=== PATIENT | male | born 1945 | race American Indian/Alaskan Native ===

== ENCOUNTER 2018-06-24 05:55 | Inpatient (IN) | payer MEDICARE ==
--- NOTE | 2018-06-24 06:18 | Emergency Department Report ---
ED Altered Mental Status HPI - General Stated Complaint: AMS Time Seen by Provider: 06/24/18 06:03 Source: EMS Mode of arrival: Stretcher Limitations: Altered Mental Status - History of Present Illness Initial Comments: Patient is a 72-year-old male presents emergency room with complaints of altered mental status. Patient was brought in by EMS. Last known well time at Friday night at 10 PM. Patient was found in his bed speaking incomprehensible sounds. MD Complaint: altered mental status, confusion -: Sudden Severity: severe Consistency of Symptoms: constant - Related Data Home Medications Medication Instructions Recorded Confirmed Last Taken Insulin Aspart Prot/Aspart(Nf) 40 unit SQ QAM 07/09/13 01/17/16 01/16/16 [NovoLOG Mix 70/30 VIAL] Metformin HCl [Metformin] 1,000 mg PO BID 07/09/13 01/17/16 01/16/16 Metoprolol Tartrate 25 mg PO BID 07/09/13 01/17/16 01/16/16 Omeprazole 20 mg PO DAILY 07/09/13 01/17/16 01/16/16 Ergocalciferol [Vitamin D2] 1 cap PO QWEEK 01/17/16 01/17/16 Unknown Ipratropium/Albuter (Nf) 2 puff IH QID PRN 01/17/16 01/17/16 Unknown [Combivent Inhaler] glipiZIDE [Glucotrol] 5 mg PO QDAY 01/17/16 01/17/16 01/16/16 Previous Rx's Medication Instructions Recorded Last Taken Type Furosemide [Lasix TAB] 40 mg PO QDAY #30 tablet 07/18/14 01/16/16 Rx Gabapentin [Neurontin] 300 mg PO BID capsule 07/18/14 01/16/16 Rx Losartan [Cozaar] 25 mg PO QDAY #30 tablet 07/18/14 01/16/16 Rx Spironolactone [Aldactone] 25 mg PO QDAY #30 tablet 07/18/14 01/16/16 Rx Warfarin [Coumadin] 5 mg PO DAILY@1700 tablet 07/18/14 01/16/16 Rx Allergies Allergy/AdvReac Type Severity Reaction Status Date / Time nitroglycerin Allergy Severe Unknown Verified 01/16/16 17:45 ED Review of Systems ROS: Stated complaint: AMS Other details as noted in HPI Comment: Unobtainable due to pts medical conditions ED Past Medical Hx - Past Medical History Previous Medical History?: Yes Hx Hypertension: Yes Hx Congestive Heart Failure: Yes Hx Diabetes: Yes Hx Arthritis: Yes Hx Asthma: Yes (childhood asthma outgrown) - Surgical History Past Surgical History?: Yes Hx Open Heart Surgery: Yes (1999) - Family History Family history: no significant - Social History Smoking Status: Former Smoker Substance Use Type: None - Medications Home Medications: Home Medications Medication Instructions Recorded Confirmed Last Taken Type Insulin Aspart Prot/Aspart(Nf) 40 unit SQ QAM 07/09/13 01/17/16 01/16/16 History [NovoLOG Mix 70/30 VIAL] Metformin HCl [Metformin] 1,000 mg PO BID 07/09/13 01/17/16 01/16/16 History Metoprolol Tartrate 25 mg PO BID 07/09/13 01/17/16 01/16/16 History Omeprazole 20 mg PO DAILY 07/09/13 01/17/16 01/16/16 History Furosemide [Lasix TAB] 40 mg PO QDAY #30 tablet 07/18/14 01/17/16 01/16/16 Rx Gabapentin [Neurontin] 300 mg PO BID capsule 07/18/14 01/17/16 01/16/16 Rx Losartan [Cozaar] 25 mg PO QDAY #30 tablet 07/18/14 01/17/16 01/16/16 Rx Spironolactone [Aldactone] 25 mg PO QDAY #30 tablet 07/18/14 01/17/16 01/16/16 Rx Warfarin [Coumadin] 5 mg PO DAILY@1700 tablet 07/18/14 01/17/16 01/16/16 Rx Ergocalciferol [Vitamin D2] 1 cap PO QWEEK 01/17/16 01/17/16 Unknown History Ipratropium/Albuter (Nf) 2 puff IH QID PRN 01/17/16 01/17/16 Unknown History [Combivent Inhaler] glipiZIDE [Glucotrol] 5 mg PO QDAY 01/17/16 01/17/16 01/16/16 History ED Physical Exam - General Limitations: Altered Mental Status General appearance: alert, in no apparent distress - Head Head exam: Present: atraumatic, normocephalic - Eye Eye exam: Present: normal appearance, PERRL Pupils: Present: normal accommodation - ENT ENT exam: Present: mucous membranes moist - Neck Neck exam: Present: normal inspection - Respiratory Respiratory exam: Present: normal lung sounds bilaterally. Absent: respiratory distress - Cardiovascular Cardiovascular Exam: Present: regular rate, normal rhythm. Absent: systolic murmur, diastolic murmur, rubs, gallop - GI/Abdominal GI/Abdominal exam: Present: soft, normal bowel sounds - Rectal Rectal exam: Present: deferred - Extremities Exam Extremities exam: Present: normal inspection - Back Exam Back exam: Present: normal inspection - Neurological Exam Neurological exam: Present: altered - Expanded Neurological Exam Expanded Best Eye Response ([place]): (4) open spontaneously Best Motor Response ([place]): (4) withdraws to pain Best Verbal Response ([place]): (2) incomprehsible sounds [place] Total: 10 - Psychiatric Psychiatric exam: Present: normal affect, normal mood - Skin Skin exam: Present: warm, dry, intact, normal color. Absent: rash - Assessment Assessment Interval: Baseline - Level of Consciousness 1a. Level of Consciousness: arousable/minor stimuli - LOC Questions 1b. LOC Questions: answers no questions correctly - LOC Command 1c. LOC Commands: performs tasks correctly - Best Gaze 2. Best Gaze: normal - Visual 3. Visual: no visual loss - Facial Palsy 4. Facial Palsy: normal symmetrical movement - Motor Arm 5a. Motor Arm Left: no drift 5b. Motor Arm Right: no drift - Motor Leg 6a. Motor Leg Left: no drift 6b. Motor Leg Right: no drift - Limb Ataxia 7. Limb Ataxia: absent - Sensory 8. Sensory: normal - Best Language 9. Best Language: no aphasia - Dysarthria 10. Dysarthria: normal - Extinction and Inattention 11. Extinction/Inattention: no abnormality - Scoring Total Score: 3 Stroke Severity: Minor Stroke ED Course Vital Signs 06/24/18 06/24/18 06/24/18 06:13 06:23 07:39 Temperature 98.9 F Pulse Rate 105 H 89 Respiratory 20 20 Rate Blood Pressure 166/83 Blood Pressure [Left] O2 Sat by Pulse 100 99 Oximetry 06/24/18 08:29 Temperature Pulse Rate 87 Respiratory 22 Rate Blood Pressure Blood Pressure 170/79 [Left] O2 Sat by Pulse 99 Oximetry - Reevaluation(s) Reevaluation #1: Initial evaluation done. Patient appears distended to be able to protect his airway. Patient's satting 100%. Patient attempts to answer questions but only produces incomprehensible sounds. Patient's eyes are open. Patient withdraws to pain. 06/24/18 06:03 Reevaluation #2: Patient making attempts to answer questions. Patient able to say his last name but still difficult to understand. Family at bedside. Discussed case with family. Family states that Friday night the patient had a few drinks and and possibly on Friday the patient was drinking as well. Patient was found this morning by his son on the floor. Son states he was able to ambulate to the bed but was very confused and not acting right. 06/24/18 07:05 Reevaluation #3: Labs review. Discussed all results with family. Patient was admitted to the hospitalist service. Family agrees with plan of care. 06/24/18 07:46 - Consultations Consultation #1: Hospitalist consulted for admission. Hospitalist to admit patient. Bridge orders were placed 06/24/18 07:46 - Lab Data Result diagrams: 06/24/18 06:15 06/24/18 06:05 Lab Results 06/24/18 06/24/18 06/24/18 Range/Units 06:05 06:05 06:05 WBC (4.5-11.0) K/mm3 RBC (3.65-5.03) M/mm3 Hgb (11.8-15.2) gm/dl Hct (35.5-45.6) % MCV (84-94) fl MCH (28-32) pg MCHC (32-34) % RDW (13.2-15.2) % Plt Count (140-440) K/mm3 Lymph % (Auto) (13.4-35.0) % [place] % (Auto) (0.0-7.3) % Eos % (Auto) (0.0-4.3) % Baso % (Auto) (0.0-1.8) % Lymph # (1.2-5.4) K/mm3 [place] # (0.0-0.8) K/mm3 Eos # (0.0-0.4) K/mm3 Baso # (0.0-0.1) K/mm3 Seg Neutrophils % (40.0-70.0) % Seg Neutrophils # (1.8-7.7) K/mm3 Sodium 142 (137-145) mmol/L Potassium 4.4 (3.6-5.0) mmol/L Chloride 106.7 (98-107) mmol/L Carbon Dioxide 23 (22-30) mmol/L Anion Gap 17 mmol/L BUN 30 H (9-20) mg/dL Creatinine 1.6 H (0.8-1.5) mg/dL Estimated GFR 52 ml/min BUN/Creatinine Ratio 19 % Glucose 150 H (75-100) mg/dL Lactic Acid (0.7-2.0) mmol/L Calcium 9.3 (8.4-10.2) mg/dL Total Bilirubin 0.90 (0.1-1.2) mg/dL AST 67 H (5-40) units/L ALT 18 (7-56) units/L Alkaline Phosphatase 82 (35-129) units/L Total Creatine Kinase 2694 H (55-170) units/L Troponin T 0.056 H (0.00-0.029) ng/mL Total Protein 7.6 (6.3-8.2) g/dL Albumin 3.7 L (3.9-5) g/dL Albumin/Globulin Ratio 0.9 % Urine Color Yellow (Yellow) Urine Turbidity Clear (Clear) Urine pH 5.0 (5.0-7.0) Ur Specific [place] 1.023 (1.003-1.030) Urine Protein 100 mg/dl (Negative) mg/dL Urine Glucose (UA) Neg (Negative) mg/dL Urine Ketones Tr (Negative) mg/dL Urine Blood Lg (Negative) Urine Nitrite Neg (Negative) Urine Bilirubin Neg (Negative) Urine Urobilinogen 2.0 (<2.0) mg/dL Ur Leukocyte Esterase Neg (Negative) Urine WBC (Auto) 1.0 (0.0-6.0) /HPF Urine RBC (Auto) 12.0 (0.0-6.0) /HPF Urine Bacteria (Auto) 1+ (Negative) /HPF Urine Mucus Few /HPF Urine Opiates Screen Presumptive negative Urine Methadone Screen Presumptive negative Ur Barbiturates Screen Presumptive negative Ur Phencyclidine Scrn Presumptive negative Ur Amphetamines Screen Presumptive negative U Benzodiazepines Scrn Presumptive negative Urine Cocaine Screen Presumptive negative U Marijuana (THC) Screen Presumptive negative Drugs of Abuse Note Disclamer Plasma/Serum Alcohol (0-0.07) % 06/24/18 06/24/18 06/24/18 Range/Units 06:05 06:15 06:23 WBC 12.8 H (4.5-11.0) K/mm3 RBC 3.96 (3.65-5.03) M/mm3 Hgb 12.1 (11.8-15.2) gm/dl Hct 35.7 (35.5-45.6) % MCV 90 (84-94) fl MCH 31 (28-32) pg MCHC 34 (32-34) % RDW 14.2 (13.2-15.2) % Plt Count 190 (140-440) K/mm3 Lymph % (Auto) 13.8 (13.4-35.0) % [place] % (Auto) 11.3 H (0.0-7.3) % Eos % (Auto) 0.1 (0.0-4.3) % Baso % (Auto) 0.5 (0.0-1.8) % Lymph # 1.8 (1.2-5.4) K/mm3 [place] # 1.5 H (0.0-0.8) K/mm3 Eos # 0.0 (0.0-0.4) K/mm3 Baso # 0.1 (0.0-0.1) K/mm3 Seg Neutrophils % 74.3 H (40.0-70.0) % Seg Neutrophils # 9.5 H (1.8-7.7) K/mm3 Sodium (137-145) mmol/L Potassium (3.6-5.0) mmol/L Chloride (98-107) mmol/L Carbon Dioxide (22-30) mmol/L Anion Gap mmol/L BUN (9-20) mg/dL Creatinine (0.8-1.5) mg/dL Estimated GFR ml/min BUN/Creatinine Ratio % Glucose (75-100) mg/dL Lactic Acid 2.70 H* (0.7-2.0) mmol/L Calcium (8.4-10.2) mg/dL Total Bilirubin (0.1-1.2) mg/dL AST (5-40) units/L ALT (7-56) units/L Alkaline Phosphatase (35-129) units/L Total Creatine Kinase (55-170) units/L Troponin T (0.00-0.029) ng/mL Total Protein (6.3-8.2) g/dL Albumin (3.9-5) g/dL Albumin/Globulin Ratio % Urine Color (Yellow) Urine Turbidity (Clear) Urine pH (5.0-7.0) Ur Specific [place] (1.003-1.030) Urine Protein (Negative) mg/dL Urine Glucose (UA) (Negative) mg/dL Urine Ketones (Negative) mg/dL Urine Blood (Negative) Urine Nitrite (Negative) Urine Bilirubin (Negative) Urine Urobilinogen (<2.0) mg/dL Ur Leukocyte Esterase (Negative) Urine WBC (Auto) (0.0-6.0) /HPF Urine RBC (Auto) (0.0-6.0) /HPF Urine Bacteria (Auto) (Negative) /HPF Urine Mucus /HPF Urine Opiates Screen Urine Methadone Screen Ur Barbiturates Screen Ur Phencyclidine Scrn Ur Amphetamines Screen U Benzodiazepines Scrn Urine Cocaine Screen U Marijuana (THC) Screen Drugs of Abuse Note Plasma/Serum Alcohol < 0.01 (0-0.07) % - EKG Data -: EKG Interpreted by Fl EKG shows normal: axis, intervals, QRS complexes, ST-T waves Rate: normal Interpretation: other (afib) - Radiology Data Radiology results: report reviewed PROCEDURE: CT HEAD/BRAIN WO CON TECHNIQUE: Routine axial imaging was obtained of the brain without contrast. HISTORY: Altered Mental Status COMPARISONS: None FINDINGS: There is motion artifact compromising multiple images. There is age-related volume loss. The ventricular system is appropriate in size and is symmetric. There are remote lacunar infarcts in the basal ganglia on the right side. There are remote lacunar infarcts in the lower [place]. There is no evidence of acute stroke or hemorrhage. The calvarium appears intact. The sinuses reveal patchy mucosal thickening in the ethmoidal air cells. IMPRESSION: Age-related volume loss with remote lacunar infarcts in the right basal ganglia and [place]. No evidence of acute stroke or hemorrhage. Mild bilateral ethmoidal sinusitis.. PROCEDURE: XR CHEST 1V AP TECHNIQUE: Chest radiograph single view. HISTORY: Altered Mental Status COMPARISONS: None . FINDINGS: Heart: Normal. Mediastinum/Vessels: Normal. Lungs/Pleural space: Normal. Bony thorax: No acute osseous abnormality. Life support devices: None. IMPRESSION: No acute cardiopulmonary abnormality. - Medical Decision Making Patient is a 72-year-old male presents emergency room with complaints of altered mental status. Patient will be admitted to the hospitalist service. Patient had a head CT was negative. Patient's chest x-ray unremarkable. Patient has some abnormalities on his lab. Patient's labs remarkable for elevated troponin and elevated CK and elevated WBC. UA is essentially normal.EKG done shows A. fib with a normal rate, All other intervals within normal limits. Patient's EKG consistent with mild rhabdomyolysis. Patient's troponin most likely elevated due to the renal insufficiency and A. fib and dehydration. Case fully discussed with hospitalist. Hospitalist to admit patient. - Differential Diagnosis dehydration. ams./ Encephalopathy. UTI Critical Care Time: Yes Critical care attestation.: If time is entered above; I have spent that time in minutes in the direct care of this critically ill patient, excluding procedure time. Critical Care Time: 45 minutes ED Disposition Clinical Impression: Encephalopathy, Dehydration, Acute renal insufficiency, Lactic acid acidosis, Elevated troponin Altered mental state Qualifiers: Altered mental status type: unspecified Qualified Code(s): R41.82 - Altered mental status, unspecified Rhabdomyolysis Qualifiers: Rhabdomyolysis type: non-traumatic Qualified Code(s): M62.82 - Rhabdomyolysis Afib Qualifiers: Atrial fibrillation type: chronic Qualified Code(s): I48.2 - Chronic atrial fibrillation Disposition: OP ADMIT IP TO THIS HOSP Is pt being admited?: Yes Does the pt Need Aspirin: No Condition: Critical Time of Disposition: 07:53
[2018-06-24 06:23] LABS: Basophils # (Auto) 0.1 K/mm3 (0.0-0.1); Basophils % (Auto) 0.5 % (0.0-1.8); Eosinophils % (Auto) 0.1 % (0.0-4.3); Hematocrit 35.7 % (35.5-45.6); Hemoglobin 12.1 gm/dl (11.8-15.2); Lymphocytes # (Auto) 1.8 K/mm3 (1.2-5.4); Lymphocytes % (Auto) 13.8 % (13.4-35.0); Mean Corpuscular HGB Conc 34 % (32-34); Mean Corpuscular Volume 90 fl (84-94); Monocytes # (Auto) 1.5 K/mm3 (0.0-0.8); Monocytes % (Auto) 11.3 % (0.0-7.3); Platelet Count 190 K/mm3 (140-440); Red Blood Count 3.96 M/mm3 (3.65-5.03); Red Cell Distribution Width 14.2 % (13.2-15.2)
[2018-06-24 06:28] LABS: Bacteria,Urine 1+ /HPF (Negative); Bilirubin,Urine NEG (Negative); Blood,Urine LG (Negative); Color,Urine Yellow (Yellow); Mucus,Urine FEW /HPF
[2018-06-24] MEDS ORDERED: MAXIPIME/NS 2 GM/100 ML 2 GM/100 ML BAG IV ONE (06:32)
[2018-06-24 06:34] LABS: Amphetamine Screen,Urine PRESUMPTIVE NEGATIVE; Benzodiazepines Screen,Urine PRESUMPTIVE NEGATIVE; Cannabinoid Screen,Urine PRESUMPTIVE NEGATIVE; Cocaine Screen,Urine PRESUMPTIVE NEGATIVE; Methadone Screen,Urine PRESUMPTIVE NEGATIVE; Opiate Screen,Urine PRESUMPTIVE NEGATIVE
[2018-06-24 06:42] LABS: Albumin 3.7 g/dL (3.9-5); Calcium 9.3 mg/dL (8.4-10.2)
--- NOTE | 2018-06-24 06:47 | XRay Report ---
PROCEDURE: XR CHEST 1V AP TECHNIQUE: Chest radiograph single view. HISTORY: Altered Mental Status COMPARISONS: None . FINDINGS: Heart: Normal. Mediastinum/Vessels: Normal. Lungs/Pleural space: Normal. Bony thorax: No acute osseous abnormality. Life support devices: None. IMPRESSION: No acute cardiopulmonary abnormality. This document is electronically signed by Brian Peterson MD., June 24 2018 06:45:21 AM ET
--- NOTE | 2018-06-24 07:17 | Cat Scan Report ---
PROCEDURE: CT HEAD/BRAIN WO CON TECHNIQUE: Routine axial imaging was obtained of the brain without contrast. HISTORY: Altered Mental Status COMPARISONS: None FINDINGS: There is motion artifact compromising multiple images. There is age-related volume loss. The ventricu lar system is appropriate in size and is symmetric. There are remote lacunar infarcts in the basal [place] on the right side. There are remote lacunar infarcts in the lower [place]. There is no evidence of acute stroke or hemorrhage. The calvarium appears intact. The sinuses reveal patchy mucosal thickeni ng in the ethmoidal air cells. IMPRESSION: Age-related volume loss with remote lacunar infarcts in the right basal ganglia and [place]. No evidence of acute stroke or hemorrhage. Mild bilateral ethmoidal sinusitis.. This document is electronically signed by Satya Pastor MD., June 24 2018 07:15:52 AM ET
[2018-06-24] MEDS ORDERED: NACL 0.9% 1000 ML 1,000 ML IV ONE ×2 (07:30→07:34)
[2018-06-24] MEDS ORDERED: ZOFRAN IV PRN (08:27)
[2018-06-24] MEDS ORDERED: MILK OF MAGNESIA PO PRN (08:27)
[2018-06-24] MEDS ORDERED: REGLAN PO PRN (08:27)
[2018-06-24] MEDS ORDERED: PHENERGAN PR PRN (08:27)
[2018-06-24] MEDS ORDERED: DULCOLAX PR PRN (08:27)
[2018-06-24] MEDS ORDERED: SODIUM CHLORIDE FLUSH SYRINGE 10 ML IV PRN (08:27)
[2018-06-24] MEDS ORDERED: D50W (25GM) Syringe IV PRN (08:29)
[2018-06-24] MEDS ORDERED: NACL 0.9% 1000 ML 1,000 ML IV SCH (09:00)
[2018-06-24 09:40] LABS: Chol/HDL Ratio 2.25 %
[2018-06-24] MEDS ORDERED: ASPIRIN PR ONE (10:30)
--- NOTE | 2018-06-24 11:49 | History and Physical Report ---
History of Present Illness Date of examination: 06/24/18 Date of admission: 06/24/18 07:50 Chief complaint: Altered mental status History of present illness: History is obtained from his son and chart review. Patient was altered and was not able to give any history. 72-year-old -Serbian male with past medical history significant for hypertension, CAD status post CABG, chronic A. fib, diabetes mellitus, hyperlipidemia, prostate cancer was brought to the emergency department via EMS after he was found by his son lying in the floor around 1 AM this morning. His son said the last time he saw the patient was yesterday morning and at that time patient didn't have any problems. This morning her symptoms lying the floor, lost bowel and bladder activity, drooling of saliva but no seizure activity or fascial palsy. In the emergency department patient has elevated lactic acid level, elevated CK and mild leukocytosis. Patient admitted to the floor for further evaluation and management. I will do CVA workup, IV fluids. ROS couldn't obtained because of altered mental status. Past History Past Medical History: atrial fib, diabetes, hypertension, hyperlipidemia Past Surgical History: CABG Social history: smoking (smokes cigarretes but son was not sure how many), full code. denies: alcohol abuse, prescription drug abuse, IV drug use Family history: no significant family history Medications and Allergies Allergies Allergy/AdvReac Type Severity Reaction Status Date / Time nitroglycerin Allergy Severe Unknown Verified 01/16/16 17:45 Home Medications Medication Instructions Recorded Confirmed Last Taken Type Insulin Aspart Prot/Aspart(Nf) 40 unit SQ QAM 07/09/13 01/17/16 01/16/16 History [NovoLOG Mix 70/30 VIAL] Metformin HCl [Metformin] 1,000 mg PO BID 07/09/13 01/17/16 01/16/16 History Metoprolol Tartrate 25 mg PO BID 07/09/13 01/17/16 01/16/16 History Omeprazole 20 mg PO DAILY 07/09/13 01/17/16 01/16/16 History Furosemide [Lasix TAB] 40 mg PO QDAY #30 tablet 07/18/14 01/17/16 01/16/16 Rx Gabapentin [Neurontin] 300 mg PO BID capsule 07/18/14 01/17/16 01/16/16 Rx Losartan [Cozaar] 25 mg PO QDAY #30 tablet 07/18/14 01/17/16 01/16/16 Rx Spironolactone [Aldactone] 25 mg PO QDAY #30 tablet 07/18/14 01/17/16 01/16/16 Rx Warfarin [Coumadin] 5 mg PO DAILY@1700 tablet 07/18/14 01/17/16 01/16/16 Rx Ergocalciferol [Vitamin D2] 1 cap PO QWEEK 01/17/16 01/17/16 Unknown History Ipratropium/Albuter (Nf) 2 puff IH QID PRN 01/17/16 01/17/16 Unknown History [Combivent Inhaler] glipiZIDE [Glucotrol] 5 mg PO QDAY 01/17/16 01/17/16 01/16/16 History Active Meds: Active Medications Acetaminophen (Tylenol) 650 mg PO Q4H PRN PRN Reason: Pain, Mild (1-3) Atorvastatin Calcium (Lipitor) 40 mg PO QHS MICHEL Bisacodyl (Dulcolax) 10 mg AK QDAY PRN PRN Reason: Constipation Dextrose (D50w (25gm) Syringe) 50 ml IV PRN PRN PRN Reason: Hypoglycemia Sodium Chloride (Nacl 0.9% 1000 Ml) 1,000 mls @ 100 mls/hr IV DIRECT MICHEL Levetiracetam 750 mg/ Sodium (Chloride) 107.5 mls @ 400 mls/hr IV Q12HR MICHEL Insulin Human Lispro (Humalog) 0 unit SUB-Q ACHS MICHEL; Protocol Lorazepam (Ativan) 1 mg IV ONCE PRN PRN Reason: Agitation Magnesium Hydroxide (Milk Of Magnesia) 30 ml PO Q4H PRN PRN Reason: Constipation Metoclopramide HCl (Reglan) 10 mg PO Q6H PRN PRN Reason: Nausea And Vomiting Ondansetron HCl (Zofran) 4 mg IV Q8H PRN PRN Reason: Nausea And Vomiting Promethazine HCl (Phenergan) 25 mg AK Q6H PRN PRN Reason: Nausea And Vomiting Sodium Chloride (Sodium Chloride Flush Syringe 10 Ml) 10 ml IV PRN PRN PRN Reason: LINE FLUSH Review of Systems ROS unobtainable: due to mental status (Couldn't obtained baecause of AMS.) Exam - Physical Exam Narrative exam: Patient is confused, incoherent. The patient appeared well nourished and normally developed. Vital signs as documented. Head exam is unremarkable. No scleral icterus . Neck is without jugular venous distension, thyromegaly, or carotid bruits. Lungs are clear to auscultation. Cardiac exam reveals regular rate and Rhythm. Abdominal exam reveals normal bowel sounds. Extremities are nonedematous and both femoral and pedal pulses are normal. [employer] SPECIALIST: confused, incoherent speech. - Constitutional Vitals: Temp Pulse Resp BP Pulse Ox 98.9 F 87 22 170/79 99 06/24/18 06:13 06/24/18 08:29 06/24/18 08:29 06/24/18 08:29 06/24/18 08:29 Results - Labs CBC & Chem 7: 06/24/18 06:15 06/24/18 06:05 Labs: Laboratory Last Values WBC 12.8 K/mm3 (4.5-11.0) H 06/24/18 06:15 RBC 3.96 M/mm3 (3.65-5.03) 06/24/18 06:15 Hgb 12.1 gm/dl (11.8-15.2) 06/24/18 06:15 Hct 35.7 % (35.5-45.6) 06/24/18 06:15 MCV 90 fl (84-94) 06/24/18 06:15 MCH 31 pg (28-32) 06/24/18 06:15 MCHC 34 % (32-34) 06/24/18 06:15 RDW 14.2 % (13.2-15.2) 06/24/18 06:15 Plt Count 190 K/mm3 (140-440) 06/24/18 06:15 Lymph % (Auto) 13.8 % (13.4-35.0) 06/24/18 06:15 [place] % (Auto) 11.3 % (0.0-7.3) H 06/24/18 06:15 Eos % (Auto) 0.1 % (0.0-4.3) 06/24/18 06:15 Baso % (Auto) 0.5 % (0.0-1.8) 06/24/18 06:15 Lymph # 1.8 K/mm3 (1.2-5.4) 06/24/18 06:15 [place] # 1.5 K/mm3 (0.0-0.8) H 06/24/18 06:15 Eos # 0.0 K/mm3 (0.0-0.4) 06/24/18 06:15 Baso # 0.1 K/mm3 (0.0-0.1) 06/24/18 06:15 Seg Neutrophils % 74.3 % (40.0-70.0) H 06/24/18 06:15 Seg Neutrophils # 9.5 K/mm3 (1.8-7.7) H 06/24/18 06:15 Sodium 142 mmol/L (137-145) 06/24/18 06:05 Potassium 4.4 mmol/L (3.6-5.0) 06/24/18 06:05 Chloride 106.7 mmol/L (98-107) 06/24/18 06:05 Carbon Dioxide 23 mmol/L (22-30) 06/24/18 06:05 Anion Gap 17 mmol/L 06/24/18 06:05 BUN 30 mg/dL (9-20) H 06/24/18 06:05 Creatinine 1.6 mg/dL (0.8-1.5) H 06/24/18 06:05 Estimated GFR 52 ml/min 06/24/18 06:05 BUN/Creatinine Ratio 19 % 06/24/18 06:05 Glucose 150 mg/dL (75-100) H 06/24/18 06:05 POC Glucose 147 (70-105) H 06/24/18 11:43 Lactic Acid 2.10 mmol/L (0.7-2.0) H* 06/24/18 08:37 Calcium 9.3 mg/dL (8.4-10.2) 06/24/18 06:05 Total Bilirubin 0.90 mg/dL (0.1-1.2) 06/24/18 06:05 AST 67 units/L (5-40) H 06/24/18 06:05 ALT 18 units/L (7-56) 06/24/18 06:05 Alkaline Phosphatase 82 units/L (35-129) 06/24/18 06:05 Total Creatine Kinase 2694 units/L (55-170) H 06/24/18 06:05 Troponin T 0.056 ng/mL (0.00-0.029) H 06/24/18 06:05 Total Protein 7.6 g/dL (6.3-8.2) 06/24/18 06:05 Albumin 3.7 g/dL (3.9-5) L 06/24/18 06:05 Albumin/Globulin Ratio 0.9 % 06/24/18 06:05 Triglycerides 81 mg/dL (2-149) 06/24/18 06:05 Cholesterol 142 mg/dL (50-199) 06/24/18 06:05 LDL Cholesterol Direct 75 mg/dL (50-130) 06/24/18 06:05 HDL Cholesterol 63 mg/dL (40-59) H 06/24/18 06:05 Cholesterol/HDL Ratio 2.25 % 06/24/18 06:05 Urine Color Yellow (Yellow) 06/24/18 06:05 Urine Turbidity Clear (Clear) 06/24/18 06:05 Urine pH 5.0 (5.0-7.0) 06/24/18 06:05 Ur Specific [place] 1.023 (1.003-1.030) 06/24/18 06:05 Urine Protein 100 mg/dl mg/dL (Negative) 06/24/18 06:05 Urine Glucose (UA) Neg mg/dL (Negative) 06/24/18 06:05 Urine Ketones Tr mg/dL (Negative) 06/24/18 06:05 Urine Blood Lg (Negative) 06/24/18 06:05 Urine Nitrite Neg (Negative) 06/24/18 06:05 Urine Bilirubin Neg (Negative) 06/24/18 06:05 Urine Urobilinogen 2.0 mg/dL (<2.0) 06/24/18 06:05 Ur Leukocyte Esterase Neg (Negative) 06/24/18 06:05 Urine WBC (Auto) 1.0 /HPF (0.0-6.0) 06/24/18 06:05 Urine RBC (Auto) 12.0 /HPF (0.0-6.0) 06/24/18 06:05 Urine Bacteria (Auto) 1+ /HPF (Negative) 06/24/18 06:05 Urine Mucus Few /HPF 06/24/18 06:05 Urine Opiates Screen Presumptive negative 06/24/18 06:05 Urine Methadone Screen Presumptive negative 06/24/18 06:05 Ur Barbiturates Screen Presumptive negative 06/24/18 06:05 Ur Phencyclidine Scrn Presumptive negative 06/24/18 06:05 Ur Amphetamines Screen Presumptive negative 06/24/18 06:05 U Benzodiazepines Scrn Presumptive negative 06/24/18 06:05 Urine Cocaine Screen Presumptive negative 06/24/18 06:05 U Marijuana (THC) Screen Presumptive negative 06/24/18 06:05 Drugs of Abuse Note Disclamer 06/24/18 06:05 Plasma/Serum Alcohol < 0.01 % (0-0.07) 06/24/18 06:05 Assessment and Plan Assessment and plan: Altered mental status - Patient was found lying in the floor, could be CVA versus seizure - MRI, MRA, carotid Dopplers, echo, neurology consult - Patient is on Keppra -Patient is able to take care of his airways History of A. fib on Coumadin - Going to check INR - Currently patient is sinus rhythm - Continue to restart his Coumadin Hypertension - Controlled Diabetes mellitus - Sliding-scale insulin, Accu-Chek, adjust his insulin as needed Rhabdomyolysis, lactic acidosis - Patient is on IV fluids DVT prophylaxis -SCD and now Disposition - Admit to MICU Advance Directives: Yes
[2018-06-24] MEDS ORDERED: ATIVAN IV PRN (12:00)
[2018-06-24] MEDS: KEPPRA 750 MG in NACL 0.9% 100 ML IV SCH ×2 (12:14→22:00)
[2018-06-24] MEDS: HumaLOG SUB-Q SCH ×3 (12:32→22:13)
[2018-06-24 13:43] LABS: INR 1.76 (0.87-1.13)
--- NOTE | 2018-06-24 18:07 | Consultation ---
History of Present Illness Consult date: 06/24/18 Chief complaint: found down, confused History of present illness: This is a 72 YO M with history of seizure who was found down , incontinent and found to have elevated CK and lactic acid. No famil david bedside, all history is as per chart. On my arrival pt is confused, makes eye contact but doesn't follow commands. Mumbles. Unclear if he is compliant with meds at home. Past History Past Medical History: atrial fib, diabetes, hypertension, hyperlipidemia Past Surgical History: CABG Social history: smoking (smokes cigarretes but son was not sure how many), full code. denies: alcohol abuse, prescription drug abuse, IV drug use Family history: no significant family history Medications and Allergies Allergies Allergy/AdvReac Type Severity Reaction Status Date / Time nitroglycerin Allergy Severe Unknown Verified 01/16/16 17:45 Home Medications Medication Instructions Recorded Confirmed Last Taken Type Insulin Aspart Prot/Aspart(Nf) 40 unit SQ QAM 07/09/13 01/17/16 01/16/16 History [NovoLOG Mix 70/30 VIAL] Metformin HCl [Metformin] 1,000 mg PO BID 07/09/13 01/17/16 01/16/16 History Metoprolol Tartrate 25 mg PO BID 07/09/13 01/17/16 01/16/16 History Omeprazole 20 mg PO DAILY 07/09/13 01/17/16 01/16/16 History Furosemide [Lasix TAB] 40 mg PO QDAY #30 tablet 07/18/14 01/17/16 01/16/16 Rx Gabapentin [Neurontin] 300 mg PO BID capsule 07/18/14 01/17/16 01/16/16 Rx Losartan [Cozaar] 25 mg PO QDAY #30 tablet 07/18/14 01/17/16 01/16/16 Rx Spironolactone [Aldactone] 25 mg PO QDAY #30 tablet 07/18/14 01/17/16 01/16/16 Rx Warfarin [Coumadin] 5 mg PO DAILY@1700 tablet 07/18/14 01/17/16 01/16/16 Rx Ergocalciferol [Vitamin D2] 1 cap PO QWEEK 01/17/16 01/17/16 Unknown History Ipratropium/Albuter (Nf) 2 puff IH QID PRN 01/17/16 01/17/16 Unknown History [Combivent Inhaler] glipiZIDE [Glucotrol] 5 mg PO QDAY 01/17/16 01/17/16 01/16/16 History Active Meds: Active Medications Acetaminophen (Tylenol) 650 mg PO Q4H PRN PRN Reason: Pain, Mild (1-3) Atorvastatin Calcium (Lipitor) 40 mg PO QHS MICHEL Bisacodyl (Dulcolax) 10 mg OR QDAY PRN PRN Reason: Constipation Dextrose (D50w (25gm) Syringe) 50 ml IV PRN PRN PRN Reason: Hypoglycemia Sodium Chloride (Nacl 0.9% 1000 Ml) 1,000 mls @ 100 mls/hr IV DIRECT MICHEL Levetiracetam 750 mg/ Sodium (Chloride) 107.5 mls @ 400 mls/hr IV Q12HR [facility] Last Infusion: 06/24/18 12:32 Dose: Infused Documented by: Insulin Human Lispro (Humalog) 0 unit SUB-Q ACHS [facility]; Protocol Last Admin: 06/24/18 16:34 Dose: Not Given Documented by: Lorazepam (Ativan) 1 mg IV ONCE PRN PRN Reason: Agitation Magnesium Hydroxide (Milk Of Magnesia) 30 ml PO Q4H PRN PRN Reason: Constipation Metoclopramide HCl (Reglan) 10 mg PO Q6H PRN PRN Reason: Nausea And Vomiting Ondansetron HCl (Zofran) 4 mg IV Q8H PRN PRN Reason: Nausea And Vomiting Promethazine HCl (Phenergan) 25 mg OR Q6H PRN PRN Reason: Nausea And Vomiting Sodium Chloride (Sodium Chloride Flush Syringe 10 Ml) 10 ml IV PRN PRN PRN Reason: LINE FLUSH Review of Systems ROS unobtainable: due to mental status Physical Examination - Vital Signs Vital Signs: Vital Signs Temp Pulse Resp BP Pulse Ox 98.9 F 105 H 20 166/83 100 06/24/18 06:13 06/24/18 06:13 06/24/18 06:13 06/24/18 06:13 06/24/18 06:13 - EENT EENT: Present: PERRL, mucous membranes moist - Respiratory Respiratory: Present: lungs clear - Cardiovascular Cardiovascular: Present: regular rate - Gastrointestinal Gastrointestinal: Present: normoactive bowel sounds - Neurologic Cranial nerve examination: PERRL, EOMI Detailed motor examination: grossly full strength in Detailed sensory examination: light touch Reflexes: 1+: ankle, bicep, knee, tricep Results - Laboratory Findings CBC and BMP: 06/24/18 06:15 06/24/18 06:05 Abnormal Lab Findings: Abnormal Labs 06/24/18 06/24/18 06/24/18 06:05 06:15 06:23 WBC 12.8 H [place] % (Auto) 11.3 H [place] # 1.5 H Seg Neutrophils % 74.3 H Seg Neutrophils # 9.5 H PT INR BUN 30 H Creatinine 1.6 H Glucose 150 H POC Glucose Lactic Acid 2.70 H* AST 67 H Total Creatine Kinase 2694 H Troponin T 0.056 H Albumin 3.7 L HDL Cholesterol 63 H 06/24/18 06/24/18 06/24/18 08:37 11:43 13:20 WBC [place] % (Auto) [place] # Seg Neutrophils % Seg Neutrophils # PT 21.7 H INR 1.76 H BUN Creatinine Glucose POC Glucose 147 H Lactic Acid 2.10 H* AST Total Creatine Kinase Troponin T Albumin HDL Cholesterol 06/24/18 16:23 WBC [place] % (Auto) [place] # Seg Neutrophils % Seg Neutrophils # PT INR BUN Creatinine Glucose POC Glucose 129 H Lactic Acid AST Total Creatine Kinase Troponin T Albumin HDL Cholesterol - Diagnostic Findings Additional findings: This is a 72 YO M with change in mental status, ? post ictal s/p seizure Recommend: EEG Will give extra dose of Keppra now, 750 mg, keep maintenance at 750 mg BID for now. If pt with non convulsive seizsures max out Keppra to 1500 mg BID MRI Brain to rule out other pathology that might be causing his symptoms ammonia, tsh, b12, ua uds if not already done avoid sedating meds when possible Continue care for all medical issues as you are doing
[2018-06-24] MEDS ORDERED: KEPPRA 1,000 MG in NACL 0.9% 100 ML IV ONE (18:08)
[2018-06-24] MEDS ORDERED: ATIVAN IV ONE (19:00)
--- NOTE | 2018-06-24 23:17 | Vascular Lab Report ---
PROCEDURE: VL CAROTID DUPLEX BILAT TECHNIQUE: Duplex Doppler ultrasound of the common, internal and external carotid arteries and the v ertebral arteries was performed bilaterally. Ponce scale imaging, velocity spectral waveform analysis, and color flow Doppler were employed. HISTORY: stroke COMPARISONS: None . Note: Measurement of carotid stenosis is based on flow velocity values that correlate with the [place] Symptomatic Carotid Endarterectomy Trial (NASCET) based stenosis criteria using the internal carotid artery diameter as the denominator for stenosis calculation. FINDINGS: RIGHT carotid artery: Velocities: ICA PSV: 88 cm/sec ICA End diastolic: 22 cm/sec CCA PSV: 102 cm/sec IC/CC ratio: 0.8 Plaque/color flow: Mild heterogeneous plaque without significant spectral broadening or abnormal col or flow . RIGHT vertebral artery: Antegrade systolic and diastolic flow LEFT carotid artery: Velocities: ICA PSV: 141 cm/sec ICA End diastolic: 15 cm/sec CCA PSV: 102 cm/sec IC/CC ratio: 1 Plaque/color flow: Mild heterogeneous plaque without significant spectral broadening or abnormal col or flow . LEFT vertebral artery: Not visualized on this study IMPRESSION: 1. RIGHT carotid: No hemodynamically significant (less than 50 percent) internal carotid artery liban nosis. 2. LEFT carotid: No hemodynamically significant (less than 50 percent) internal carotid artery sten osis. 3. Vertebral arteries: Right vertebral has a normal appearance. The left vertebral artery is not vi sualized on this study. This document is electronically signed by Kathi Ray DO., June 24 2018 11:15:57 PM ET
[2018-06-25 05:23] LABS: Basophils # (Auto) 0.1 K/mm3 (0.0-0.1); Basophils % (Auto) 1.4 % (0.0-1.8); Eosinophils # (Auto) 0.1 K/mm3 (0.0-0.4); Eosinophils % (Auto) 0.8 % (0.0-4.3); Hematocrit 36.4 % (35.5-45.6); Hemoglobin 12.1 gm/dl (11.8-15.2); Lymphocytes # (Auto) 1.9 K/mm3 (1.2-5.4); Lymphocytes % (Auto) 18.9 % (13.4-35.0); Mean Corpuscular HGB Conc 33 % (32-34); Mean Corpuscular Volume 92 fl (84-94); Monocytes # (Auto) 1.2 K/mm3 (0.0-0.8); Platelet Count 168 K/mm3 (140-440); Red Blood Count 3.97 M/mm3 (3.65-5.03); Red Cell Distribution Width 14.1 % (13.2-15.2)
[2018-06-25 05:50] LABS: BUN/Creatinine Ratio 21; Blood Urea Nitrogen 29 mg/dL (9-20); Calcium 9.5 mg/dL (8.4-10.2); Hemolysis Index 4
[2018-06-25] MEDS: HumaLOG SUB-Q SCH ×3 (08:00→17:03)
[2018-06-25] MEDS ORDERED: NON-FORMULARY (Omeprazole [Omeprazole] 20 MG) PO SCH (10:00)
--- NOTE | 2018-06-25 10:48 | XRay Report ---
AP ABDOMEN: HISTORY: Dobbhoff tube placement. The Dobbhoff tube is coiled in the stomach with its tip near the GE junction. The abdominal gas pattern is unremarkable. No masses or organomegaly is identified and there is no gross evidence of free air or fluid. No significant soft tissue calcifications are noted. IMPRESSION: Unremarkable abdomen. Dobbhoff tube as described.
[2018-06-25] MEDS ORDERED: SODIUM BICARBONATE FEEDTUBE PRN (12:55)
[2018-06-25] MEDS ORDERED: PANCREAZE DR 10,500 UNIT FEEDTUBE PRN (12:55)
[2018-06-25] MEDS ORDERED: SIMPLE SYRUP FEEDTUBE PRN ×2 (12:55)
--- NOTE | 2018-06-25 14:12 | XRay Report ---
AP ABDOMEN: HISTORY: Dobbhoff tube placement. The Dobbhoff tube is unchanged in position since earlier today at 0951 hours. The tube is coiled upon itself with the tip near the GE junction. The intestinal gas pattern remains unremarkable. IMPRESSION: No change.
[2018-06-25] MEDS: KEPPRA 750 MG in NACL 0.9% 100 ML IV SCH ×2 (14:44→22:41)
[2018-06-25] MEDS: ALDACTONE PO SCH (14:45)
[2018-06-25] MEDS: LASIX PO SCH (14:46)
[2018-06-25] MEDS: COZAAR PO SCH (14:46)
[2018-06-25] MEDS: LOPRESSOR PO SCH ×2 (14:46→22:43)
[2018-06-25] MEDS: PROTONIX PO SCH (14:47)
[2018-06-25] MEDS: NEURONTIN PO SCH ×2 (14:47→22:42)
--- NOTE | 2018-06-25 14:59 | Progress Note ---
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 His speech was incoherent Hospitalist Physical - Physical exam Narrative exam: Patient is confused, incoherent. The patient appeared well nourished and normally developed. Vital signs as documented. Head exam is unremarkable. No scleral icterus . Neck is without jugular venous distension, thyromegaly, or carotid bruits. Lungs are clear to auscultation. Cardiac exam reveals regular rate and Rhythm. Abdominal exam reveals normal bowel sounds. Extremities are nonedematous and both femoral and pedal pulses are normal. 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 - Constitutional Vitals: Temp Pulse Resp BP Pulse Ox 99.2 F 95 H 26 H 126/93 96 06/25/18 12:00 06/25/18 14:46 06/25/18 14:01 06/25/18 14:46 06/25/18 14:01 Results - Labs CBC & Chem 7: 06/25/18 05:05 06/25/18 05:05 Labs: Laboratory Last Values WBC 9.8 K/mm3 (4.5-11.0) 06/25/18 05:05 RBC 3.97 M/mm3 (3.65-5.03) 06/25/18 05:05 Hgb 12.1 gm/dl (11.8-15.2) 06/25/18 05:05 Hct 36.4 % (35.5-45.6) 06/25/18 05:05 MCV 92 fl (84-94) 06/25/18 05:05 MCH 30 pg (28-32) 06/25/18 05:05 MCHC 33 % (32-34) 06/25/18 05:05 RDW 14.1 % (13.2-15.2) 06/25/18 05:05 Plt Count 168 K/mm3 (140-440) 06/25/18 05:05 Lymph % (Auto) 18.9 % (13.4-35.0) 06/25/18 05:05 [place] % (Auto) 12.0 % (0.0-7.3) H 06/25/18 05:05 Eos % (Auto) 0.8 % (0.0-4.3) 06/25/18 05:05 Baso % (Auto) 1.4 % (0.0-1.8) 06/25/18 05:05 Lymph # 1.9 K/mm3 (1.2-5.4) 06/25/18 05:05 [place] # 1.2 K/mm3 (0.0-0.8) H 06/25/18 05:05 Eos # 0.1 K/mm3 (0.0-0.4) 06/25/18 05:05 Baso # 0.1 K/mm3 (0.0-0.1) 06/25/18 05:05 Seg Neutrophils % 66.9 % (40.0-70.0) 06/25/18 05:05 Seg Neutrophils # 6.5 K/mm3 (1.8-7.7) 06/25/18 05:05 PT 21.7 Sec. (12.2-14.9) H 06/24/18 13:20 INR 1.76 (0.87-1.13) H 06/24/18 13:20 Sodium 145 mmol/L (137-145) 06/25/18 05:05 Potassium 4.2 mmol/L (3.6-5.0) 06/25/18 05:05 Chloride 110.8 mmol/L (98-107) H 06/25/18 05:05 Carbon Dioxide 19 mmol/L (22-30) L 06/25/18 05:05 Anion Gap 19 mmol/L 06/25/18 05:05 BUN 29 mg/dL (9-20) H 06/25/18 05:05 Creatinine 1.4 mg/dL (0.8-1.5) 06/25/18 05:05 Estimated GFR > 60 ml/min 06/25/18 05:05 BUN/Creatinine Ratio 21 % 06/25/18 05:05 Glucose 163 mg/dL (75-100) H 06/25/18 05:05 POC Glucose 175 (70-105) H 06/25/18 11:41 Lactic Acid 1.60 mmol/L (0.7-2.0) 06/24/18 11:25 Calcium 9.5 mg/dL (8.4-10.2) 06/25/18 05:05 Total Bilirubin 0.90 mg/dL (0.1-1.2) 06/24/18 06:05 AST 67 units/L (5-40) H 06/24/18 06:05 ALT 18 units/L (7-56) 06/24/18 06:05 Alkaline Phosphatase 82 units/L (35-129) 06/24/18 06:05 Ammonia 53.0 umol/L (25-60) 06/24/18 19:42 Total Creatine Kinase 1644 units/L (55-170) H 06/25/18 07:49 Troponin T 0.071 ng/mL (0.00-0.029) H D 06/25/18 07:49 Total Protein 7.6 g/dL (6.3-8.2) 06/24/18 06:05 Albumin 3.7 g/dL (3.9-5) L 06/24/18 06:05 Albumin/Globulin Ratio 0.9 % 06/24/18 06:05 Triglycerides 81 mg/dL (2-149) 06/24/18 06:05 Cholesterol 142 mg/dL (50-199) 06/24/18 06:05 LDL Cholesterol Direct 75 mg/dL (50-130) 06/24/18 06:05 HDL Cholesterol 63 mg/dL (40-59) H 06/24/18 06:05 Cholesterol/HDL Ratio 2.25 % 06/24/18 06:05 Vitamin B12 653.2 pg/mL (211-911) 06/24/18 19:42 TSH 2.270 mlU/mL (0.270-4.200) 06/24/18 19:42 Urine Color Yellow (Yellow) 06/24/18 06:05 Urine Turbidity Clear (Clear) 06/24/18 06:05 Urine pH 5.0 (5.0-7.0) 06/24/18 06:05 Ur Specific [place] 1.023 (1.003-1.030) 06/24/18 06:05 Urine Protein 100 mg/dl mg/dL (Negative) 06/24/18 06:05 Urine Glucose (UA) Neg mg/dL (Negative) 06/24/18 06:05 Urine Ketones Tr mg/dL (Negative) 06/24/18 06:05 Urine Blood Lg (Negative) 06/24/18 06:05 Urine Nitrite Neg (Negative) 06/24/18 06:05 Urine Bilirubin Neg (Negative) 06/24/18 06:05 Urine Urobilinogen 2.0 mg/dL (<2.0) 06/24/18 06:05 Ur Leukocyte Esterase Neg (Negative) 06/24/18 06:05 Urine WBC (Auto) 1.0 /HPF (0.0-6.0) 06/24/18 06:05 Urine RBC (Auto) 12.0 /HPF (0.0-6.0) 06/24/18 06:05 Urine Bacteria (Auto) 1+ /HPF (Negative) 06/24/18 06:05 Urine Mucus Few /HPF 06/24/18 06:05 Urine Opiates Screen Presumptive negative 06/24/18 06:05 Urine Methadone Screen Presumptive negative 06/24/18 06:05 Ur Barbiturates Screen Presumptive negative 06/24/18 06:05 Ur Phencyclidine Scrn Presumptive negative 06/24/18 06:05 Ur Amphetamines Screen Presumptive negative 06/24/18 06:05 U Benzodiazepines Scrn Presumptive negative 06/24/18 06:05 Urine Cocaine Screen Presumptive negative 06/24/18 06:05 U Marijuana (THC) Screen Presumptive negative 06/24/18 06:05 Drugs of Abuse Note Disclamer 06/24/18 06:05 Plasma/Serum Alcohol < 0.01 % (0-0.07) 06/24/18 06:05 Active Medications - Current Medications Current Medications: Generic Name Dose Route Start Last Admin Trade Name Freq PRN Reason Stop Dose Admin Acetaminophen 650 mg 06/24/18 08:27 Tylenol PO Q4H PRN Pain, Mild (1-3) Lipase/Protease/Amylase 1 each 06/25/18 12:[address] 10,500 Unit FEEDTUBE PRN PRN For Clogged Feeding Tube Atorvastatin Calcium 40 mg 06/24/18 22:00 06/24/18 22:15 Lipitor PO Not Given QHS [facility] Bisacodyl 10 mg 06/24/18 08:27 Dulcolax MO QDAY PRN Constipation Dextrose 50 ml 06/24/18 08:29 D50w (25gm) Syringe IV PRN PRN Hypoglycemia Furosemide 40 mg 06/25/18 10:00 06/25/18 14:46 Lasix PO 40 mg QDAY MICHEL Administration Gabapentin 300 mg 06/25/18 10:00 06/25/18 14:47 Neurontin PO 300 mg BID [facility] Administration Sodium Chloride 1,000 mls @ 100 mls/hr 06/24/18 09:00 Nacl 0.9% 1000 Ml IV DIRECT MICHEL Levetiracetam 750 mg/ Sodium 107.5 mls @ 400 mls/hr 06/24/18 11:00 06/25/18 14:44 Chloride IV 400 mls/hr Q12HR MICHEL Administration Insulin Human Lispro 0 unit 06/24/18 11:30 06/25/18 11:30 Humalog SUB-Q Not Given ACHS [facility] Protocol Losartan Potassium 25 mg 06/25/18 10:00 06/25/18 14:46 Cozaar PO 25 mg QDAY [facility] Administration Magnesium Hydroxide 30 ml 06/24/18 08:27 Milk Of Magnesia PO Q4H PRN Constipation Metoclopramide HCl 10 mg 06/24/18 08:27 Reglan PO Q6H PRN Nausea And Vomiting Metoprolol Tartrate 25 mg 06/25/18 10:00 06/25/18 14:46 Lopressor PO 25 mg BID [facility] Administration Ondansetron HCl 4 mg 06/24/18 08:27 Zofran IV Q8H PRN Nausea And Vomiting Pantoprazole Sodium 20 mg 06/25/18 10:00 06/25/18 14:47 Protonix PO 20 mg QDAY [facility] Administration Promethazine HCl 25 mg 06/24/18 08:27 Phenergan MO Q6H PRN Nausea And Vomiting Simple Syrup 15 ml 06/25/18 12:55 Simple Syrup FEEDTUBE PRN PRN Hypoglycemia Simple Syrup 30 ml 06/25/18 12:55 Simple Syrup FEEDTUBE PRN PRN Hypoglycemia Sodium Bicarbonate 325 mg 06/25/18 12:55 Sodium Bicarbonate FEEDTUBE PRN PRN For Clogged Feeding Tube Sodium Chloride 10 ml 06/24/18 08:27 Sodium Chloride Flush Syringe 10 Ml IV PRN PRN LINE FLUSH Spironolactone 25 mg 06/25/18 10:00 06/25/18 14:45 Aldactone PO 25 mg QDAY [facility] Administration Warfarin Sodium 5 mg 06/25/18 17:00 Coumadin PO DAILY@1700 [facility] Nutrition/Malnutrition Assess - Dietary Evaluation Nutrition/Malnutrition Findings: Nutrition Notes Start: 06/25/18 1 2:40 Freq: Status: Active Protocol: Document 06/25/18 12:40 RM (Rec: 06/25/18 12:55 RM [id number]) Nutrition Notes Need for Assessment generated from: MD Order Initial or Follow up Assessment Current Diagnosis Coronary Artery Disease, Diabetes,Hypertension, Hyperlipidemia Other Pertinent Diagnosis Hx prostate cancer, AMS Current Diet No diet ordered Labs/Tests Reviewed Pertinent Medications Reviewed Height 5 ft 8 in Weight 72.575 kg [place] Body Weight (kg) 70.00 BMI 24.3 Subjective/Other Information Consulted for TF recommendation. MD ordering CVA work up per Hx and physical. ST unable to wake pt for swallow evaluation per missed treatment note . NG tube in place. Burn Absent Trauma Absent #1 Nutrition Diagnosis Inadequate oral intake Etiology AMS, possible CVA As Evidenced by Signs and Symptoms no diet ordered Is patient on ventilator? No Is Patient Ambulatory and/or Out of Bed No REE-([facility]-confined to bed) 3540.817 Calculation Used for Recommendations [facility] Additional Notes Protein Needs: 73-87g (1-1.2g/ kg) Fluid Needs: 1 ml/kcal Nutrition Intervention Nutrition Support: Glucerna 1.2 at 60 ml/hr. Water flush of 100 mls q 4 hrs . Kcal 1,728 Protein (gm) 86 Fluid (mL) 1,159 Goal #1 TF tolerance Goal #2 Meet at least 75% of calorie and protein needs via TF Anticipated Discharge Needs: Unable to determine at this time Follow-Up By: 06/29/18 Additional Comments Follow for new TF
[2018-06-25] MEDS: COUMADIN PO SCH (16:59)
[2018-06-25] MEDS ORDERED: COUMADIN PO SCH (17:00)
[2018-06-26 05:29] LABS: Basophils # (Auto) 0.1 K/mm3 (0.0-0.1); Basophils % (Auto) 0.9 % (0.0-1.8); Eosinophils # (Auto) 0.1 K/mm3 (0.0-0.4); Eosinophils % (Auto) 1.1 % (0.0-4.3); Hematocrit 38.3 % (35.5-45.6); Hemoglobin 12.5 gm/dl (11.8-15.2); Lymphocytes # (Auto) 1.6 K/mm3 (1.2-5.4); Lymphocytes % (Auto) 15.1 % (13.4-35.0); Mean Corpuscular HGB Conc 33 % (32-34); Mean Corpuscular Volume 93 fl (84-94); Monocytes # (Auto) 1.4 K/mm3 (0.0-0.8); Monocytes % (Auto) 12.6 % (0.0-7.3); Platelet Count 181 K/mm3 (140-440); Red Blood Count 4.14 M/mm3 (3.65-5.03); Red Cell Distribution Width 14.3 % (13.2-15.2)
[2018-06-26 05:39] LABS: INR 1.7 (0.87-1.13)
[2018-06-26 05:48] LABS: Calcium 9.7 mg/dL (8.4-10.2)
--- NOTE | 2018-06-26 08:44 | Progress Note ---
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 DVT prophylaxis -SCD and now Disposition - continue MICU care Prognosis; poor. History Interval history: Patient was seen and evaluated this morning, patient was still confused. Had episode of fever 100.4. Patient is lethargic. Hospitalist Physical - Physical exam Narrative exam: Patient is confused, lethargic. The patient appeared well nourished and normally developed. Vital signs as documented. Head exam is unremarkable. No scleral icterus . Neck is without jugular venous distension, thyromegaly, or carotid bruits. Lungs are clear to auscultation. Cardiac exam reveals regular rate and Rhythm. Abdominal exam reveals normal bowel sounds. Extremities are nonedematous and both femoral and pedal pulses are normal. 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 - Constitutional Vitals: Temp Pulse Resp BP Pulse Ox 100.4 F H 90 33 H 160/85 96 06/26/18 04:00 06/26/18 03:00 06/26/18 04:00 06/26/18 03:00 06/26/18 04:00 Results - Labs CBC & Chem 7: 06/26/18 04:57 06/26/18 04:57 Labs: Laboratory Last Values WBC 10.8 K/mm3 (4.5-11.0) 06/26/18 04:57 RBC 4.14 M/mm3 (3.65-5.03) 06/26/18 04:57 Hgb 12.5 gm/dl (11.8-15.2) 06/26/18 04:57 Hct 38.3 % (35.5-45.6) 06/26/18 04:57 MCV 93 fl (84-94) 06/26/18 04:57 MCH 30 pg (28-32) 06/26/18 04:57 MCHC 33 % (32-34) 06/26/18 04:57 RDW 14.3 % (13.2-15.2) 06/26/18 04:57 Plt Count 181 K/mm3 (140-440) 06/26/18 04:57 Lymph % (Auto) 15.1 % (13.4-35.0) 06/26/18 04:57 [place] % (Auto) 12.6 % (0.0-7.3) H 06/26/18 04:57 Eos % (Auto) 1.1 % (0.0-4.3) 06/26/18 04:57 Baso % (Auto) 0.9 % (0.0-1.8) 06/26/18 04:57 Lymph # 1.6 K/mm3 (1.2-5.4) 06/26/18 04:57 [place] # 1.4 K/mm3 (0.0-0.8) H 06/26/18 04:57 Eos # 0.1 K/mm3 (0.0-0.4) 06/26/18 04:57 Baso # 0.1 K/mm3 (0.0-0.1) 06/26/18 04:57 Seg Neutrophils % 70.3 % (40.0-70.0) H 06/26/18 04:57 Seg Neutrophils # 7.6 K/mm3 (1.8-7.7) 06/26/18 04:57 PT 21.1 Sec. (12.2-14.9) H 06/26/18 04:57 INR 1.70 (0.87-1.13) H 06/26/18 04:57 Sodium 148 mmol/L (137-145) H 06/26/18 04:57 Potassium 4.4 mmol/L (3.6-5.0) 06/26/18 04:57 Chloride 111.9 mmol/L (98-107) H 06/26/18 04:57 Carbon Dioxide 21 mmol/L (22-30) L 06/26/18 04:57 Anion Gap 20 mmol/L 06/26/18 04:57 BUN 32 mg/dL (9-20) H 06/26/18 04:57 Creatinine 1.5 mg/dL (0.8-1.5) 06/26/18 04:57 Estimated GFR 56 ml/min 06/26/18 04:57 BUN/Creatinine Ratio 21 % 06/26/18 04:57 Glucose 249 mg/dL (75-100) H 06/26/18 04:57 POC Glucose 187 (70-105) H 06/25/18 21:07 Lactic Acid 1.60 mmol/L (0.7-2.0) 06/24/18 11:25 Calcium 9.7 mg/dL (8.4-10.2) 06/26/18 04:57 Total Bilirubin 0.90 mg/dL (0.1-1.2) 06/24/18 06:05 AST 67 units/L (5-40) H 06/24/18 06:05 ALT 18 units/L (7-56) 06/24/18 06:05 Alkaline Phosphatase 82 units/L (35-129) 06/24/18 06:05 Ammonia 53.0 umol/L (25-60) 06/24/18 19:42 Total Creatine Kinase 1644 units/L (55-170) H 06/25/18 07:49 Troponin T 0.071 ng/mL (0.00-0.029) H D 06/25/18 07:49 Total Protein 7.6 g/dL (6.3-8.2) 06/24/18 06:05 Albumin 3.7 g/dL (3.9-5) L 06/24/18 06:05 Albumin/Globulin Ratio 0.9 % 06/24/18 06:05 Triglycerides 81 mg/dL (2-149) 06/24/18 06:05 Cholesterol 142 mg/dL (50-199) 06/24/18 06:05 LDL Cholesterol Direct 75 mg/dL (50-130) 06/24/18 06:05 HDL Cholesterol 63 mg/dL (40-59) H 06/24/18 06:05 Cholesterol/HDL Ratio 2.25 % 06/24/18 06:05 Vitamin B12 653.2 pg/mL (211-911) 06/24/18 19:42 TSH 2.270 mlU/mL (0.270-4.200) 06/24/18 19:42 Urine Color Yellow (Yellow) 06/24/18 06:05 Urine Turbidity Clear (Clear) 06/24/18 06:05 Urine pH 5.0 (5.0-7.0) 06/24/18 06:05 Ur Specific [place] 1.023 (1.003-1.030) 06/24/18 06:05 Urine Protein 100 mg/dl mg/dL (Negative) 06/24/18 06:05 Urine Glucose (UA) Neg mg/dL (Negative) 06/24/18 06:05 Urine Ketones Tr mg/dL (Negative) 06/24/18 06:05 Urine Blood Lg (Negative) 06/24/18 06:05 Urine Nitrite Neg (Negative) 06/24/18 06:05 Urine Bilirubin Neg (Negative) 06/24/18 06:05 Urine Urobilinogen 2.0 mg/dL (<2.0) 06/24/18 06:05 Ur Leukocyte Esterase Neg (Negative) 06/24/18 06:05 Urine WBC (Auto) 1.0 /HPF (0.0-6.0) 06/24/18 06:05 Urine RBC (Auto) 12.0 /HPF (0.0-6.0) 06/24/18 06:05 Urine Bacteria (Auto) 1+ /HPF (Negative) 06/24/18 06:05 Urine Mucus Few /HPF 06/24/18 06:05 Urine Opiates Screen Presumptive negative 06/24/18 06:05 Urine Methadone Screen Presumptive negative 06/24/18 06:05 Ur Barbiturates Screen Presumptive negative 06/24/18 06:05 Ur Phencyclidine Scrn Presumptive negative 06/24/18 06:05 Ur Amphetamines Screen Presumptive negative 06/24/18 06:05 U Benzodiazepines Scrn Presumptive negative 06/24/18 06:05 Urine Cocaine Screen Presumptive negative 06/24/18 06:05 U Marijuana (THC) Screen Presumptive negative 06/24/18 06:05 Drugs of Abuse Note Disclamer 06/24/18 06:05 Plasma/Serum Alcohol < 0.01 % (0-0.07) 06/24/18 06:05 Active Medications - Current Medications Current Medications: Generic Name Dose Route Start Last Admin Trade Name Freq PRN Reason Stop Dose Admin Acetaminophen 650 mg 06/24/18 08:27 Tylenol PO Q4H PRN Pain, Mild (1-3) Lipase/Protease/Amylase 1 each 06/25/18 12:55 Pancreaze 10,500 Unit FEEDTUBE PRN PRN For Clogged Feeding Tube Atorvastatin Calcium 40 mg 06/24/18 22:00 06/25/18 22:42 Lipitor PO 40 mg QHS MICHEL Administration Bisacodyl 10 mg 06/24/18 08:27 Dulcolax MD QDAY PRN Constipation Dextrose 50 ml 06/24/18 08:29 D50w (25gm) Syringe IV PRN PRN Hypoglycemia Furosemide 40 mg 06/25/18 10:00 06/25/18 14:46 Lasix PO 40 mg QDAY MICHEL Administration Gabapentin 300 mg 06/25/18 10:00 06/25/18 22:42 Neurontin PO 300 mg BID MICHEL Administration Sodium Chloride 1,000 mls @ 100 mls/hr 06/24/18 09:00 Nacl 0.9% 1000 Ml IV DIRECT MICHEL Levetiracetam 750 mg/ Sodium 107.5 mls @ 400 mls/hr 06/24/18 11:00 06/25/18 22:41 Chloride IV 06/26/18 23:59 400 mls/hr Q12HR MICHEL Administration Levofloxacin/Dextrose 750 mg in 150 mls @ 100 mls/hr 06/26/18 10:00 Levaquin 750mg/150ml IV Q24HR [facility] Protocol Insulin Human Lispro 0 unit 06/24/18 11:30 06/25/18 17:03 Humalog SUB-Q 3 unit ACHS MICHEL Administration Protocol Levetiracetam 750 mg 06/27/18 10:00 Keppra PO BID MICHEL Losartan Potassium 25 mg 06/25/18 10:00 06/25/18 14:46 Cozaar PO 25 mg QDAY MICHEL Administration Magnesium Hydroxide 30 ml 06/24/18 08:27 Milk Of Magnesia PO Q4H PRN Constipation Metoclopramide HCl 10 mg 06/24/18 08:27 Reglan PO Q6H PRN Nausea And Vomiting Metoprolol Tartrate 25 mg 06/25/18 10:00 06/25/18 22:43 Lopressor PO 25 mg BID MICHEL Administration Ondansetron HCl 4 mg 06/24/18 08:27 Zofran IV Q8H PRN Nausea And Vomiting Pantoprazole Sodium 20 mg 06/25/18 10:00 06/25/18 14:47 Protonix PO 20 mg QDAY MICHEL Administration Promethazine HCl 25 mg 06/24/18 08:27 Phenergan MD Q6H PRN Nausea And Vomiting Simple Syrup 15 ml 06/25/18 12:55 Simple Syrup FEEDTUBE PRN PRN Hypoglycemia Simple Syrup 30 ml 06/25/18 12:55 Simple Syrup FEEDTUBE PRN PRN Hypoglycemia Sodium Bicarbonate 325 mg 06/25/18 12:55 Sodium Bicarbonate FEEDTUBE PRN PRN For Clogged Feeding Tube Sodium Chloride 10 ml 06/24/18 08:27 Sodium Chloride Flush Syringe 10 Ml IV PRN PRN LINE FLUSH Spironolactone 25 mg 06/25/18 10:00 06/25/18 14:45 Aldactone PO 25 mg QDAY MICHEL Administration Warfarin Sodium 5 mg 06/25/18 17:00 06/25/18 16:59 Coumadin PO 5 mg DAILY@1700 MICHEL Administration Nutrition/Malnutrition Assess - Dietary Evaluation Nutrition/Malnutrition Findings: Nutrition Notes Start: 06/25/18 12:40 Freq: Status: Active Protocol: Document 06/25/18 12:40 RM (Rec: 06/25/18 12:55 RM [id number]) Nutrition Notes Need for Assessment generated from: MD Order Initial or Follow up Assessment Current Diagnosis Coronary Artery Disease, Diabetes,Hypertension, Hyperlipidemia Other Pertinent Diagnosis Hx prostate cancer, AMS Current Diet No diet ordered Labs/Tests Reviewed Pertinent Medications Reviewed Height 5 ft 8 in Weight 72.575 kg [place] Body Weight (kg) 70.00 BMI 24.3 Subjective/Other Information Consulted for TF recommendation. MD ordering CVA work up per Hx and physical. ST unable to wake pt for swallow evaluation per missed treatment note . NG tube in place. Burn Absent Trauma Absent #1 Nutrition Diagnosis Inadequate oral intake Etiology AMS, possible CVA As Evidenced by Signs and Symptoms no diet ordered Is patient on ventilator? No Is Patient Ambulatory and/or Out of Bed No REE-([facility]-confined to bed) 3469.226 Calculation Used for Recommendations [facility] Additional Notes Protein Needs: 73-87g (1-1.2g/ kg) Fluid Needs: 1 ml/kcal Nutrition Intervention Nutrition Support: Glucerna 1.2 at 60 ml/hr. Water flush of 100 mls q 4 hrs . Kcal 1,728 Protein (gm) 86 Fluid (mL) 1,159 Goal #1 TF tolerance Goal #2 Meet at least 75% of calorie and protein needs via TF Anticipated Discharge Needs: Unable to determine at this time Follow-Up By: 06/29/18 Additional Comments Follow for new TF
[2018-06-26] MEDS: HumaLOG SUB-Q SCH ×5 (09:10→17:09)
[2018-06-26] MEDS: NEURONTIN PO SCH ×2 (09:12→22:08)
[2018-06-26] MEDS: ALDACTONE PO SCH (09:12)
[2018-06-26] MEDS: KEPPRA 750 MG in NACL 0.9% 100 ML IV SCH ×2 (09:12→22:16)
[2018-06-26] MEDS: COZAAR PO SCH (09:13)
[2018-06-26] MEDS: LOPRESSOR PO SCH ×2 (09:13→22:09)
[2018-06-26] MEDS: PROTONIX PO SCH (09:13)
--- NOTE | 2018-06-26 09:24 | XRay Report ---
PORTABLE CHEST INDICATION: Fever. COMPARISON: 06/24/2018 FINDINGS: Portable, frontal chest radiograph demonstrates new Dobbhoff tube, turned upon itself in the stomach with its tip directed back at the GE junction. Stable post CABG changes and slightly crowded lung markings centrally. No pleural effusions or CHF. Slight exaggerated cardiomediastinal silhouette. EKG leads. Demineralized bones. CONCLUSION: No acute significant chest process with few other findings, as above. Thank you for the opportunity to participate in this patient's care.
[2018-06-26] MEDS ORDERED: LEVAQUIN 750MG/150ML 750 MG/150 ML BAG IV SCH (10:00)
[2018-06-26] MEDS: LEVAQUIN 750MG/150ML 750 MG/150 ML BAG IV SCH (11:08)
[2018-06-26] MEDS: LASIX PO SCH (11:09)
[2018-06-26] MEDS: TYLENOL PO PRN (11:21)
--- NOTE | 2018-06-26 12:49 | Consultation ---
History of Present Illness Consult date: 06/26/18 Consult reason: elevated troponin History of present illness: Patient is a 72 year old male who was brought in 06/24 after he was found down with altered mental status. Neurology evaluation and workup is in process. A cardiac consultation was requested for mild elevation of troponin. History is unobtainable. Patient is non-verbal. Review of records shows his has an extensive cardiac history. He has coronary artery disease with 3 vessel bypass grafting done in 1999. A cardiac catheterization July of 2013 reports patent grafts. Ejection fraction 50-55% by echocardiogram done a year and a half ago. He also has permanent atrial fibrillation and takes warfarin for oral anticoagulation therapy. INR 1.76 on presentation. An ECG shows atrial fibrillation with LVH. Ventricular rate is well controlled. Past History Past Medical History: atrial fib, diabetes, hypertension, hyperlipidemia Past Surgical History: CABG Social history: smoking (smokes cigarretes but son was not sure how many), full code. denies: alcohol abuse, prescription drug abuse, IV drug use Family history: no significant family history Medications and Allergies Allergies Allergy/AdvReac Type Severity Reaction Status Date / Time nitroglycerin Allergy Severe Unknown Verified 01/16/16 17:45 Home Medications Medication Instructions Recorded Confirmed Last Taken Type Insulin Aspart Prot/Aspart(Nf) 25 unit SQ QAM 07/09/13 06/26/18 06/19/18 09:00 History [NovoLOG Mix 70/30 VIAL] Metformin HCl [Metformin] 1,000 mg PO BID 07/09/13 06/26/18 06/19/18 09:00 History Metoprolol Tartrate 25 mg PO BID 07/09/13 06/26/18 06/19/18 09:00 History Omeprazole 20 mg PO DAILY 07/09/13 06/26/18 06/19/18 09:00 History Furosemide [Lasix TAB] 40 mg PO QDAY #30 tablet 07/18/14 06/26/18 06/19/18 09:00 Rx Gabapentin [Neurontin] 300 mg PO BID capsule 07/18/14 06/26/18 06/19/18 09:00 Rx Losartan [Cozaar] 25 mg PO QDAY #30 tablet 07/18/14 06/26/18 06/19/18 09:00 Rx Spironolactone [Aldactone] 25 mg PO QDAY #30 tablet 07/18/14 06/26/18 06/19/18 09:00 Rx Warfarin [Coumadin] 5 mg PO DAILY@1700 tablet 07/18/14 06/26/18 06/19/18 09:00 Rx Ergocalciferol [Vitamin D2] 1 cap PO QWEEK 01/17/16 06/26/18 06/19/18 08:00 History Ipratropium/Albuter (Nf) 2 puff IH QID PRN 01/17/16 06/26/18 06/19/18 09:00 History [Combivent Inhaler] glipiZIDE [Glucotrol] 5 mg PO QDAY 01/17/16 06/26/18 06/19/18 09:00 History Active Meds: Active Medications Acetaminophen (Tylenol) 650 mg PO Q4H PRN PRN Reason: Pain, Mild (1-3) Last Admin: 06/26/18 11:21 Dose: 650 mg Documented by: Lipase/Protease/Amylase (Eh [place] 10,500 Unit) 1 each FEEDTUBE PRN PRN PRN Reason: For Clogged Feeding Tube Atorvastatin Calcium (Lipitor) 40 mg PO QHS [facility] Last Admin: 06/25/18 22:42 Dose: 40 mg Documented by: Bisacodyl (Dulcolax) 10 mg MD QDAY PRN PRN Reason: Constipation Dextrose (D50w (25gm) Syringe) 50 ml IV PRN PRN PRN Reason: Hypoglycemia Furosemide (Lasix) 40 mg PO QDAY [facility] Last Admin: 06/26/18 11:09 Dose: 40 mg Documented by: Gabapentin (Neurontin) 300 mg PO BID [facility] Last Admin: 06/26/18 09:12 Dose: 300 mg Documented by: Sodium Chloride (Nacl 0.9% 1000 Ml) 1,000 mls @ 100 mls/hr IV DIRECT MICHEL Levetiracetam 750 mg/ Sodium (Chloride) 107.5 mls @ 400 mls/hr IV Q12HR [facility] Stop: 06/26/18 23:59 Last Admin: 06/26/18 09:12 Dose: 400 mls/hr Documented by: Levofloxacin/Dextrose (Levaquin 750mg/150ml) 750 mg in 150 mls @ 100 mls/hr IV Q48H MICHEL; Protocol Last Admin: 06/26/18 11:08 Dose: 100 mls/hr Documented by: Insulin Human Lispro (Humalog) 0 unit SUB-Q ACHS [facility]; Protocol Last Admin: 06/26/18 09:14 Dose: Not Given Documented by: Levetiracetam (Keppra) 750 mg PO BID [facility] Losartan Potassium (Cozaar) 25 mg PO QDAY [facility] Last Admin: 06/26/18 09:13 Dose: 25 mg Documented by: Magnesium Hydroxide (Milk Of Magnesia) 30 ml PO Q4H PRN PRN Reason: Constipation Metoclopramide HCl (Reglan) 10 mg PO Q6H PRN PRN Reason: Nausea And Vomiting Metoprolol Tartrate (Lopressor) 25 mg PO BID [facility] Last Admin: 06/26/18 09:13 Dose: 25 mg Documented by: Ondansetron HCl (Zofran) 4 mg IV Q8H PRN PRN Reason: Nausea And Vomiting Pantoprazole Sodium (Protonix) 20 mg PO QDAY [facility] Last Admin: 06/26/18 09:13 Dose: 20 mg Documented by: Promethazine HCl (Phenergan) 25 mg MD Q6H PRN PRN Reason: Nausea And Vomiting Simple Syrup (Simple Syrup) 15 ml FEEDTUBE PRN PRN PRN Reason: Hypoglycemia Simple Syrup (Simple Syrup) 30 ml FEEDTUBE PRN PRN PRN Reason: Hypoglycemia Sodium Bicarbonate (Sodium Bicarbonate) 325 mg FEEDTUBE PRN PRN PRN Reason: For Clogged Feeding Tube Sodium Chloride (Sodium Chloride Flush Syringe 10 Ml) 10 ml IV PRN PRN PRN Reason: LINE FLUSH Spironolactone (Aldactone) 25 mg PO QDAY [facility] Last Admin: 06/26/18 09:12 Dose: 25 mg Documented by: Warfarin Sodium (Coumadin) 5 mg PO DAILY@1700 [facility] Last Admin: 06/25/18 16:59 Dose: 5 mg Documented by: Physical Examination Vital Signs Temp Pulse Resp BP Pulse Ox 98.9 F 105 H 20 166/83 100 06/24/18 06:13 06/24/18 06:13 06/24/18 06:13 06/24/18 06:13 06/24/18 06:13 General appearance: no acute distress Cardiac: Positive: irregularly irregular Results 06/26/18 04:57 06/26/18 04:57 Coagulation 06/26/18 Range/Units 04:57 PT 21.1 H (12.2-14.9) Sec. INR 1.70 H (0.87-1.13) CBC 06/26/18 Range/Units 04:57 WBC 10.8 (4.5-11.0) K/mm3 RBC 4.14 (3.65-5.03) M/mm3 Hgb 12.5 (11.8-15.2) gm/dl Hct 38.3 (35.5-45.6) % Plt Count 181 (140-440) K/mm3 Lymph # 1.6 (1.2-5.4) K/mm3 [place] # 1.4 H (0.0-0.8) K/mm3 Eos # 0.1 (0.0-0.4) K/mm3 Baso # 0.1 (0.0-0.1) K/mm3 Comprehensive Metabolic Panel 06/26/18 Range/Units 04:57 Sodium 148 H (137-145) mmol/L Potassium 4.4 (3.6-5.0) mmol/L Chloride 111.9 H (98-107) mmol/L Carbon Dioxide 21 L (22-30) mmol/L BUN 32 H (9-20) mg/dL Creatinine 1.5 (0.8-1.5) mg/dL Glucose 249 H (75-100) mg/dL Calcium 9.7 (8.4-10.2) mg/dL Assessment and Plan Acute encephalopathy Lactic acidosis Hypertension Diabetes Hx of CAD with 3v CABG in 1999 [facility] 2013 reports all grafts patent EF 50-55% by echocardiogram this admission Permanent afib, rate control on warfarin as an outpatient. INR 1.76 on presentation
--- NOTE | 2018-06-26 14:54 | Magnetic Resonance Report ---
PROCEDURE: MR BRAIN WO CON HISTORY: stroke FINDINGS: MRI of the brain was performed using sagittal T1, axial diffusion, axial T2, axial FLAIR, a xial T1, sagittal T1 and coronal FLAIR images. Images are limited by patient motion. These images demonstrate an acute right posterior-superior frontal lobe white matter lacunar infarct, 0.4 cm, B1000 diffusion image 26. No transcortical infarct is seen. There is a small old right posterior-inferior parietal infarct, T2-weighted images 12-13 approximatel y 1.8 cm. There are normal flow voids in the vertebral arteries, basilar artery and both internal carotid arter ies. The mastoid air cells and middle ears appear clear. There is no evidence of acute sinusitis. IMPRESSION: Acute right posterior-superior frontal lobe white matter lacunar infarct This document is electronically signed by Estrada Schwartz MD., June 26 2018 02:51:48 PM ET
--- NOTE | 2018-06-26 14:57 | Magnetic Resonance Report ---
PROCEDURE: MR MRA/MRV HEAD WO CON HISTORY: stroke FINDINGS: MRA of the brain was performed using [id number] angiography. Data was reformatted into multiple projections. The examination is severely limited by patient motion and is below diagnostic quality. The basilar ar caridad is patent. The left posterior cerebral artery is seen proximally but is not seen distally. The r ight posterior cerebral artery appears to be perfused from the anterior circulation. The right bus trolley and taxi instructor ior cerebral artery is seen proximally but is not seen distally and may be occluded. In the anterior circulation the internal carotid arteries are patent. There is a moderate stenosis of the proximal M1 segment of the left middle cerebral artery. There brianna ears to be a moderate stenosis of the junction of the M1 and M2 segments of the left middle cerebral artery. The M3 segment is not seen and may be very small or occluded. The right middle cerebral artery is patent proximally. There is a moderate to high-grade stenosis of the junction of the M1 and M2 segments. The distal right middle cerebral artery is not seen and may b e occluded. The anterior cerebral arteries are not well seen. Both anterior cerebral arteries appear patent but h ighly atherosclerotic IMPRESSION: The examination is below diagnostic quality due to patient motion. Significant stenoses a re suspected in both posterior cerebral arteries, both middle cerebral arteries and both anterior cer ebral arteries This document is electronically signed by Estrada Schwartz MD., June 26 2018 02:55:14 PM ET
[2018-06-26] MEDS: COUMADIN PO SCH (17:13)
[2018-06-27] MEDS: HumaLOG SUB-Q SCH ×5 (00:34→21:39)
[2018-06-27] MEDS ORDERED: APRESOLINE IV PRN ×2 (04:13→08:09)
[2018-06-27 05:21] LABS: Basophils # (Auto) 0.1 K/mm3 (0.0-0.1); Basophils % (Auto) 0.8 % (0.0-1.8); Eosinophils # (Auto) 0.3 K/mm3 (0.0-0.4); Eosinophils % (Auto) 2.3 % (0.0-4.3); Hematocrit 41.3 % (35.5-45.6); Hemoglobin 13.6 gm/dl (11.8-15.2); Lymphocytes # (Auto) 2.1 K/mm3 (1.2-5.4); Mean Corpuscular HGB Conc 33 % (32-34); Mean Corpuscular Volume 91 fl (84-94); Monocytes # (Auto) 1.5 K/mm3 (0.0-0.8); Monocytes % (Auto) 12.4 % (0.0-7.3); Platelet Count 193 K/mm3 (140-440); Red Blood Count 4.53 M/mm3 (3.65-5.03); Red Cell Distribution Width 14.2 % (13.2-15.2)
[2018-06-27 05:43] LABS: Albumin 3.1 g/dL (3.9-5); Calcium 10.2 mg/dL (8.4-10.2)
[2018-06-27 05:58] LABS: INR 1.65 (0.87-1.13)
[2018-06-27] MEDS ORDERED: LANTUS SUB-Q ONE (09:00)
[2018-06-27] MEDS: PROTONIX PO SCH (09:25)
[2018-06-27] MEDS: KEPPRA PO SCH ×2 (09:25→21:40)
[2018-06-27] MEDS: LOPRESSOR PO SCH ×2 (09:26→21:41)
[2018-06-27] MEDS: COZAAR PO SCH (09:26)
[2018-06-27] MEDS: LASIX PO SCH (09:26)
[2018-06-27] MEDS: NEURONTIN PO SCH ×2 (09:26→21:40)
[2018-06-27] MEDS: ASPIRIN PO SCH (09:26)
[2018-06-27] MEDS: ALDACTONE PO SCH (09:27)
--- NOTE | 2018-06-27 11:45 | Progress Note ---
Assessment and Plan - Patient Problems (1) Atrial fibrillation Current Visit: Yes Status: Acute Plan to address problem: Rate control strategy of atrial fibrillation, conservative cardiac management. (2) Coronary artery disease Current Visit: Yes Status: Acute Plan to address problem: Medical therapy as outlined for coronary artery disease, conservative cardiac management. Subjective Date of service: 06/27/18 Interval history: Patient is chronically ill-appearing, has an NG feeding tube, appears lethargic and somnolent. On telemetry, there is atrial fibrillation with a well- controlled ventricular rate. Objective Vital Signs Temp Pulse Pulse Resp BP Pulse Ox 06/27/18 09:27 108 H 182/79 06/27/18 09:26 87 182/79 06/27/18 08:21 97 H 25 H 172/90 99 06/27/18 08:19 99.4 F 06/27/18 08:11 104 H 28 H 172/90 99 06/27/18 08:00 115 H 22 172/90 99 06/27/18 07:51 101 H 33 H 167/92 99 06/27/18 07:41 107 H 33 H 167/92 99 06/27/18 07:31 115 H 36 H 167/92 99 06/27/18 07:21 108 H 33 H 167/92 98 06/27/18 07:11 116 H 25 H 167/92 99 06/27/18 07:01 91 H 35 H 167/92 99 06/27/18 06:51 109 H 26 H 160/85 99 06/27/18 06:41 108 H 27 H 160/85 98 06/27/18 06:31 102 H 22 160/85 99 06/27/18 06:20 97 H 27 H 160/85 99 06/27/18 06:11 108 H 20 160/85 99 06/27/18 06:00 100 H 38 H 160/85 99 06/27/18 05:51 100 H 25 H 160/95 99 06/27/18 05:41 93 H 33 H 160/95 100 06/27/18 05:31 87 28 H 160/95 99 06/27/18 05:21 94 H 28 H 160/95 99 06/27/18 05:11 96 H 31 H 160/95 100 06/27/18 05:01 93 H 20 160/95 100 06/27/18 04:25 93 H 169/102 04/27/19 04:00 98.4 F 86 102 H 34 H 169/102 99 06/27/18 03:00 72 19 170/87 98 06/27/18 02:00 81 25 H 155/96 98 06/27/18 01:00 84 27 H 155/96 99 06/27/18 00:07 77 25 H 156/91 99 06/27/18 00:00 98.1 F 80 88 18 156/91 100 06/26/18 23:51 73 24 171/83 98 06/26/18 23:41 67 25 H 173/86 100 06/26/18 23:31 75 26 H 173/86 98 06/26/18 23:21 67 22 173/86 99 06/26/18 23:11 76 26 H 171/83 100 06/26/18 23:00 62 18 171/83 100 06/26/18 22:51 73 23 163/81 100 06/26/18 22:41 76 22 163/81 100 06/26/18 22:31 84 25 H 163/81 98 06/26/18 22:21 81 27 H 163/81 97 06/26/18 22:11 78 25 H 173/86 98 06/26/18 22:09 88 173/86 06/26/18 22:01 80 30 H 173/86 98 06/26/18 21:51 77 28 H 163/81 98 06/26/18 21:41 74 22 163/81 98 06/26/18 21:31 75 22 163/81 98 06/26/18 21:21 79 20 163/81 98 06/26/18 21:11 79 23 163/81 97 06/26/18 21:01 73 20 163/81 98 06/26/18 20:51 80 22 172/86 98 06/26/18 20:41 82 23 172/86 98 06/26/18 20:31 81 30 H 172/86 97 06/26/18 20:21 83 30 H 172/86 98 06/26/18 20:11 81 26 H 172/86 97 06/26/18 20:01 86 20 178/92 99 06/26/18 20:00 99.1 F 20 98 06/26/18 19:50 87 21 178/92 97 06/26/18 19:00 82 22 169/83 99 04/26/19 18:00 74 23 163/83 97 06/26/18 17:00 73 21 166/85 97 06/26/18 16:00 98.4 F 81 22 165/87 99 06/26/18 15:00 75 21 161/80 98 06/26/18 14:00 76 28 H 150/77 97 06/26/18 13:00 83 33 H 145/86 96 06/26/18 12:01 75 30 H 158/76 98 06/26/18 12:00 98.9 F 20 94 - Physical Examination General: No Apparent Distress, Cachectic HEENT: Positive: PERRL Neck: Positive: neck supple Cardiac: Positive: irregularly irregular Lungs: Positive: Decreased Breath Sounds Neuro: Positive: Weakness Abdomen: Positive: Soft Skin: Positive: Clear Extremities: Absent: edema - Labs and Meds Cardiac Enzymes 06/27/18 Range/Units 04:47 AST 37 (5-40) units/L Coagulation 06/27/18 Range/Units 04:47 PT 20.6 H (12.2-14.9) Sec. INR 1.65 H (0.87-1.13) CBC 06/27/18 Range/Units 04:47 WBC 11.9 H (4.5-11.0) K/mm3 RBC 4.53 (3.65-5.03) M/mm3 Hgb 13.6 (11.8-15.2) gm/dl Hct 41.3 (35.5-45.6) % Plt Count 193 (140-440) K/mm3 Lymph # 2.1 (1.2-5.4) K/mm3 [place] # 1.5 H (0.0-0.8) K/mm3 Eos # 0.3 (0.0-0.4) K/mm3 Baso # 0.1 (0.0-0.1) K/mm3 Comprehensive Metabolic Panel 06/27/18 Range/Units 04:47 Sodium 146 H (137-145) mmol/L Potassium 3.9 (3.6-5.0) mmol/L Chloride 109.0 H (98-107) mmol/L Carbon Dioxide 23 (22-30) mmol/L BUN 32 H (9-20) mg/dL Creatinine 1.6 H (0.8-1.5) mg/dL Glucose 299 H (75-100) mg/dL Calcium 10.2 (8.4-10.2) mg/dL AST 37 (5-40) units/L ALT 22 (7-56) units/L Alkaline Phosphatase 95 (35-129) units/L Total Protein 7.3 (6.3-8.2) g/dL Albumin 3.1 L (3.9-5) g/dL
--- NOTE | 2018-06-27 12:36 | Progress Note ---
Subjective Date of service: 06/27/18 Interval history: patient seen and went over all labs and Xrays with the family patient is alert and only has mild weakness from small lacunar stroke.... advise nurses to try bedside swallowing evaluation since he refuses Dobbhoff and seems totally alert Objective - Vital Sign Vital Signs - 12hr 06/27/18 06/27/18 06/27/18 01:00 02:00 03:00 Temperature Pulse Rate 84 81 72 Pulse Rate [ From Monitor] Respiratory 27 H 25 H 19 Rate Blood Pressure 155/96 155/96 170/87 O2 Sat by Pulse 99 98 98 Oximetry 06/27/18 06/27/18 06/27/18 04:00 04:25 05:01 Temperature 98.4 F Pulse Rate 86 93 H 93 H Pulse Rate [ 102 H From Monitor] Respiratory 34 H 20 Rate Blood Pressure 169/102 169/102 160/95 O2 Sat by Pulse 99 100 Oximetry 06/27/18 06/27/18 06/27/18 05:11 05:21 05:31 Temperature Pulse Rate 96 H 94 H 87 Pulse Rate [ From Monitor] Respiratory 31 H 28 H 28 H Rate Blood Pressure 160/95 160/95 160/95 O2 Sat by Pulse 100 99 99 Oximetry 06/27/18 06/27/18 06/27/18 05:41 05:51 06:00 Temperature Pulse Rate 93 H 100 H 100 H Pulse Rate [ From Monitor] Respiratory 33 H 25 H 38 H Rate Blood Pressure 160/95 160/95 160/85 O2 Sat by Pulse 100 99 99 Oximetry 06/27/18 06/27/18 06/27/18 06:11 06:20 06:31 Temperature Pulse Rate 108 H 97 H 102 H Pulse Rate [ From Monitor] Respiratory 20 27 H 22 Rate Blood Pressure 160/85 160/85 160/85 O2 Sat by Pulse 99 99 99 Oximetry 06/27/18 06/27/18 06/27/18 06:41 06:51 07:01 Temperature Pulse Rate 108 H 109 H 91 H Pulse Rate [ From Monitor] Respiratory 27 H 26 H 35 H Rate Blood Pressure 160/85 160/85 167/92 O2 Sat by Pulse 98 99 99 Oximetry 06/27/18 06/27/18 06/27/18 07:11 07:21 07:31 Temperature Pulse Rate 116 H 108 H 115 H Pulse Rate [ From Monitor] Respiratory 25 H 33 H 36 H Rate Blood Pressure 167/92 167/92 167/92 O2 Sat by Pulse 99 98 99 Oximetry 06/27/18 06/27/18 06/27/18 07:41 07:51 08:00 Temperature Pulse Rate 107 H 101 H 115 H Pulse Rate [ From Monitor] Respiratory 33 H 33 H 22 Rate Blood Pressure 167/92 167/92 172/90 O2 Sat by Pulse 99 99 99 Oximetry 06/27/18 06/27/18 06/27/18 08:11 08:19 08:21 Temperature 99.4 F Pulse Rate 104 H 97 H Pulse Rate [ From Monitor] Respiratory 28 H 25 H Rate Blood Pressure 172/90 172/90 O2 Sat by Pulse 99 99 Oximetry 06/27/18 06/27/18 09:26 09:27 Temperature Pulse Rate 87 108 H Pulse Rate [ From Monitor] Respiratory Rate Blood Pressure 182/79 182/79 O2 Sat by Pulse Oximetry - Laboratory Findings CBC and BMP: 06/27/18 04:47 06/27/18 04:47 Abnormal Lab Findings: Abnormal Labs 06/24/18 06/24/18 06/24/18 06:05 06:15 06:23 WBC 12.8 H [place] % (Auto) 11.3 H Independence # 1.5 H Seg Neutrophils % 74.3 H Seg Neutrophils # 9.5 H PT INR Sodium Chloride Carbon Dioxide BUN 30 H Creatinine 1.6 H Glucose 150 H POC Glucose Lactic Acid 2.70 H* AST 67 H Total Creatine Kinase 2694 H Troponin T 0.056 H Albumin 3.7 L HDL Cholesterol 63 H 06/24/18 06/24/18 06/24/18 08:37 11:43 13:20 WBC [place] % (Auto) [place] # Seg Neutrophils % Seg Neutrophils # PT 21.7 H INR 1.76 H Sodium Chloride Carbon Dioxide BUN Creatinine Glucose POC Glucose 147 H Lactic Acid 2.10 H* AST Total Creatine Kinase Troponin T Albumin HDL Cholesterol 06/24/18 06/24/18 06/25/18 16:23 21:55 05:05 WBC [place] % (Auto) 12.0 H [place] # 1.2 H Seg Neutrophils % Seg Neutrophils # PT INR Sodium Chloride Carbon Dioxide BUN Creatinine Glucose POC Glucose 129 H 141 H Lactic Acid AST Total Creatine Kinase Troponin T Albumin HDL Cholesterol 06/25/18 06/25/18 06/25/18 05:05 07:49 07:54 WBC [place] % (Auto) [place] # Seg Neutrophils % Seg Neutrophils # PT INR Sodium Chloride 110.8 H Carbon Dioxide 19 L BUN 29 H Creatinine Glucose 163 H POC Glucose 168 H Lactic Acid AST Total Creatine Kinase 1644 H Troponin T 0.071 H D Albumin HDL Cholesterol 06/25/18 06/25/18 06/25/18 11:41 17:02 21:07 WBC [place] % (Auto) [place] # Seg Neutrophils % Seg Neutrophils # PT INR Sodium Chloride Carbon Dioxide BUN Creatinine Glucose POC Glucose 175 H 192 H 187 H Lactic Acid AST Total Creatine Kinase Troponin T Albumin HDL Cholesterol 06/26/18 06/26/18 06/26/18 04:57 04:57 04:57 WBC [place] % (Auto) 12.6 H [place] # 1.4 H Seg Neutrophils % 70.3 H Seg Neutrophils # PT 21.1 H INR 1.70 H Sodium 148 H Chloride 111.9 H Carbon Dioxide 21 L BUN 32 H Creatinine Glucose 249 H POC Glucose Lactic Acid AST Total Creatine Kinase Troponin T Albumin HDL Cholesterol 06/26/18 06/26/18 06/26/18 08:48 11:38 16:33 WBC [place] % (Auto) [place] # Seg Neutrophils % Seg Neutrophils # PT INR Sodium Chloride Carbon Dioxide BUN Creatinine Glucose POC Glucose 253 H 269 H 239 H Lactic Acid AST Total Creatine Kinase Troponin T Albumin HDL Cholesterol 06/26/18 06/27/18 06/27/18 22:13 04:47 04:47 WBC 11.9 H [place] % (Auto) 12.4 H [place] # 1.5 H Seg Neutrophils % Seg Neutrophils # 7.9 H PT 20.6 H INR 1.65 H Sodium Chloride Carbon Dioxide BUN Creatinine Glucose POC Glucose 166 H Lactic Acid AST Total Creatine Kinase Troponin T Albumin HDL Cholesterol 06/27/18 06/27/18 04:47 08:18 WBC [place] % (Auto) [place] # Seg Neutrophils % Seg Neutrophils # PT INR Sodium 146 H Chloride 109.0 H Carbon Dioxide BUN 32 H Creatinine 1.6 H Glucose 299 H POC Glucose 343 H Lactic Acid AST Total Creatine Kinase Troponin T Albumin 3.1 L HDL Cholesterol
--- NOTE | 2018-06-27 15:53 | Progress Note ---
Assessment and Plan Assessment and plan: Altered mental status, likely due to anoxic brain injury, Acute CVA - Patient was found lying in the floor, could be CVA versus seizure - carotid Dopplers, echo; unremarkable - MRI/MRA pending; showed right sided lacunar infarcts - Patient is on Keppra, atorvastatin and ASA -Patient is able to take care of his airways -neurology consult appreciated, EEG showed diffuse slowing, encephalopathy History of A. fib on Coumadin - continue coumadin Hypertension - Controlled Diabetes mellitus - Sliding-scale insulin, Accu-Chek, adjust his insulin as needed Rhabdomyolysis, lactic acidosis - Patient is on IV fluids - Resolved Elevated troponin level - cardiology consult appreciated SIRS - on levaquin renally dosed URBANO likely due to vasomotor nephropathy On NG tube feeding; will do bed side swallow evaluation and put him on diet DVT prophylaxis -SCD and now Disposition - continue MICU care Prognosis; poor. History Interval history: Patient was seen and evaluated this morning, patient was more alert this morning, he know his name. His speech was a little bit better Hospitalist Physical - Physical exam Narrative exam: Patient is confused, lethargic. The patient appeared well nourished and normally developed. Vital signs as documented. Head exam is unremarkable. No scleral icterus . Neck is without jugular venous distension, thyromegaly, or carotid bruits. Lungs are clear to auscultation. Cardiac exam reveals regular rate and Rhythm. Abdominal exam reveals normal bowel sounds. Extremities are nonedematous and both femoral and pedal pulses are normal. 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, but more alert than yesterday - Constitutional Vitals: Temp Pulse Resp BP Pulse Ox 99.3 F 108 H 25 H 182/79 99 06/27/18 12:00 06/27/18 09:27 06/27/18 08:21 06/27/18 09:27 06/27/18 08:21 General appearance: Present: no acute distress Results - Labs CBC & Chem 7: 06/27/18 04:47 06/27/18 04:47 Labs: Laboratory Last Values WBC 11.9 K/mm3 (4.5-11.0) H 06/27/18 04:47 RBC 4.53 M/mm3 (3.65-5.03) 06/27/18 04:47 Hgb 13.6 gm/dl (11.8-15.2) 06/27/18 04:47 Hct 41.3 % (35.5-45.6) 06/27/18 04:47 MCV 91 fl (84-94) 06/27/18 04:47 MCH 30 pg (28-32) 06/27/18 04:47 MCHC 33 % (32-34) 06/27/18 04:47 RDW 14.2 % (13.2-15.2) 06/27/18 04:47 Plt Count 193 K/mm3 (140-440) 06/27/18 04:47 Lymph % (Auto) 18.0 % (13.4-35.0) 06/27/18 04:47 [place] % (Auto) 12.4 % (0.0-7.3) H 06/27/18 04:47 Eos % (Auto) 2.3 % (0.0-4.3) 06/27/18 04:47 Baso % (Auto) 0.8 % (0.0-1.8) 06/27/18 04:47 Lymph # 2.1 K/mm3 (1.2-5.4) 06/27/18 04:47 [place] # 1.5 K/mm3 (0.0-0.8) H 06/27/18 04:47 Eos # 0.3 K/mm3 (0.0-0.4) 06/27/18 04:47 Baso # 0.1 K/mm3 (0.0-0.1) 06/27/18 04:47 Seg Neutrophils % 66.5 % (40.0-70.0) 06/27/18 04:47 Seg Neutrophils # 7.9 K/mm3 (1.8-7.7) H 06/27/18 04:47 PT 20.6 Sec. (12.2-14.9) H 06/27/18 04:47 INR 1.65 (0.87-1.13) H 06/27/18 04:47 Sodium 146 mmol/L (137-145) H 06/27/18 04:47 Potassium 3.9 mmol/L (3.6-5.0) 06/27/18 04:47 Chloride 109.0 mmol/L (98-107) H 06/27/18 04:47 Carbon Dioxide 23 mmol/L (22-30) 06/27/18 04:47 Anion Gap 18 mmol/L 06/27/18 04:47 BUN 32 mg/dL (9-20) H 06/27/18 04:47 Creatinine 1.6 mg/dL (0.8-1.5) H 06/27/18 04:47 Estimated GFR 52 ml/min 06/27/18 04:47 BUN/Creatinine Ratio 20 % 06/27/18 04:47 Glucose 299 mg/dL (75-100) H 06/27/18 04:47 POC Glucose 329 (70-105) H 06/27/18 12:24 Lactic Acid 1.60 mmol/L (0.7-2.0) 06/24/18 11:25 Calcium 10.2 mg/dL (8.4-10.2) 06/27/18 04:47 Total Bilirubin 0.40 mg/dL (0.1-1.2) 06/27/18 04:47 AST 37 units/L (5-40) 06/27/18 04:47 ALT 22 units/L (7-56) 06/27/18 04:47 Alkaline Phosphatase 95 units/L (35-129) 06/27/18 04:47 Ammonia 53.0 umol/L (25-60) 06/24/18 19:42 Total Creatine Kinase 1644 units/L (55-170) H 06/25/18 07:49 Troponin T 0.071 ng/mL (0.00-0.029) H D 06/25/18 07:49 Total Protein 7.3 g/dL (6.3-8.2) 06/27/18 04:47 Albumin 3.1 g/dL (3.9-5) L 06/27/18 04:47 Albumin/Globulin Ratio 0.7 % 06/27/18 04:47 Triglycerides 81 mg/dL (2-149) 06/24/18 06:05 Cholesterol 142 mg/dL (50-199) 06/24/18 06:05 LDL Cholesterol Direct 75 mg/dL (50-130) 06/24/18 06:05 HDL Cholesterol 63 mg/dL (40-59) H 06/24/18 06:05 Cholesterol/HDL Ratio 2.25 % 06/24/18 06:05 Vitamin B12 653.2 pg/mL (211-911) 06/24/18 19:42 TSH 2.270 mlU/mL (0.270-4.200) 06/24/18 19:42 Urine Color Yellow (Yellow) 06/24/18 06:05 Urine Turbidity Clear (Clear) 06/24/18 06:05 Urine pH 5.0 (5.0-7.0) 06/24/18 06:05 Ur Specific [place] 1.023 (1.003-1.030) 06/24/18 06:05 Urine Protein 100 mg/dl mg/dL (Negative) 06/24/18 06:05 Urine Glucose (UA) Neg mg/dL (Negative) 06/24/18 06:05 Urine Ketones Tr mg/dL (Negative) 06/24/18 06:05 Urine Blood Lg (Negative) 06/24/18 06:05 Urine Nitrite Neg (Negative) 06/24/18 06:05 Urine Bilirubin Neg (Negative) 06/24/18 06:05 Urine Urobilinogen 2.0 mg/dL (<2.0) 06/24/18 06:05 Ur Leukocyte Esterase Neg (Negative) 06/24/18 06:05 Urine WBC (Auto) 1.0 /HPF (0.0-6.0) 06/24/18 06:05 Urine RBC (Auto) 12.0 /HPF (0.0-6.0) 06/24/18 06:05 Urine Bacteria (Auto) 1+ /HPF (Negative) 06/24/18 06:05 Urine Mucus Few /HPF 06/24/18 06:05 Urine Opiates Screen Presumptive negative 06/24/18 06:05 Urine Methadone Screen Presumptive negative 06/24/18 06:05 Ur Barbiturates Screen Presumptive negative 06/24/18 06:05 Ur Phencyclidine Scrn Presumptive negative 06/24/18 06:05 Ur Amphetamines Screen Presumptive negative 06/24/18 06:05 U Benzodiazepines Scrn Presumptive negative 06/24/18 06:05 Urine Cocaine Screen Presumptive negative 06/24/18 06:05 U Marijuana (THC) Screen Presumptive negative 06/24/18 06:05 Drugs of Abuse Note Disclamer 06/24/18 06:05 Plasma/Serum Alcohol < 0.01 % (0-0.07) 06/24/18 06:05 Active Medications - Current Medications Current Medications: Generic Name Dose Route Start Last Admin Trade Name Freq PRN Reason Stop Dose Admin Acetaminophen 650 mg 06/24/18 08:27 06/26/18 11:21 Tylenol PO 650 mg Q4H PRN Administration Pain, Mild (1-3) Lipase/Protease/Amylase 1 each 06/25/18 12:55 Pancremicah Perkins 10,500 Unit FEEDTUBE PRN PRN For Clogged Feeding Tube Aspirin 325 mg 06/27/18 10:00 06/27/18 09:26 Aspirin PO 325 mg QDAY MICHEL Administration Atorvastatin Calcium 40 mg 06/24/18 22:00 06/26/18 22:09 Lipitor PO 40 mg QHS MICHEL Administration Bisacodyl 10 mg 06/24/18 08:27 Dulcolax SD QDAY PRN Constipation Dextrose 50 ml 06/24/18 08:29 D50w (25gm) Syringe IV PRN PRN Hypoglycemia Furosemide 40 mg 06/25/18 10:00 06/27/18 09:26 Lasix PO 40 mg QDAY MICHEL Administration Gabapentin 300 mg 06/25/18 10:00 06/27/18 09:26 Neurontin PO 300 mg BID MICHEL Administration Hydralazine HCl 10 mg 06/27/18 08:09 Apresoline IV Q4H PRN BP > 160/100 Sodium Chloride 1,000 mls @ 100 mls/hr 06/24/18 09:00 Nacl 0.9% 1000 Ml IV DIRECT MICHEL Levofloxacin/Dextrose 750 mg in 150 mls @ 100 mls/hr 06/26/18 12:00 06/26/18 11:08 Levaquin 750mg/150ml IV 100 mls/hr Q48H MICHEL Administration Protocol Insulin Glargine 10 units 06/27/18 22:00 Lantus SUB-Q QHS MICHEL Insulin Human Lispro 0 unit 06/24/18 11:30 06/27/18 12:32 Humalog SUB-Q 8 unit ACHS [facility] Administration Protocol Levetiracetam 750 mg 06/27/18 10:00 06/27/18 09:25 Keppra PO 750 mg BID MICHEL Administration Losartan Potassium 25 mg 06/25/18 10:00 06/27/18 09:26 Cozaar PO 25 mg QDAY MICHEL Administration Magnesium Hydroxide 30 ml 06/24/18 08:27 Milk Of Magnesia PO Q4H PRN Constipation Metoclopramide HCl 10 mg 06/24/18 08:27 Reglan PO Q6H PRN Nausea And Vomiting Metoprolol Tartrate 25 mg 06/25/18 10:00 06/27/18 09:26 Lopressor PO 25 mg BID MICHEL Administration Ondansetron HCl 4 mg 06/24/18 08:27 Zofran IV Q8H PRN Nausea And Vomiting Pantoprazole Sodium 20 mg 06/25/18 10:00 06/27/18 09:25 Protonix PO 20 mg QDAY MICHEL Administration Promethazine HCl 25 mg 06/24/18 08:27 Phenergan SD Q6H PRN Nausea And Vomiting Simple Syrup 15 ml 06/25/18 12:55 Simple Syrup FEEDTUBE PRN PRN Hypoglycemia Simple Syrup 30 ml 06/25/18 12:55 Simple Syrup FEEDTUBE PRN PRN Hypoglycemia Sodium Bicarbonate 325 mg 06/25/18 12:55 Sodium Bicarbonate FEEDTUBE PRN PRN For Clogged Feeding Tube Sodium Chloride 10 ml 06/24/18 08:27 Sodium Chloride Flush Syringe 10 Ml IV PRN PRN LINE FLUSH Spironolactone 25 mg 06/25/18 10:00 06/27/18 09:27 Aldactone PO 25 mg QDAY [facility] Administration Warfarin Sodium 7.5 mg 06/27/18 17:00 Coumadin PO DAILY@1700 [facility] Nutrition/Malnutrition Assess - Dietary Evaluation Nutrition/Malnutrition Findings: Nutrition Notes Start: 06/25/18 12:40 Freq: Status: Active Protocol: Document 06/25/18 12:40 RM (Rec: 06/25/18 12:55 RM [id number]) Nutrition Notes Need for Assessment generated from: MD Order Initial or Follow up Assessment Current Diagnosis Coronary Artery Disease, Diabetes,Hypertension, Hyperlipidemia Other Pertinent Diagnosis Hx prostate cancer, AMS Current Diet No diet ordered Labs/Tests Reviewed Pertinent Medications Reviewed Height 5 ft 8 in Weight 72.575 kg [place] Body Weight (kg) 70.00 BMI 24.3 Subjective/Other Information Consulted for TF recommendation. MD ordering CVA work up per Hx and physical. ST unable to wake pt for swallow evaluation per missed treatment note . NG tube in place. Burn Absent Trauma Absent #1 Nutrition Diagnosis Inadequate oral intake Etiology AMS, possible CVA As Evidenced by Signs and Symptoms no diet ordered Is patient on ventilator? No Is Patient Ambulatory and/or Out of Bed No REE-([place]-confined to bed) 9253.019 Calculation Used for Recommendations [facility] Additional Notes Protein Needs: 73-87g (1-1.2g/ kg) Fluid Needs: 1 ml/kcal Nutrition Intervention Nutrition Support: Glucerna 1.2 at 60 ml/hr. Water flush of 100 mls q 4 hrs . Kcal 1,728 Protein (gm) 86 Fluid (mL) 1,159 Goal #1 TF tolerance Goal #2 Meet at least 75% of calorie and protein needs via TF Anticipated Discharge Needs: Unable to determine at this time Follow-Up By: 06/29/18 Additional Comments Follow for new TF
--- NOTE | 2018-06-27 16:46 | XRay Report ---
PROCEDURE: XR ABDOMEN 1V AP TECHNIQUE: Frontal view of the abdomen and pelvis HISTORY: dobhoff placement COMPARISONS: X-ray abdomen dated June 25, 2018 FINDINGS: The tip of the Dobbhoff catheter is projected in the region of the distal stomach. The bowel gas pattern is nonobstructive with air in nondistended loops of small bowel and colon. There is no evidence of pneumoperitoneum. IMPRESSION: 1. Dobbhoff catheter tip projected in the region of the distal stomach. This document is electronically signed by Jaci Dumas MD., June 27 2018 04:44:46 PM ET
[2018-06-27] MEDS: COUMADIN PO SCH (17:23)
[2018-06-27] MEDS ORDERED: LANTUS SUB-Q SCH (22:00)
[2018-06-28 05:10] LABS: Calcium 10.2 mg/dL (8.4-10.2)
[2018-06-28 05:11] LABS: INR 1.52 (0.87-1.13)
[2018-06-28] MEDS: HumaLOG SUB-Q SCH ×4 (08:12→23:35)
[2018-06-28] MEDS: KEPPRA PO SCH ×2 (09:19→21:08)
[2018-06-28] MEDS: LOPRESSOR PO SCH ×2 (09:20→21:09)
[2018-06-28] MEDS: LASIX PO SCH (09:20)
[2018-06-28] MEDS: ASPIRIN PO SCH (09:20)
[2018-06-28] MEDS: PROTONIX PO SCH (09:20)
[2018-06-28] MEDS: NEURONTIN PO SCH ×2 (09:20→21:09)
[2018-06-28] MEDS: ALDACTONE PO SCH (09:21)
[2018-06-28] MEDS: COZAAR PO SCH ×2 (09:22→14:13)
[2018-06-28] MEDS: LEVAQUIN 750MG/150ML 750 MG/150 ML BAG IV SCH (11:43)
[2018-06-28] MEDS: TYLENOL PO PRN ×2 (11:44→19:40)
--- NOTE | 2018-06-28 12:33 | Progress Note ---
Assessment and Plan - Patient Problems (1) Atrial fibrillation Current Visit: Yes Status: Acute Plan to address problem: It will be recalled that he presented to the hospital with altered mental status. A brain MRI shows evidence of an acute frontal lobe infarct. His cardiac history is that of a previous coronary artery bypass in 1999, with a follow-up cardiac catheterization in 2013 that reported patent bypass grafts. His left ventricular ejection fraction has been normal, at 50-55%. Other significant cardiac pathology is paroxysmal atrial fibrillation, chronically on Coumadin. His INR on this presentation was mildly subtherapeutic at 1.76. In the past 24 hours, he has spontaneously transitioned from atrial fibrillation to a stable sinus rhythm. We will continue warfarin, aim for therapeutic range of 2.5-3.0. I will reduce aspirin to 81 mg while patient is on Coumadin. (2) Coronary artery disease Current Visit: Yes Status: Acute Plan to address problem: It will be recalled that he presented to the hospital with altered mental status. A brain MRI shows evidence of an acute frontal lobe infarct. His cardiac history is that of a previous coronary artery bypass in 1999, with a follow-up cardiac catheterization in 2013 that reported patent bypass grafts. His left ventricular ejection fraction has been normal, at 50-55%. Other significant cardiac pathology is paroxysmal atrial fibrillation, chronically on Coumadin. His INR on this presentation was mildly subtherapeutic at 1.76. We will continue conservative medical therapy and risk factor modification for his coronary artery disease. Subjective Date of service: 06/28/18 Interval history: The patient is lethargic, somnolent. He has an NG feeding tube in place. On telemetry, he has spontaneously returned to a stable, normal sinus rhythm. It will be recalled that he presented to the hospital with altered mental status. A brain MRI shows evidence of an acute frontal lobe infarct. His cardiac history is that of a previous coronary artery bypass in 1999, with a follow-up cardiac catheterization in 2013 that reported patent bypass grafts. His left ventricular ejection fraction has been normal, at 50-55%. Other significant cardiac pathology is paroxysmal atrial fibrillation, chronically on Coumadin. His INR on this presentation was mildly subtherapeutic at 1.76. Objective Vital Signs Temp Pulse Pulse Resp BP Pulse Ox 06/28/18 09:22 121 H 183/87 06/28/18 09:21 121 H 183/87 06/28/18 09:20 125 H 185/87 06/28/18 08:19 99.6 F 06/28/18 08:11 122 H 49 H 195/87 98 06/28/18 08:01 110 H 39 H 195/87 98 06/28/18 08:00 99.6 F 06/28/18 07:51 116 H 27 H 166/84 98 06/28/18 07:41 108 H 34 H 166/84 98 06/28/18 07:31 103 H 38 H 166/84 98 06/28/18 07:21 116 H 37 H 166/84 99 06/28/18 07:11 127 H 24 166/84 98 06/28/18 07:00 111 H 27 H 166/84 98 06/28/18 06:51 103 H 32 H 165/93 98 06/28/18 06:41 103 H 26 H 165/93 98 06/28/18 06:31 106 H 33 H 165/93 97 06/28/18 06:21 103 H 24 165/93 98 06/28/18 06:11 103 H 19 165/93 98 06/28/18 06:00 104 H 38 H 167/93 99 06/28/18 05:51 103 H 29 H 167/93 99 06/28/18 05:41 107 H 33 H 167/93 98 06/28/18 05:31 112 H 29 H 167/93 99 06/28/18 05:21 98 H 30 H 167/93 98 06/28/18 05:00 103 H 33 H 167/93 99 06/28/18 04:01 103 H 28 H 164/88 99 06/28/18 04:00 99.9 F H 31 H 90 06/28/18 03:31 102 H 29 H 155/87 99 06/28/18 03:21 96 H 31 H 155/87 98 06/28/18 03:11 97 H 30 H 155/87 99 06/28/18 03:00 99 H 21 155/87 98 06/28/18 02:51 101 H 24 157/78 99 06/28/18 02:41 100 H 14 157/78 98 06/28/18 02:31 95 H 17 157/78 98 06/28/18 02:21 95 H 13 157/78 98 06/28/18 02:11 101 H 31 H 157/78 98 06/28/18 02:00 106 H 19 154/81 100 06/28/18 01:51 101 H 23 154/81 99 06/28/18 01:41 95 H 32 H 154/81 99 06/28/18 01:31 92 H 33 H 154/81 99 06/28/18 01:21 92 H 29 H 154/81 98 06/28/18 01:11 85 32 H 154/81 98 06/28/18 01:00 97 H 31 H 154/81 99 06/28/18 00:51 91 H 31 H 149/78 98 06/28/18 00:41 92 H 30 H 149/78 98 06/28/18 00:31 89 34 H 149/78 98 06/28/18 00:21 98 H 42 H 149/78 98 06/28/18 00:11 94 H 28 H 149/78 98 06/28/18 00:00 99.5 F 90 31 H 149/78 90 06/27/18 23:51 93 H 26 H 142/74 98 06/27/18 23:41 92 H 27 H 142/74 98 06/27/18 23:31 91 H 22 142/74 98 06/27/18 23:21 89 26 H 142/74 99 06/27/18 23:11 99 H 26 H 142/74 99 06/27/18 23:00 83 24 142/74 99 06/27/18 22:51 88 28 H 155/86 99 06/27/18 22:41 80 27 H 155/86 99 06/27/18 22:31 93 H 29 H 155/86 100 06/27/18 22:21 87 28 H 155/86 99 06/27/18 22:11 83 23 155/87 99 06/27/18 22:00 89 29 H 155/87 98 06/27/18 21:51 96 H 28 H 145/82 98 06/27/18 21:41 94 H 145/82 06/27/18 21:40 91 H 31 H 155/86 100 06/27/18 21:31 97 H 23 155/86 98 06/27/18 21:21 93 H 19 155/86 99 06/27/18 21:11 84 26 H 155/86 99 06/27/18 21:00 85 30 H 155/86 99 06/27/18 20:51 82 25 H 166/95 99 06/27/18 20:40 84 20 157/95 97 06/27/18 20:39 77 166/95 06/27/18 20:31 87 28 H 166/95 98 06/27/18 20:21 84 22 166/95 98 06/27/18 20:11 83 20 166/95 98 06/27/18 20:01 82 28 H 166/95 99 06/27/18 20:00 75 22 166/95 97 06/27/18 19:45 99.2 F 06/27/18 19:01 76 21 179/89 99 06/27/18 18:11 72 19 149/97 99 06/27/18 18:00 78 21 149/97 98 06/27/18 17:51 67 25 H 151/94 97 06/27/18 17:41 71 24 151/94 99 06/27/18 17:31 79 26 H 151/94 98 06/27/18 17:21 82 23 151/94 99 06/27/18 17:11 88 28 H 151/94 98 06/27/18 17:00 91 H 20 151/94 99 06/27/18 16:51 91 H 15 139/91 99 06/27/18 16:41 103 H 18 139/91 99 06/27/18 16:31 95 H 28 H 147/91 99 06/27/18 16:21 92 H 29 H 147/91 100 06/27/18 16:11 92 H 18 147/91 98 06/27/18 16:00 97 H 81 18 139/91 97 06/27/18 15:51 99 H 21 147/91 98 06/27/18 15:41 89 20 147/91 98 06/27/18 15:31 92 H 30 H 147/91 98 06/27/18 15:21 74 29 H 147/91 98 06/27/18 15:11 92 H 25 H 147/91 99 06/27/18 15:00 90 34 H 147/91 100 06/27/18 14:51 94 H 35 H 167/86 98 06/27/18 14:41 88 19 167/86 99 06/27/18 14:31 96 H 27 H 167/86 98 06/27/18 14:21 91 H 21 167/86 98 06/27/18 14:11 99 H 29 H 167/86 98 06/27/18 14:00 92 H 26 H 167/86 98 06/27/18 13:51 97 H 32 H 157/92 96 06/27/18 13:41 95 H 28 H 157/92 97 06/27/18 13:31 97 H 31 H 178/89 96 06/27/18 13:21 94 H 21 178/89 97 06/27/18 13:11 104 H 27 H 178/89 95 06/27/18 13:00 107 H 21 157/92 98 06/27/18 12:51 101 H 31 H 178/89 97 06/27/18 12:41 101 H 24 178/89 98 06/27/18 12:31 98 H 29 H 191/152 98 - Physical Examination General: No Apparent Distress, Cachectic HEENT: Positive: PERRL Neck: Positive: neck supple Cardiac: Positive: Reg Rate and Rhythm Lungs: Positive: Decreased Breath Sounds Neuro: Positive: Weakness Abdomen: Positive: Soft Skin: Positive: Clear Extremities: Absent: edema - Labs and Meds Coagulation 06/28/18 Range/Units 03:28 PT 19.3 H (12.2-14.9) Sec. INR 1.52 H (0.87-1.13) Comprehensive Metabolic Panel 06/28/18 Range/Units 03:28 Sodium 146 H (137-145) mmol/L Potassium 4.7 D (3.6-5.0) mmol/L Chloride 110.3 H (98-107) mmol/L Carbon Dioxide 21 L (22-30) mmol/L BUN 37 H (9-20) mg/dL Creatinine 1.7 H (0.8-1.5) mg/dL Glucose 446 H (75-100) mg/dL Calcium 10.2 (8.4-10.2) mg/dL
--- NOTE | 2018-06-28 14:20 | Progress Note ---
Assessment and Plan Assessment and plan: The high probability of a clinically significant, sudden or life threatening deterioration of the [] system(s) required my full and direct attention, intervention and personal management. The aggregate critical care time was [] minutes. This time is in addition to time spent performing reported procedures but includes the following: [x] Data Review and interpretation [x] Patient assessment and monitoring of vital signs x[x] Documentation [x] Medication orders and management Total Time Spent with Patient (Minutes): 32 - Patient Problems (1) Uncontrolled diabetes mellitus Current Visit: Yes Status: Acute Plan to address problem: Patient with uncontrolled diabetes Accu-Chek ranged from 320 04/06/2021. We'll increase Lantus to 18 A increase sliding scale insulin to high-dose sliding scale. (2) Acute renal insufficiency Current Visit: Yes Status: Acute Plan to address problem: Most likely prerenal azotemia. Continue fluids. (3) Altered mental state Current Visit: Yes Status: Acute Qualifiers: Altered mental status type: unspecified Qualified Code(s): R41.82 - Altered mental status, unspecified Plan to address problem: Secondary to anoxia from CVA versus seizure disorder. EEG showed encephalopat hy. MRI showed CVA. (4) Atrial fibrillation Current Visit: Yes Status: Acute Plan to address problem: Patient currently is sinus rhythm. Currently on aspirin and statin and Coumadin. INR 1.52. Treat accordingly. (5) Coronary artery disease Current Visit: Yes Status: Acute (6) Dehydration Current Visit: Yes Status: Acute Plan to address problem: Patient evidence of rhabdo continue aggressive IV volume hydration. (7) Encephalopathy Current Visit: Yes Status: Acute (8) Accelerated hypertension Current Visit: No Status: Acute Plan to address problem: The potential much better 140/86. With that titrating both medications today observed for a year. History Interval history: At present patient continues to be somnolent and cephalopathic. Unable to really test her questions for me at this particular time. Hospitalist Physical - Constitutional Vitals: Temp Pulse Resp BP Pulse Ox 101.7 F H 107 H 40 H 140/76 97 06/28/18 12:00 06/28/18 14:13 06/28/18 12:51 06/28/18 14:13 06/28/18 12:51 General appearance: Present: no acute distress - EENT Eyes: Present: PERRL, EOM intact ENT: poor dentition, no oropharyngeal erythema, no thrush, no ulcerations, no edentulous - Neck Neck: Present: supple, normal ROM. Absent: enlarged thyroid, masses or JVD, cervical LAD - Respiratory Respiratory: bilateral: diminished, rhonchi (poor inspiratory effort) - Cardiovascular Rhythm: regular Heart Sounds: Present: S1 & S2 - Extremities Extremities: no ischemia, pulses intact, pulses symmetrical, No edema, normal temperature, normal color Peripheral Pulses: within normal limits - Abdominal General gastrointestinal: soft, non-tender, non-distended, normal bowel sounds - Neurologic Neurologic: focal deficits, other (altered) Results - Labs CBC & Chem 7: 06/27/18 04:47 06/28/18 03:28 Labs: Laboratory Last Values WBC 11.9 K/mm3 (4.5-11.0) H 06/27/18 04:47 RBC 4.53 M/mm3 (3.65-5.03) 06/27/18 04:47 Hgb 13.6 gm/dl (11.8-15.2) 06/27/18 04:47 Hct 41.3 % (35.5-45.6) 06/27/18 04:47 MCV 91 fl (84-94) 06/27/18 04:47 MCH 30 pg (28-32) 06/27/18 04:47 MCHC 33 % (32-34) 06/27/18 04:47 RDW 14.2 % (13.2-15.2) 06/27/18 04:47 Plt Count 193 K/mm3 (140-440) 06/27/18 04:47 Lymph % (Auto) 18.0 % (13.4-35.0) 06/27/18 04:47 Mcleod % (Auto) 12.4 % (0.0-7.3) H 06/27/18 04:47 Eos % (Auto) 2.3 % (0.0-4.3) 06/27/18 04:47 Baso % (Auto) 0.8 % (0.0-1.8) 06/27/18 04:47 Lymph # 2.1 K/mm3 (1.2-5.4) 06/27/18 04:47 Mcleod # 1.5 K/mm3 (0.0-0.8) H 06/27/18 04:47 Eos # 0.3 K/mm3 (0.0-0.4) 06/27/18 04:47 Baso # 0.1 K/mm3 (0.0-0.1) 06/27/18 04:47 Seg Neutrophils % 66.5 % (40.0-70.0) 06/27/18 04:47 Seg Neutrophils # 7.9 K/mm3 (1.8-7.7) H 06/27/18 04:47 PT 19.3 Sec. (12.2-14.9) H 06/28/18 03:28 INR 1.52 (0.87-1.13) H 06/28/18 03:28 Sodium 146 mmol/L (137-145) H 06/28/18 03:28 Potassium 4.7 mmol/L (3.6-5.0) D 06/28/18 03:28 Chloride 110.3 mmol/L (98-107) H 06/28/18 03:28 Carbon Dioxide 21 mmol/L (22-30) L 06/28/18 03:28 Anion Gap 20 mmol/L 06/28/18 03:28 BUN 37 mg/dL (9-20) H 06/28/18 03:28 Creatinine 1.7 mg/dL (0.8-1.5) H 06/28/18 03:28 Estimated GFR 48 ml/min 06/28/18 03:28 BUN/Creatinine Ratio 22 % 06/28/18 03:28 Glucose 446 mg/dL (75-100) H 06/28/18 03:28 POC Glucose 407 (70-105) H 06/28/18 11:40 Lactic Acid 1.60 mmol/L (0.7-2.0) 06/24/18 11:25 Calcium 10.2 mg/dL (8.4-10.2) 06/28/18 03:28 Total Bilirubin 0.40 mg/dL (0.1-1.2) 06/27/18 04:47 AST 37 units/L (5-40) 06/27/18 04:47 ALT 22 units/L (7-56) 06/27/18 04:47 Alkaline Phosphatase 95 units/L (35-129) 06/27/18 04:47 Ammonia 53.0 umol/L (25-60) 06/24/18 19:42 Total Creatine Kinase 1644 units/L (55-170) H 06/25/18 07:49 Troponin T 0.071 ng/mL (0.00-0.029) H D 06/25/18 07:49 Total Protein 7.3 g/dL (6.3-8.2) 06/27/18 04:47 Albumin 3.1 g/dL (3.9-5) L 06/27/18 04:47 Albumin/Globulin Ratio 0.7 % 06/27/18 04:47 Triglycerides 81 mg/dL (2-149) 06/24/18 06:05 Cholesterol 142 mg/dL (50-199) 06/24/18 06:05 LDL Cholesterol Direct 75 mg/dL (50-130) 06/24/18 06:05 HDL Cholesterol 63 mg/dL (40-59) H 06/24/18 06:05 Cholesterol/HDL Ratio 2.25 % 06/24/18 06:05 Vitamin B12 653.2 pg/mL (211-911) 06/24/18 19:42 TSH 2.270 mlU/mL (0.270-4.200) 06/24/18 19:42 Urine Color Yellow (Yellow) 06/24/18 06:05 Urine Turbidity Clear (Clear) 06/24/18 06:05 Urine pH 5.0 (5.0-7.0) 06/24/18 06:05 Ur Specific [place] 1.023 (1.003-1.030) 06/24/18 06:05 Urine Protein 100 mg/dl mg/dL (Negative) 06/24/18 06:05 Urine Glucose (UA) Neg mg/dL (Negative) 06/24/18 06:05 Urine Ketones Tr mg/dL (Negative) 06/24/18 06:05 Urine Blood Lg (Negative) 06/24/18 06:05 Urine Nitrite Neg (Negative) 06/24/18 06:05 Urine Bilirubin Neg (Negative) 06/24/18 06:05 Urine Urobilinogen 2.0 mg/dL (<2.0) 06/24/18 06:05 Ur Leukocyte Esterase Neg (Negative) 06/24/18 06:05 Urine WBC (Auto) 1.0 /HPF (0.0-6.0) 06/24/18 06:05 Urine RBC (Auto) 12.0 /HPF (0.0-6.0) 06/24/18 06:05 Urine Bacteria (Auto) 1+ /HPF (Negative) 06/24/18 06:05 Urine Mucus Few /HPF 06/24/18 06:05 Urine Opiates Screen Presumptive negative 06/24/18 06:05 Urine Methadone Screen Presumptive negative 06/24/18 06:05 Ur Barbiturates Screen Presumptive negative 06/24/18 06:05 Ur Phencyclidine Scrn Presumptive negative 06/24/18 06:05 Ur Amphetamines Screen Presumptive negative 06/24/18 06:05 U Benzodiazepines Scrn Presumptive negative 06/24/18 06:05 Urine Cocaine Screen Presumptive negative 06/24/18 06:05 U Marijuana (THC) Screen Presumptive negative 06/24/18 06:05 Drugs of Abuse Note Disclamer 06/24/18 06:05 Plasma/Serum Alcohol < 0.01 % (0-0.07) 06/24/18 06:05 Active Medications - Current Medications Current Medications: Generic Name Dose Route Start Last Admin Trade Name Freq PRN Reason Stop Dose Admin Acetaminophen 650 mg 06/24/18 08:27 06/28/18 11:44 Tylenol PO 650 mg Q4H PRN Administration Pain, Mild (1-3) Lipase/Protease/Amylase 1 each 06/25/18 12:[address] 10,500 Unit FEEDTUBE PRN PRN For Clogged Feeding Tube Aspirin 81 mg 06/29/18 10:00 Baby Aspirin PO QDAY MICHEL Atorvastatin Calcium 40 mg 06/24/18 22:00 06/27/18 21:40 Lipitor PO 40 mg QHS MICHEL Administration Bisacodyl 10 mg 06/24/18 08:27 Dulcolax [place] QDAY PRN Constipation Dextrose 50 ml 06/24/18 08:29 D50w (25gm) Syringe IV PRN PRN Hypoglycemia Furosemide 40 mg 06/25/18 10:00 06/28/18 09:20 Lasix PO 40 mg QDAY MICHEL Administration Gabapentin 300 mg 06/25/18 10:00 06/28/18 09:20 Neurontin PO 300 mg BID MICHEL Administration Hydralazine HCl 10 mg 06/27/18 08:09 06/27/18 20:39 Apresoline IV 10 mg Q4H PRN Administration BP > 160/100 Sodium Chloride 1,000 mls @ 100 mls/hr 06/24/18 09:00 Nacl 0.9% 1000 Ml IV DIRECT MICHEL Levofloxacin/Dextrose 750 mg in 150 mls @ 100 mls/hr 06/26/18 12:00 06/28/18 11:43 Levaquin 750mg/150ml IV 100 mls/hr Q48H MICHEL Administration Protocol Insulin Glargine 10 units 06/27/18 22:00 06/27/18 21:43 Lantus SUB-Q 10 units QHS MICHEL Administration Insulin Human Lispro 0 unit 06/24/18 11:30 06/28/18 11:44 Humalog SUB-Q 10 unit ACHS MICHEL Administration Protocol Levetiracetam 750 mg 06/27/18 10:00 06/28/18 09:19 Keppra PO 750 mg BID [facility] Administration Losartan Potassium 50 mg 06/28/18 13:00 06/28/18 14:13 Cozaar PO 50 mg QDAY [facility] Administration Magnesium Hydroxide 30 ml 06/24/18 08:27 Milk Of Magnesia PO Q4H PRN Constipation Metoclopramide HCl 10 mg 06/24/18 08:27 Reglan PO Q6H PRN Nausea And Vomiting Metoprolol Tartrate 50 mg 06/28/18 13:00 Lopressor PO BID [facility] Ondansetron HCl 4 mg 06/24/18 08:27 Zofran IV Q8H PRN Nausea And Vomiting Pantoprazole Sodium 20 mg 06/25/18 10:00 06/28/18 09:20 Protonix PO 20 mg QDAY [facility] Administration Promethazine HCl 25 mg 06/24/18 08:27 Phenergan [place] Q6H PRN Nausea And Vomiting Simple Syrup 15 ml 06/25/18 12:55 Simple Syrup FEEDTUBE PRN PRN Hypoglycemia Simple Syrup 30 ml 06/25/18 12:55 Simple Syrup FEEDTUBE PRN PRN Hypoglycemia Sodium Bicarbonate 325 mg 06/25/18 12:55 Sodium Bicarbonate FEEDTUBE PRN PRN For Clogged Feeding Tube Sodium Chloride 10 ml 06/24/18 08:27 Sodium Chloride Flush Syringe 10 Ml IV PRN PRN LINE FLUSH Spironolactone 25 mg 06/25/18 10:00 06/28/18 09:21 Aldactone PO 25 mg QDAY MICHEL Administration Warfarin Sodium 7.5 mg 06/27/18 17:00 06/27/18 17:23 Coumadin PO 7.5 mg DAILY@1700 MICHEL Administration Nutrition/Malnutrition Assess - Dietary Evaluation Nutrition/Malnutrition Findings: Nutrition Notes Start: 06/25/18 12:40 Freq: Status: Active Protocol: Document 06/25/18 12:40 RM (Rec: 06/25/18 12:55 RM [id number]) Nutrition Notes Need for Assessment generated from: MD Order Initial or Follow up Assessment Current Diagnosis Coronary Artery Disease, Diabetes,Hypertension, Hyperlipidemia Other Pertinent Diagnosis Hx prostate cancer, AMS Current Diet No diet ordered Labs/Tests Reviewed Pertinent Medications Reviewed Height 5 ft 8 in Weight 72.575 kg [place] Body Weight (kg) 70.00 BMI 24.3 Subjective/Other Information Consulted for TF recommendation. MD ordering CVA work up per Hx and physical. ST unable to wake pt for swallow evaluation per missed treatment note . NG tube in place. Burn Absent Trauma Absent #1 Nutrition Diagnosis Inadequate oral intake Etiology AMS, possible CVA As Evidenced by Signs and Symptoms no diet ordered Is patient on ventilator? No Is Patient Ambulatory and/or Out of Bed No REE-([facility]-confined to bed) [phone] Calculation Used for Recommendations [facility] Additional Notes Protein Needs: 73-87g (1-1.2g/ kg) Fluid Needs: 1 ml/kcal Nutrition Intervention Nutrition Support: Glucerna 1.2 at 60 ml/hr. Water flush of 100 mls q 4 hrs . Kcal 1,728 Protein (gm) 86 Fluid (mL) 1,159 Goal #1 TF tolerance Goal #2 Meet at least 75% of calorie and protein needs via TF Anticipated Discharge Needs: Unable to determine at this time Follow-Up By: 06/29/18 Additional Comments Follow for new TF
[2018-06-28] MEDS: COUMADIN PO SCH (17:35)
[2018-06-28] MEDS ORDERED: LANTUS SUB-Q SCH (22:00)
[2018-06-29] MEDS: TYLENOL PO PRN ×3 (00:46→20:39)
[2018-06-29 04:39] LABS: INR 1.99 (0.87-1.13)
[2018-06-29 04:51] LABS: Calcium 9.6 mg/dL (8.4-10.2)
[2018-06-29] MEDS ORDERED: HumaLOG SUB-Q STA (05:11)
[2018-06-29] MEDS: HumaLOG SUB-Q SCH ×4 (09:41→21:10)
[2018-06-29] MEDS: KEPPRA PO SCH ×2 (10:09→21:14)
[2018-06-29] MEDS: COZAAR PO SCH (10:09)
[2018-06-29] MEDS: ALDACTONE PO SCH (10:10)
[2018-06-29] MEDS: PROTONIX PO SCH (10:11)
[2018-06-29] MEDS: BABY ASPIRIN PO SCH (10:11)
[2018-06-29] MEDS: LASIX PO SCH (10:11)
[2018-06-29] MEDS: NEURONTIN PO SCH ×2 (10:11→21:12)
[2018-06-29] MEDS: LOPRESSOR PO SCH ×3 (10:12→21:12)
--- NOTE | 2018-06-29 10:12 | Progress Note ---
Assessment and Plan Acute CVA brain MRI shows evidence of an acute frontal lobe infarct. Lactic acidosis Hypertension Diabetes -uncontrolled Hx of CAD with 3v CABG in [facility] 2014 reports patent bypass grafts EF 50-55% by echocardiogram this admission Paroxysmal afib currently in afib on warfarin as an outpatient. INR 1.76 on presentation Abnormal troponin in the setting of rhabdomyolysis Recommendations: We will continue warfarin, aim for therapeutic range of 2.5-3.0. Otherwise, conservative cardiac management. Subjective Date of service: 06/29/18 Interval history: Afib with a well control ventricular rate on telemetry. Objective Vital Signs Temp Pulse Pulse Resp BP Pulse Ox 06/29/18 08:36 98 06/29/18 07:37 97.8 F 06/29/18 04:00 99.6 F 78 78 19 153/78 98 06/29/18 03:51 78 29 H 156/84 98 06/29/18 03:41 77 20 156/84 97 06/29/18 03:31 76 26 H 156/84 99 06/29/18 03:21 76 21 156/84 99 06/29/18 03:11 74 20 156/84 99 06/29/18 03:01 76 22 156/84 99 06/29/18 02:51 75 21 156/84 99 06/29/18 02:41 76 29 H 156/84 99 06/29/18 02:31 76 31 H 156/84 100 06/29/18 02:21 74 20 156/84 99 06/29/18 02:11 75 22 156/84 99 06/29/18 02:01 74 20 156/84 99 06/29/18 01:51 74 22 156/84 99 06/29/18 01:41 75 27 H 163/82 100 06/29/18 01:31 76 27 H 163/82 100 06/29/18 01:21 78 20 163/82 100 06/29/18 01:10 89 21 156/84 99 06/29/18 01:01 99 H 30 H 163/82 98 06/29/18 00:51 98 H 22 163/82 98 06/29/18 00:41 97 H 32 H 163/82 98 06/29/18 00:31 96 H 24 163/82 98 06/29/18 00:21 95 H 32 H 167/88 98 06/29/18 00:17 96 H 25 H 98 06/29/18 00:14 95 H 06/29/18 00:11 94 H 23 167/88 99 06/29/18 00:00 99 F 94 H 32 H 167/88 99 06/28/18 23:56 97 06/28/18 23:51 93 H 32 H 152/78 99 06/28/18 23:41 91 H 24 152/78 99 06/28/18 23:31 92 H 23 152/78 93 06/28/18 23:21 89 23 152/78 94 06/28/18 23:11 89 32 H 152/78 94 06/28/18 23:01 88 31 H 152/78 94 06/28/18 22:51 85 22 152/78 94 06/28/18 22:41 86 32 H 152/78 94 06/28/18 22:31 85 23 152/78 95 06/28/18 22:21 83 28 H 152/78 96 06/28/18 22:11 83 29 H 152/78 96 06/28/18 22:01 82 31 H 152/78 95 06/28/18 21:50 82 24 152/78 95 06/28/18 21:41 82 35 H 152/78 95 06/28/18 21:31 82 32 H 152/78 96 06/28/18 21:21 81 32 H 152/78 96 06/28/18 21:11 80 25 H 152/78 96 06/28/18 21:01 80 25 H 152/78 96 06/28/18 20:51 81 35 H 152/78 96 06/28/18 20:41 81 24 152/78 95 06/28/18 20:31 82 28 H 152/78 95 06/28/18 20:21 86 31 H 152/78 98 06/28/18 20:17 85 27 H 96 06/28/18 20:14 87 06/28/18 20:11 90 28 H 152/78 95 06/28/18 20:03 101 H 23 158/86 95 06/28/18 20:00 99.1 F 108 H 24 158/86 94 06/28/18 19:51 120 H 34 H 157/92 97 06/28/18 19:47 121 H 38 H 149/96 96 06/28/18 19:41 120 H 24 157/92 96 06/28/18 19:31 120 H 38 H 157/92 96 06/28/18 19:21 119 H 34 H 157/92 95 06/28/18 19:11 117 H 24 157/92 96 06/28/18 19:00 117 H 17 149/96 68 L 06/28/18 18:51 116 H 25 H 134/92 06/28/18 18:41 118 H 35 H 134/92 96 06/28/18 18:31 117 H 28 H 134/92 96 06/28/18 18:21 117 H 35 H 134/92 96 06/28/18 18:11 117 H 27 H 134/92 96 06/28/18 18:00 118 H 27 H 157/92 95 06/28/18 17:51 117 H 35 H 134/92 95 06/28/18 17:41 117 H 30 H 134/92 97 06/28/18 17:31 116 H 36 H 134/92 96 06/28/18 17:21 115 H 37 H 134/92 96 06/28/18 17:11 115 H 27 H 134/92 95 06/28/18 17:00 114 H 34 H 134/92 96 06/28/18 16:51 113 H 36 H 133/85 95 06/28/18 16:41 116 H 27 H 133/85 96 06/28/18 16:31 115 H 34 H 133/85 96 06/28/18 16:21 114 H 35 H 133/85 95 06/28/18 16:11 115 H 37 H 133/85 96 06/28/18 16:00 98.6 F 113 H 35 H 133/85 96 06/28/18 15:51 112 H 23 136/82 96 06/28/18 15:41 112 H 33 H 136/82 96 06/28/18 15:31 111 H 32 H 136/82 97 06/28/18 15:21 110 H 32 H 136/82 97 06/28/18 15:11 110 H 25 H 136/82 97 06/28/18 15:00 108 H 25 H 136/82 97 06/28/18 14:51 110 H 27 H 140/76 97 06/28/18 14:41 107 H 26 H 140/76 97 06/28/18 14:31 106 H 28 H 140/76 97 06/28/18 14:21 106 H 31 H 140/76 97 06/28/18 14:13 107 H 140/76 06/28/18 14:11 105 H 25 H 140/76 97 06/28/18 14:00 102 H 32 H 140/76 96 06/28/18 13:51 103 H 25 H 130/73 96 06/28/18 13:41 102 H 30 H 130/73 97 06/28/18 13:31 102 H 34 H 130/73 97 06/28/18 13:21 101 H 24 130/73 97 06/28/18 13:11 101 H 31 H 130/73 97 06/28/18 13:01 102 H 28 H 130/73 97 06/28/18 12:51 99 H 40 H 159/80 97 06/28/18 12:41 98 H 48 H 159/80 97 06/28/18 12:31 99 H 29 H 159/80 95 06/28/18 12:21 101 H 30 H 159/80 96 06/28/18 12:11 98 H 31 H 97 06/28/18 12:00 101.7 F H 100 H 29 H 159/80 97 06/28/18 11:51 102 H 24 165/88 96 06/28/18 11:41 103 H 33 H 165/88 97 06/28/18 11:31 107 H 33 H 165/88 97 06/28/18 11:21 102 H 31 H 165/88 97 06/28/18 11:11 100 H 28 H 165/88 97 06/28/18 11:00 96 H 28 H 165/88 96 06/28/18 10:51 97 H 22 166/90 97 06/28/18 10:41 97 H 32 H 166/90 97 06/28/18 10:31 107 H 19 166/90 98 06/28/18 10:21 92 H 25 H 166/90 97 06/28/18 10:11 93 H 28 H 166/90 97 - Physical Examination General: No Apparent Distress, Cachectic Cardiac: Positive: irregularly irregular Extremities: Absent: edema - Labs and Meds Coagulation 06/29/18 Range/Units 03:39 PT 23.9 H (12.2-14.9) Sec. INR 1.99 H (0.87-1.13) Comprehensive Metabolic Panel 06/29/18 Range/Units 03:39 Sodium 147 H (137-145) mmol/L Potassium 4.9 (3.6-5.0) mmol/L Chloride 110.6 H (98-107) mmol/L Carbon Dioxide 25 (22-30) mmol/L BUN 53 H (9-20) mg/dL Creatinine 2.3 H (0.8-1.5) mg/dL Glucose 551 H* (75-100) mg/dL Calcium 9.6 (8.4-10.2) mg/dL
[2018-06-29] MEDS ORDERED: INSULIN ASPART PROT SQ SCH ×2 (10:17→17:00)
[2018-06-29] MEDS ORDERED: ASPART SQ SCH ×2 (10:17→17:00)
--- NOTE | 2018-06-29 10:54 | Progress Note ---
Assessment and Plan Altered mental status, likely due to anoxic brain injury, Acute CVA - Patient was found lying in the floor, could be CVA versus seizure - carotid Dopplers, echo; unremarkable - MRI/MRA pending; showed right sided lacunar infarcts - Patient is on Keppra, atorvastatin and ASA -Patient is able to take care of his airways -neurology consult appreciated, EEG showed diffuse slowing, encephalopathy - repeat CT head as he is on coumadin for possible brain hemorrhage Seizure , likely from acute CVA - cont keppra, EEG showed diffuse slowing, encephalopathy History of A. fib on Coumadin - continued coumadin following admission, will hold until clears by neurology Hypertension, uncontrolled - increse BB, add norvasc - stop losartan, aldcatone and lasix for URBANO Diabetes mellitus, uncontrolled - Sliding-scale insulin, Accu-Chek, adjust his insulin dose, check a1c - iv fluid with NS Rhabdomyolysis, lactic acidosis - Patient is on IV fluids -recheck CPK Elevated troponin level - cardiology consult appreciated SIRS - on levaquin renally dosed URBANO likely due to vasomotor nephropathy - - stop losartan, aldcatone and lasix for URBANO, iv fluid with NS - renal US, nephrology consult Aspiration risk On NG tube feeding; will do bed side swallow evaluation and put him on diet DVT prophylaxis -SCD and now Disposition - continue MICU care Prognosis; poor. Brief History 72-year-old -[place] male with past medical history significant for hypertension, CAD status post CABG, chronic A. fib, diabetes mellitus, hyperlipidemia, prostate cancer was brought to the emergency department via EMS after he was found by his son lying in the floor around 1 AM in the morning. His son said he was lying the floor, lost bowel and bladder activity, drooling of saliva but no seizure activity or fascial palsy. In the emergency department patient has elevated lactic acid level, elevated CpK and mild leukocytosis. Patient was admitted to the floor for further evaluation and management with acute stroke protocol. Hospitalist Physical Patient is lethargic. with drooling saliva The patient appeared well nourished and normally developed. Vital signs as documented. Head exam is unremarkable. No scleral icterus . Neck is without jugular venous distension, thyromegaly, or carotid bruits. Lungs are clear to auscultation. Cardiac exam reveals regular rate and Rhythm. Abdominal exam reveals normal bowel sounds. Extremities are nonedematous and both femoral and pedal pulses are normal. 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: unable to follow commend Subjective Date of service: 06/29/18 Interval history: Patient seen and examined Unable to provide history Per RN more altered today discussed with family at bedside and updated Objective - Constitutional Vitals: Vital Signs - 12hr 06/28/18 06/28/18 06/28/18 23:01 23:11 23:21 Temperature Pulse Rate 88 89 89 Pulse Rate [ From Monitor] Respiratory 31 H 32 H 23 Rate Blood Pressure 152/78 152/78 152/78 O2 Sat by Pulse 94 94 94 Oximetry 06/28/18 06/28/18 06/28/18 23:31 23:41 23:51 Temperature Pulse Rate 92 H 91 H 93 H Pulse Rate [ From Monitor] Respiratory 23 24 32 H Rate Blood Pressure 152/78 152/78 152/78 O2 Sat by Pulse 93 99 99 Oximetry 06/28/18 06/29/18 06/29/18 23:56 00:00 00:11 Temperature 99 F Pulse Rate 94 H 94 H Pulse Rate [ From Monitor] Respiratory 32 H 23 Rate Blood Pressure 167/88 167/88 O2 Sat by Pulse 97 99 99 Oximetry 06/29/18 06/29/18 06/29/18 00:14 00:17 00:21 Temperature Pulse Rate 95 H 95 H Pulse Rate [ 96 H From Monitor] Respiratory 25 H 32 H Rate Blood Pressure 167/88 O2 Sat by Pulse 98 98 Oximetry 06/29/18 06/29/18 06/29/18 00:31 00:41 00:51 Temperature Pulse Rate 96 H 97 H 98 H Pulse Rate [ From Monitor] Respiratory 24 32 H 22 Rate Blood Pressure 163/82 163/82 163/82 O2 Sat by Pulse 98 98 98 Oximetry 06/29/18 06/29/18 06/29/18 01:01 01:10 01:21 Temperature Pulse Rate 99 H 89 78 Pulse Rate [ From Monitor] Respiratory 30 H 21 20 Rate Blood Pressure 163/82 156/84 163/82 O2 Sat by Pulse 98 99 100 Oximetry 06/29/18 06/29/18 06/29/18 01:31 01:41 01:51 Temperature Pulse Rate 76 75 74 Pulse Rate [ From Monitor] Respiratory 27 H 27 H 22 Rate Blood Pressure 163/82 163/82 156/84 O2 Sat by Pulse 100 100 99 Oximetry 06/29/18 06/29/18 06/29/18 02:01 02:11 02:21 Temperature Pulse Rate 74 75 74 Pulse Rate [ From Monitor] Respiratory 20 22 20 Rate Blood Pressure 156/84 156/84 156/84 O2 Sat by Pulse 99 99 99 Oximetry 06/29/18 06/29/18 06/29/18 02:31 02:41 02:51 Temperature Pulse Rate 76 76 75 Pulse Rate [ From Monitor] Respiratory 31 H 29 H 21 Rate Blood Pressure 156/84 156/84 156/84 O2 Sat by Pulse 100 99 99 Oximetry 06/29/18 06/29/18 06/29/18 03:01 03:11 03:21 Temperature Pulse Rate 76 74 76 Pulse Rate [ From Monitor] Respiratory 22 20 21 Rate Blood Pressure 156/84 156/84 156/84 O2 Sat by Pulse 99 99 99 Oximetry 06/29/18 06/29/18 06/29/18 03:31 03:41 03:51 Temperature Pulse Rate 76 77 78 Pulse Rate [ From Monitor] Respiratory 26 H 20 29 H Rate Blood Pressure 156/84 156/84 156/84 O2 Sat by Pulse 99 97 98 Oximetry 06/29/18 06/29/18 06/29/18 04:00 07:37 08:36 Temperature 99.6 F 97.8 F Pulse Rate 78 Pulse Rate [ 78 From Monitor] Respiratory 19 Rate Blood Pressure 153/78 O2 Sat by Pulse 98 98 Oximetry 06/29/18 06/29/18 06/29/18 10:09 10:10 10:12 Temperature Pulse Rate 114 H 110 H 102 H Pulse Rate [ From Monitor] Respiratory Rate Blood Pressure 160/92 160/92 160/92 O2 Sat by Pulse Oximetry - Labs CBC & Chem 7: 06/30/18 04:40 06/30/18 04:40 Labs: Abnormal lab results 06/28/18 06/28/18 06/28/18 Range/Units 09:21 11:40 17:38 PT (12.2-14.9) Sec. INR (0.87-1.13) Sodium (137-145) mmol/L Chloride (98-107) mmol/L BUN (9-20) mg/dL Creatinine (0.8-1.5) mg/dL Glucose (75-100) mg/dL POC Glucose 451 H 407 H 390 H (70-105) 06/28/18 06/29/18 06/29/18 Range/Units 23:28 03:10 03:15 PT (12.2-14.9) Sec. INR (0.87-1.13) Sodium (137-145) mmol/L Chloride (98-107) mmol/L BUN (9-20) mg/dL Creatinine (0.8-1.5) mg/dL Glucose (75-100) mg/dL POC Glucose 412 H > 500 H 273 H (70-105) 06/29/18 06/29/18 06/29/18 Range/Units 03:39 03:39 06:04 PT 23.9 H (12.2-14.9) Sec. INR 1.99 H (0.87-1.13) Sodium 147 H (137-145) mmol/L Chloride 110.6 H (98-107) mmol/L BUN 53 H (9-20) mg/dL Creatinine 2.3 H (0.8-1.5) mg/dL Glucose 551 H* (75-100) mg/dL POC Glucose 496 H (70-105) 06/29/18 Range/Units 08:40 PT (12.2-14.9) Sec. INR (0.87-1.13) Sodium (137-145) mmol/L Chloride (98-107) mmol/L BUN (9-20) mg/dL Creatinine (0.8-1.5) mg/dL Glucose (75-100) mg/dL POC Glucose 398 H (70-105)
[2018-06-29] MEDS ORDERED: NACL 0.45% 1000 ML 1,000 ML IV SCH (12:00)
[2018-06-29] MEDS: NORVASC PO SCH (12:48)
--- NOTE | 2018-06-29 12:49 | Cat Scan Report ---
CT HEAD WITHOUT CONTRAST: HISTORY: Altered mental status. TECHNIQUE: Sequential 2.5mm CT images. COMPARISON: 06/24/18. FINDINGS: Cerebral Parenchyma: A large area of sulcal effacement, hypoattenuation and edema has developed throughout the right cerebral hemisphere measuring up to 12.8 x 3.7 cm in axial plane. This has the appearance of a large subacute right MCA infarct. There is evidence for minimal petechial hemorrhage within the right MCA distribution but no evidence for large uncontained hemorrhage. Tiny chronic lacunar infarcts are identified in the right thalamus and left sterling. The remaining brain parenchyma is within normal limits. . Cerebellum: Within normal limits. Brainstem: Within normal limits. Ventricles: There is mild mass effect on the right lateral ventricle. There is minimal right to left midline shift measuring 3-4 mm at the level of the frontal horns. Ventricular size is within normal limits otherwise. Sella: Normal. Extra-axial spaces: Normal. Basal Cisterns: Normal. Intracranial Hemorrhage: None. Midline Shift: None. Calvarium: Normal. Sinuses: Normal. Mastoid Air Cells: Normal. Visualized Orbits: Normal. These findings were discussed with Dr. Day at 1240 hrs.
[2018-06-29] MEDS ORDERED: NACL 0.9% 500 ML 500 ML IV SCH (13:00)
--- NOTE | 2018-06-29 13:19 | Consultation ---
History of Present Illness - Reason for Consult Consult date: 06/29/18 acute renal failure, hypernatremia - History of Present Illness The patient is a 72 YO male with history significant for DM type 2, HTN, GERD, CAD s/p CABG, Paroxysmal A. fib, Hyperlipidemia and Prostate cancer who was brought to the [facility] ED via EMS after he was found by his son lying in the floor. Patient was not able to provide any history and there was no family member at the bedside. He was found incontinent of stool and urine, drooling of saliva but no seizure activity or facial palsy. In the emergency department patient had elevated lactic acid level, elevated CK and creatinine 1.6. Today his creatinine is 2.3 and Sodium 147. Patient admitted to the floor with Acute CVA. Nephrology was consulted for further evaluation and management. Past History Past Medical History: atrial fib, diabetes, hypertension, hyperlipidemia Past Surgical History: CABG Social history: smoking (smokes cigarretes but son was not sure how many), full code. denies: alcohol abuse, prescription drug abuse, IV drug use Family history: no significant family history Medications and Allergies Allergies Allergy/AdvReac Type Severity Reaction Status Date / Time nitroglycerin Allergy Severe Unknown Verified 01/16/16 17:45 Home Medications Medication Instructions Recorded Confirmed Last Taken Type Insulin Aspart Prot/Aspart(Nf) 25 unit SQ QAM 07/09/13 06/26/18 06/19/18 09:00 History [NovoLOG Mix 70/30 VIAL] Metformin HCl [Metformin] 1,000 mg PO BID 07/09/13 06/26/18 06/19/18 09:00 History Metoprolol Tartrate 25 mg PO BID 07/09/13 06/26/18 06/19/18 09:00 History Omeprazole 20 mg PO DAILY 07/09/13 06/26/18 06/19/18 09:00 History Furosemide [Lasix TAB] 40 mg PO QDAY #30 tablet 07/18/14 06/26/18 06/19/18 09:00 Rx Gabapentin [Neurontin] 300 mg PO BID capsule 07/18/14 06/26/18 06/19/18 09:00 Rx Losartan [Cozaar] 25 mg PO QDAY #30 tablet 07/18/14 06/26/18 06/19/18 09:00 Rx Spironolactone [Aldactone] 25 mg PO QDAY #30 tablet 07/18/14 06/26/18 06/19/18 09:00 Rx Warfarin [Coumadin] 5 mg PO DAILY@1700 tablet 07/18/14 06/26/18 06/19/18 09:00 Rx Ergocalciferol [Vitamin D2] 1 cap PO QWEEK 01/17/16 06/26/18 06/19/18 08:00 History Ipratropium/Albuter (Nf) 2 puff IH QID PRN 01/17/16 06/26/18 06/19/18 09:00 History [Combivent Inhaler] glipiZIDE [Glucotrol] 5 mg PO QDAY 01/17/16 06/26/18 06/19/18 09:00 History Active Meds: Active Medications Acetaminophen (Tylenol) 650 mg PO Q4H PRN PRN Reason: Pain, Mild (1-3) Last Admin: 06/29/18 00:46 Dose: 650 mg Documented by: Amlodipine Besylate (Norvasc) 10 mg PO QDAY [facility] Last Admin: 06/29/18 12:48 Dose: 10 mg Documented by: Lipase/Protease/Amylase (Pancremicah Dr 10,500 Unit) 1 each FEEDTUBE PRN PRN PRN Reason: For Clogged Feeding Tube Aspirin (Baby Aspirin) 81 mg PO QDAY [facility] Last Admin: 06/29/18 10:11 Dose: 81 mg Documented by: Atorvastatin Calcium (Lipitor) 40 mg PO QHS [facility] Last Admin: 06/28/18 21:08 Dose: 40 mg Documented by: Bisacodyl (Dulcolax) 10 mg LA QDAY PRN PRN Reason: Constipation Dextrose (D50w (25gm) Syringe) 50 ml IV PRN PRN PRN Reason: Hypoglycemia Gabapentin (Neurontin) 300 mg PO BID [facility] Last Admin: 06/29/18 10:11 Dose: 300 mg Documented by: Hydralazine HCl (Apresoline) 10 mg IV Q4H PRN PRN Reason: BP > 160/100 Last Admin: 06/27/18 20:39 Dose: 10 mg Documented by: Levofloxacin/Dextrose (Levaquin 750mg/150ml) 750 mg in 150 mls @ 100 mls/hr IV Q48H [facility]; Protocol Stop: 06/30/18 11:59 Last Admin: 06/28/18 11:43 Dose: 100 mls/hr Documented by: Sodium Chloride (Nacl 0.9% 500 Ml) 500 mls @ 50 mls/hr IV DIRECT MICHEL Insulin Human Isoph/Insulin Regular (Humulin 70/30) 25 unit SUB-Q BIDDIAB [facility] Last Admin: 06/29/18 11:10 Dose: 25 unit Documented by: Insulin Human Lispro (Humalog) 0 unit SUB-Q ACHS [facility]; Protocol Last Admin: 06/29/18 12:49 Dose: 10 unit Documented by: Levetiracetam (Keppra) 750 mg PO BID [facility] Last Admin: 06/29/18 10:09 Dose: 750 mg Documented by: Magnesium Hydroxide (Milk Of Magnesia) 30 ml PO Q4H PRN PRN Reason: Constipation Metoclopramide HCl (Reglan) 10 mg PO Q6H PRN PRN Reason: Nausea And Vomiting Metoprolol Tartrate (Lopressor) 100 mg PO BID [facility] Ondansetron HCl (Zofran) 4 mg IV Q8H PRN PRN Reason: Nausea And Vomiting Pantoprazole Sodium (Protonix) 20 mg PO QDAY [facility] Last Admin: 06/29/18 10:11 Dose: 20 mg Documented by: Promethazine HCl (Phenergan) 25 mg LA Q6H PRN PRN Reason: Nausea And Vomiting Simple Syrup (Simple Syrup) 15 ml FEEDTUBE PRN PRN PRN Reason: Hypoglycemia Simple Syrup (Simple Syrup) 30 ml FEEDTUBE PRN PRN PRN Reason: Hypoglycemia Sodium Bicarbonate (Sodium Bicarbonate) 325 mg FEEDTUBE PRN PRN PRN Reason: For Clogged Feeding Tube Sodium Chloride (Sodium Chloride Flush Syringe 10 Ml) 10 ml IV PRN PRN PRN Reason: LINE FLUSH Spironolactone (Aldactone) 25 mg PO QDAY [facility] Last Admin: 06/29/18 10:10 Dose: 25 mg Documented by: Review of Systems ROS unobtainable: due to mental status Exam - Vital Signs Vital signs: Vital Signs Temp Pulse Resp BP Pulse Ox 98.9 F 105 H 20 166/83 100 06/24/18 06:13 06/24/18 06:13 06/24/18 06:13 06/24/18 06:13 06/24/18 06:13 - General Appearance General appearance: well-developed, appears stated age, other (not in distress, NG feeding noted) EENT: ATNC, PERRL Neck: Present: neck supple, trachea midline Respiratory: Clear to Ascultation Heart: regular, S1S2, no murmurs Gastrointestinal: Absent: tenderness, distended Integumentary: no rash Neurologic: obtunded Musculoskeletal: Present: other (no edema) Results - Lab Results 06/27/18 04:47 06/29/18 03:39 Most recent lab results Calcium 9.6 mg/dL (8.4-10.2) 06/29/18 03:39 - Image Kidney/bladder ultrasound: pending Assessment and Plan 1. Acute kidney injury: Likely vasomotor [place]. Renal function continue to decline. Patient was on Losartan and Lasix, stopped now. Continue IV fluids. Urine studies and Renal US ordered. Monitor renal function. Avoid nephrotoxic agents. Meds dosage based on GFR. 2. FEN: Hypernatremia, 1/2 NS. Continue IV fluids. Tube feeding. 3. Acute CVA. 4. Encephalopathy: Likely due to anoxic brain injury. 5. Rhabdomyolysis: Continue IV fluids. Monitor CK levels. 6. Seizures. 7. H/o A. fib: On Coumadin. 8. Hypertension, uncontrolled: Meds adjusted, BP is improving. 9. Diabetes mellitus, uncontrolled. 10. Elevated troponin level: Followed by Cards. 11. SIRS.
--- NOTE | 2018-06-29 16:27 | Progress Note ---
Subjective Date of service: 06/29/18 Interval history: spoke to Dr. Day and went over the CT of the head and there is evidence of progression of the ischemic stroke this was to degree noted on the CTA of the right MCA which was nor seen disatlly proximal MCA was patint still suspect stroke from atrial fibrillation but agree with hild coumadin degree of edema noted s c/w right sided ischemic stroke Objective - Vital Sign Vital Signs - 12hr 06/29/18 06/29/18 06/29/18 04:31 04:41 04:51 Temperature Pulse Rate 80 81 81 Pulse Rate [ From Monitor] Respiratory 21 22 19 Rate Blood Pressure 153/78 153/78 153/78 O2 Sat by Pulse 98 98 98 Oximetry 06/29/18 06/29/18 06/29/18 05:01 05:11 05:21 Temperature Pulse Rate 83 83 84 Pulse Rate [ From Monitor] Respiratory 27 H 24 24 Rate Blood Pressure 153/78 153/78 153/78 O2 Sat by Pulse 98 98 98 Oximetry 06/29/18 06/29/18 06/29/18 05:31 05:41 05:51 Temperature Pulse Rate 84 91 H 87 Pulse Rate [ From Monitor] Respiratory 24 18 22 Rate Blood Pressure 153/78 153/78 153/78 O2 Sat by Pulse 98 98 98 Oximetry 06/29/18 06/29/18 06/29/18 06:00 06:11 06:21 Temperature Pulse Rate 87 88 89 Pulse Rate [ From Monitor] Respiratory 21 20 21 Rate Blood Pressure 153/78 153/78 153/78 O2 Sat by Pulse 98 98 98 Oximetry 06/29/18 06/29/18 06/29/18 06:31 06:41 06:51 Temperature Pulse Rate 89 90 92 H Pulse Rate [ From Monitor] Respiratory 26 H 28 H 29 H Rate Blood Pressure 153/78 153/78 153/78 O2 Sat by Pulse 99 98 98 Oximetry 06/29/18 06/29/18 06/29/18 07:01 07:10 07:21 Temperature Pulse Rate 91 H 91 H 91 H Pulse Rate [ From Monitor] Respiratory 22 22 22 Rate Blood Pressure 153/78 153/78 153/78 O2 Sat by Pulse 98 98 98 Oximetry 06/29/18 06/29/18 06/29/18 07:31 07:37 07:41 Temperature 97.8 F Pulse Rate 93 H 96 H Pulse Rate [ From Monitor] Respiratory 20 28 H Rate Blood Pressure 153/78 153/78 O2 Sat by Pulse 98 97 Oximetry 06/29/18 06/29/18 06/29/18 07:51 08:00 08:11 Temperature 98.4 F Pulse Rate 98 H 88 101 H Pulse Rate [ 101 H From Monitor] Respiratory 27 H 30 H 22 Rate Blood Pressure 153/78 167/97 167/97 O2 Sat by Pulse 98 100 98 Oximetry 06/29/18 06/29/18 06/29/18 08:21 08:31 08:36 Temperature Pulse Rate 102 H 104 H Pulse Rate [ From Monitor] Respiratory 27 H 22 Rate Blood Pressure 167/97 167/97 O2 Sat by Pulse 98 98 98 Oximetry 06/29/18 06/29/18 06/29/18 08:41 08:51 09:00 Temperature Pulse Rate 104 H 106 H 106 H Pulse Rate [ From Monitor] Respiratory 28 H 21 28 H Rate Blood Pressure 167/97 167/97 167/97 O2 Sat by Pulse 97 98 98 Oximetry 06/29/18 06/29/18 06/29/18 09:11 09:21 09:31 Temperature Pulse Rate 108 H 108 H 110 H Pulse Rate [ From Monitor] Respiratory 21 29 H 23 Rate Blood Pressure 167/97 167/97 167/97 O2 Sat by Pulse 97 98 98 Oximetry 06/29/18 06/29/18 06/29/18 09:41 09:51 10:01 Temperature Pulse Rate 106 H 109 H 120 H Pulse Rate [ From Monitor] Respiratory 22 26 H 21 Rate Blood Pressure 167/97 167/97 167/97 O2 Sat by Pulse 98 98 98 Oximetry 06/29/18 06/29/18 06/29/18 10:09 10:10 10:11 Temperature Pulse Rate 114 H 110 H 114 H Pulse Rate [ From Monitor] Respiratory 30 H Rate Blood Pressure 160/92 160/92 160/92 O2 Sat by Pulse 99 Oximetry 06/29/18 06/29/18 06/29/18 10:12 10:21 10:31 Temperature Pulse Rate 102 H 111 H 112 H Pulse Rate [ From Monitor] Respiratory 25 H 19 Rate Blood Pressure 160/92 160/92 160/92 O2 Sat by Pulse 98 99 Oximetry 06/29/18 06/29/18 06/29/18 10:41 10:51 11:01 Temperature Pulse Rate 93 H 86 79 Pulse Rate [ From Monitor] Respiratory 21 29 H 19 Rate Blood Pressure 160/92 160/92 160/92 O2 Sat by Pulse 99 97 98 Oximetry 06/29/18 06/29/18 06/29/18 11:11 11:21 11:31 Temperature Pulse Rate 80 80 80 Pulse Rate [ From Monitor] Respiratory 28 H 21 28 H Rate Blood Pressure 160/92 160/92 160/92 O2 Sat by Pulse 99 100 99 Oximetry 06/29/18 06/29/18 06/29/18 11:41 11:51 12:00 Temperature 98.4 F Pulse Rate 80 80 74 Pulse Rate [ 88 From Monitor] Respiratory 29 H 30 H 30 H Rate Blood Pressure 160/92 160/92 O2 Sat by Pulse 99 99 100 Oximetry 06/29/18 12:48 Temperature Pulse Rate 84 Pulse Rate [ From Monitor] Respiratory Rate Blood Pressure 151/89 O2 Sat by Pulse Oximetry - Laboratory Findings CBC and BMP: 06/27/18 04:47 06/29/18 03:39 Abnormal Lab Findings: Abnormal Labs 06/24/18 06/24/18 06/24/18 06:05 06:15 06:23 WBC 12.8 H Millard % (Auto) 11.3 H Millard # 1.5 H Seg Neutrophils % 74.3 H Seg Neutrophils # 9.5 H PT INR Sodium Chloride Carbon Dioxide BUN 30 H Creatinine 1.6 H Glucose 150 H POC Glucose Hemoglobin A1c Lactic Acid 2.70 H* AST 67 H Total Creatine Kinase 2694 H Troponin T 0.056 H Albumin 3.7 L HDL Cholesterol 63 H 06/24/18 06/24/18 06/24/18 08:37 11:43 13:20 WBC Millard % (Auto) Millard # Seg Neutrophils % Seg Neutrophils # PT 21.7 H INR 1.76 H Sodium Chloride Carbon Dioxide BUN Creatinine Glucose POC Glucose 147 H Hemoglobin A1c Lactic Acid 2.10 H* AST Total Creatine Kinase Troponin T Albumin HDL Cholesterol 06/24/18 06/24/18 06/25/18 16:23 21:55 05:05 WBC Millard % (Auto) 12.0 H Millard # 1.2 H Seg Neutrophils % Seg Neutrophils # PT INR Sodium Chloride Carbon Dioxide BUN Creatinine Glucose POC Glucose 129 H 141 H Hemoglobin A1c Lactic Acid AST Total Creatine Kinase Troponin T Albumin HDL Cholesterol 04/06/25/18 06/25/18 05:05 07:49 07:54 WBC Millard % (Auto) Millard # Seg Neutrophils % Seg Neutrophils # PT INR Sodium Chloride 110.8 H Carbon Dioxide 19 L BUN 29 H Creatinine Glucose 163 H POC Glucose 168 H Hemoglobin A1c Lactic Acid AST Total Creatine Kinase 1644 H Troponin T 0.071 H D Albumin HDL Cholesterol 06/25/18 06/25/18 06/25/18 11:41 17:02 21:07 WBC Millard % (Auto) Millard # Seg Neutrophils % Seg Neutrophils # PT INR Sodium Chloride Carbon Dioxide BUN Creatinine Glucose POC Glucose 175 H 192 H 187 H Hemoglobin A1c Lactic Acid AST Total Creatine Kinase Troponin T Albumin HDL Cholesterol 06/26/18 06/26/18 06/26/18 04:57 04:57 04:57 WBC Millard % (Auto) 12.6 H Millard # 1.4 H Seg Neutrophils % 70.3 H Seg Neutrophils # PT 21.1 H INR 1.70 H Sodium 148 H Chloride 111.9 H Carbon Dioxide 21 L BUN 32 H Creatinine Glucose 249 H POC Glucose Hemoglobin A1c Lactic Acid AST Total Creatine Kinase Troponin T Albumin HDL Cholesterol 06/26/18 06/26/18 06/26/18 08:48 11:38 16:33 WBC Millard % (Auto) Millard # Seg Neutrophils % Seg Neutrophils # PT INR Sodium Chloride Carbon Dioxide BUN Creatinine Glucose POC Glucose 253 H 269 H 239 H Hemoglobin A1c Lactic Acid AST Total Creatine Kinase Troponin T Albumin HDL Cholesterol 06/26/18 06/27/18 06/27/18 22:13 04:47 04:47 WBC 11.9 H Millard % (Auto) 12.4 H Millard # 1.5 H Seg Neutrophils % Seg Neutrophils # 7.9 H PT 20.6 H INR 1.65 H Sodium Chloride Carbon Dioxide BUN Creatinine Glucose POC Glucose 166 H Hemoglobin A1c Lactic Acid AST Total Creatine Kinase Troponin T Albumin HDL Cholesterol 06/27/18 06/27/18 06/27/18 04:47 08:18 12:24 WBC Millard % (Auto) Millard # Seg Neutrophils % Seg Neutrophils # PT INR Sodium 146 H Chloride 109.0 H Carbon Dioxide BUN 32 H Creatinine 1.6 H Glucose 299 H POC Glucose 343 H 329 H Hemoglobin A1c Lactic Acid AST Total Creatine Kinase Troponin T Albumin 3.1 L HDL Cholesterol 06/27/18 06/27/18 06/28/18 17:29 21:32 03:28 WBC Millard % (Auto) Millard # Seg Neutrophils % Seg Neutrophils # PT 19.3 H INR 1.52 H Sodium Chloride Carbon Dioxide BUN Creatinine Glucose POC Glucose 251 H 270 H Hemoglobin A1c Lactic Acid AST Total Creatine Kinase Troponin T Albumin HDL Cholesterol 06/28/18 06/28/18 06/28/18 03:28 08:05 09:21 WBC Millard % (Auto) Millard # Seg Neutrophils % Seg Neutrophils # PT INR Sodium 146 H Chloride 110.3 H Carbon Dioxide 21 L BUN 37 H Creatinine 1.7 H Glucose 446 H POC Glucose 442 H 451 H Hemoglobin A1c Lactic Acid AST Total Creatine Kinase Troponin T Albumin HDL Cholesterol 06/28/18 06/28/18 06/28/18 11:40 17:38 23:28 WBC Millard % (Auto) Millard # Seg Neutrophils % Seg Neutrophils # PT INR Sodium Chloride Carbon Dioxide BUN Creatinine Glucose POC Glucose 407 H 390 H 412 H Hemoglobin A1c Lactic Acid AST Total Creatine Kinase Troponin T Albumin HDL Cholesterol 06/29/18 06/29/18 06/29/18 03:10 03:15 03:39 WBC Millard % (Auto) Millard # Seg Neutrophils % Seg Neutrophils # PT 23.9 H INR 1.99 H Sodium Chloride Carbon Dioxide BUN Creatinine Glucose POC Glucose > 500 H 273 H Hemoglobin A1c Lactic Acid AST Total Creatine Kinase Troponin T Albumin HDL Cholesterol 06/29/18 06/29/18 06/29/18 03:39 06:04 08:40 WBC Millard % (Auto) Millard # Seg Neutrophils % Seg Neutrophils # PT INR Sodium 147 H Chloride 110.6 H Carbon Dioxide BUN 53 H Creatinine 2.3 H Glucose 551 H* POC Glucose 496 H 398 H Hemoglobin A1c Lactic Acid AST Total Creatine Kinase Troponin T Albumin HDL Cholesterol 06/29/18 06/29/18 10:41 11:26 WBC Millard % (Auto) Millard # Seg Neutrophils % Seg Neutrophils # PT INR Sodium Chloride Carbon Dioxide BUN Creatinine Glucose POC Glucose 432 H Hemoglobin A1c 9.8 H Lactic Acid AST Total Creatine Kinase Troponin T Albumin HDL Cholesterol
--- NOTE | 2018-06-29 17:15 | Progress Note ---
Subjective Date of service: 06/29/18 Interval history: dictated an extensive note on the recent CT of head and change in condition.... I can clearly see the ICA of the right hemisphere patent on the MRA and the acute stroke likely earlier today is very much like proximal right ICA oclusion as opposed to distal MCA gievn the bleeding into the ischemic infacrt not candidate for catheter based Tpa ( endovascular catheter clot extraction).... basically put coumadin not always effective in stroke prevention from embolus even despite therapeutic INR .... called and spoke to Dr. Day about management Objective - Vital Sign Vital Signs - 12hr 06/29/18 06/29/18 06/29/18 05:11 05:21 05:31 Temperature Pulse Rate 83 84 84 Pulse Rate [ From Monitor] Respiratory 24 24 24 Rate Blood Pressure 153/78 153/78 153/78 O2 Sat by Pulse 98 98 98 Oximetry 06/29/18 06/29/18 06/29/18 05:41 05:51 06:00 Temperature Pulse Rate 91 H 87 87 Pulse Rate [ From Monitor] Respiratory 18 22 21 Rate Blood Pressure 153/78 153/78 153/78 O2 Sat by Pulse 98 98 98 Oximetry 06/29/18 06/29/18 06/29/18 06:11 06:21 06:31 Temperature Pulse Rate 88 89 89 Pulse Rate [ From Monitor] Respiratory 20 21 26 H Rate Blood Pressure 153/78 153/78 153/78 O2 Sat by Pulse 98 98 99 Oximetry 06/29/18 06/29/18 06/29/18 06:41 06:51 07:01 Temperature Pulse Rate 90 92 H 91 H Pulse Rate [ From Monitor] Respiratory 28 H 29 H 22 Rate Blood Pressure 153/78 153/78 153/78 O2 Sat by Pulse 98 98 98 Oximetry 06/29/18 06/29/18 06/29/18 07:10 07:21 07:31 Temperature Pulse Rate 91 H 91 H 93 H Pulse Rate [ From Monitor] Respiratory 22 22 20 Rate Blood Pressure 153/78 153/78 153/78 O2 Sat by Pulse 98 98 98 Oximetry 06/29/18 06/29/18 06/29/18 07:37 07:41 07:51 Temperature 97.8 F Pulse Rate 96 H 98 H Pulse Rate [ From Monitor] Respiratory 28 H 27 H Rate Blood Pressure 153/78 153/78 O2 Sat by Pulse 97 98 Oximetry 06/29/18 06/29/18 06/29/18 08:00 08:11 08:21 Temperature 98.4 F Pulse Rate 88 101 H 102 H Pulse Rate [ 101 H From Monitor] Respiratory 30 H 22 27 H Rate Blood Pressure 167/97 167/97 167/97 O2 Sat by Pulse 100 98 98 Oximetry 06/29/18 06/29/18 06/29/18 08:31 08:36 08:41 Temperature Pulse Rate 104 H 104 H Pulse Rate [ From Monitor] Respiratory 22 28 H Rate Blood Pressure 167/97 167/97 O2 Sat by Pulse 98 98 97 Oximetry 06/29/18 06/29/18 06/29/18 08:51 09:00 09:11 Temperature Pulse Rate 106 H 106 H 108 H Pulse Rate [ From Monitor] Respiratory 21 28 H 21 Rate Blood Pressure 167/97 167/97 167/97 O2 Sat by Pulse 98 98 97 Oximetry 06/29/18 06/29/18 06/29/18 09:21 09:31 09:41 Temperature Pulse Rate 108 H 110 H 106 H Pulse Rate [ From Monitor] Respiratory 29 H 23 22 Rate Blood Pressure 167/97 167/97 167/97 O2 Sat by Pulse 98 98 98 Oximetry 06/29/18 06/29/18 06/29/18 09:51 10:01 10:09 Temperature Pulse Rate 109 H 120 H 114 H Pulse Rate [ From Monitor] Respiratory 26 H 21 Rate Blood Pressure 167/97 167/97 160/92 O2 Sat by Pulse 98 98 Oximetry 06/29/18 06/29/18 06/29/18 10:10 10:11 10:12 Temperature Pulse Rate 110 H 114 H 102 H Pulse Rate [ From Monitor] Respiratory 30 H Rate Blood Pressure 160/92 160/92 160/92 O2 Sat by Pulse 99 Oximetry 06/29/18 06/29/18 06/29/18 10:21 10:31 10:41 Temperature Pulse Rate 111 H 112 H 93 H Pulse Rate [ From Monitor] Respiratory 25 H 19 21 Rate Blood Pressure 160/92 160/92 160/92 O2 Sat by Pulse 98 99 99 Oximetry 06/29/18 06/29/18 06/29/18 10:51 11:01 11:11 Temperature Pulse Rate 86 79 80 Pulse Rate [ From Monitor] Respiratory 29 H 19 28 H Rate Blood Pressure 160/92 160/92 160/92 O2 Sat by Pulse 97 98 99 Oximetry 06/29/18 06/29/18 06/29/18 11:21 11:31 11:41 Temperature Pulse Rate 80 80 80 Pulse Rate [ From Monitor] Respiratory 21 28 H 29 H Rate Blood Pressure 160/92 160/92 160/92 O2 Sat by Pulse 100 99 99 Oximetry 06/29/18 06/29/18 06/29/18 11:51 12:00 12:48 Temperature 98.4 F Pulse Rate 80 74 84 Pulse Rate [ 88 From Monitor] Respiratory 30 H 30 H Rate Blood Pressure 160/92 151/89 O2 Sat by Pulse 99 100 Oximetry - Laboratory Findings CBC and BMP: 06/27/18 04:47 06/29/18 03:39 Abnormal Lab Findings: Abnormal Labs 06/24/18 06/24/18 06/24/18 06:05 06:15 06:23 WBC 12.8 H [place] % (Auto) 11.3 H [place] # 1.5 H Seg Neutrophils % 74.3 H Seg Neutrophils # 9.5 H PT INR Sodium Chloride Carbon Dioxide BUN 30 H Creatinine 1.6 H Glucose 150 H POC Glucose Hemoglobin A1c Lactic Acid 2.70 H* AST 67 H Total Creatine Kinase 2694 H Troponin T 0.056 H Albumin 3.7 L HDL Cholesterol 63 H 06/24/18 06/24/18 06/24/18 08:37 11:43 13:20 WBC [place] % (Auto) [place] # Seg Neutrophils % Seg Neutrophils # PT 21.7 H INR 1.76 H Sodium Chloride Carbon Dioxide BUN Creatinine Glucose POC Glucose 147 H Hemoglobin A1c Lactic Acid 2.10 H* AST Total Creatine Kinase Troponin T Albumin HDL Cholesterol 06/24/18 06/24/18 06/25/18 16:23 21:55 05:05 WBC [place] % (Auto) 12.0 H [place] # 1.2 H Seg Neutrophils % Seg Neutrophils # PT INR Sodium Chloride Carbon Dioxide BUN Creatinine Glucose POC Glucose 129 H 141 H Hemoglobin A1c Lactic Acid AST Total Creatine Kinase Troponin T Albumin HDL Cholesterol 06/25/18 06/25/18 06/25/18 05:05 07:49 07:54 WBC [place] % (Auto) [place] # Seg Neutrophils % Seg Neutrophils # PT INR Sodium Chloride 110.8 H Carbon Dioxide 19 L BUN 29 H Creatinine Glucose 163 H POC Glucose 168 H Hemoglobin A1c Lactic Acid AST Total Creatine Kinase 1644 H Troponin T 0.071 H D Albumin HDL Cholesterol 06/25/18 06/25/18 06/25/18 11:41 17:02 21:07 WBC [place] % (Auto) [place] # Seg Neutrophils % Seg Neutrophils # PT INR Sodium Chloride Carbon Dioxide BUN Creatinine Glucose POC Glucose 175 H 192 H 187 H Hemoglobin A1c Lactic Acid AST Total Creatine Kinase Troponin T Albumin HDL Cholesterol 06/26/18 06/26/18 06/26/18 04:57 04:57 04:57 WBC [place] % (Auto) 12.6 H [place] # 1.4 H Seg Neutrophils % 70.3 H Seg Neutrophils # PT 21.1 H INR 1.70 H Sodium 148 H Chloride 111.9 H Carbon Dioxide 21 L BUN 32 H Creatinine Glucose 249 H POC Glucose Hemoglobin A1c Lactic Acid AST Total Creatine Kinase Troponin T Albumin HDL Cholesterol 06/26/18 06/26/18 06/26/18 08:48 11:38 16:33 WBC [place] % (Auto) [place] # Seg Neutrophils % Seg Neutrophils # PT INR Sodium Chloride Carbon Dioxide BUN Creatinine Glucose POC Glucose 253 H 269 H 239 H Hemoglobin A1c Lactic Acid AST Total Creatine Kinase Troponin T Albumin HDL Cholesterol 06/26/18 06/27/18 06/27/18 22:13 04:47 04:47 WBC 11.9 H [place] % (Auto) 12.4 H [place] # 1.5 H Seg Neutrophils % Seg Neutrophils # 7.9 H PT 20.6 H INR 1.65 H Sodium Chloride Carbon Dioxide BUN Creatinine Glucose POC Glucose 166 H Hemoglobin A1c Lactic Acid AST Total Creatine Kinase Troponin T Albumin HDL Cholesterol 06/27/18 06/27/18 06/27/18 04:47 08:18 12:24 WBC [place] % (Auto) [place] # Seg Neutrophils % Seg Neutrophils # PT INR Sodium 146 H Chloride 109.0 H Carbon Dioxide BUN 32 H Creatinine 1.6 H Glucose 299 H POC Glucose 343 H 329 H Hemoglobin A1c Lactic Acid AST Total Creatine Kinase Troponin T Albumin 3.1 L HDL Cholesterol 06/27/18 06/27/18 06/28/18 17:29 21:32 03:28 WBC [place] % (Auto) [place] # Seg Neutrophils % Seg Neutrophils # PT 19.3 H INR 1.52 H Sodium Chloride Carbon Dioxide BUN Creatinine Glucose POC Glucose 251 H 270 H Hemoglobin A1c Lactic Acid AST Total Creatine Kinase Troponin T Albumin HDL Cholesterol 06/28/18 06/28/18 06/28/18 03:28 08:05 09:21 WBC [place] % (Auto) [place] # Seg Neutrophils % Seg Neutrophils # PT INR Sodium 146 H Chloride 110.3 H Carbon Dioxide 21 L BUN 37 H Creatinine 1.7 H Glucose 446 H POC Glucose 442 H 451 H Hemoglobin A1c Lactic Acid AST Total Creatine Kinase Troponin T Albumin HDL Cholesterol 06/28/18 06/28/18 06/28/18 11:40 17:38 23:28 WBC [place] % (Auto) [place] # Seg Neutrophils % Seg Neutrophils # PT INR Sodium Chloride Carbon Dioxide BUN Creatinine Glucose POC Glucose 407 H 390 H 412 H Hemoglobin A1c Lactic Acid AST Total Creatine Kinase Troponin T Albumin HDL Cholesterol 06/29/18 06/29/18 06/29/18 03:10 03:15 03:39 WBC [place] % (Auto) [place] # Seg Neutrophils % Seg Neutrophils # PT 23.9 H INR 1.99 H Sodium Chloride Carbon Dioxide BUN Creatinine Glucose POC Glucose > 500 H 273 H Hemoglobin A1c Lactic Acid AST Total Creatine Kinase Troponin T Albumin HDL Cholesterol 06/29/18 06/29/18 06/29/18 03:39 06:04 08:40 WBC [place] % (Auto) [place] # Seg Neutrophils % Seg Neutrophils # PT INR Sodium 147 H Chloride 110.6 H Carbon Dioxide BUN 53 H Creatinine 2.3 H Glucose 551 H* POC Glucose 496 H 398 H Hemoglobin A1c Lactic Acid AST Total Creatine Kinase Troponin T Albumin HDL Cholesterol 06/29/18 06/29/18 10:41 11:26 WBC [place] % (Auto) [place] # Seg Neutrophils % Seg Neutrophils # PT INR Sodium Chloride Carbon Dioxide BUN Creatinine Glucose POC Glucose 432 H Hemoglobin A1c 9.8 H Lactic Acid AST Total Creatine Kinase Troponin T Albumin HDL Cholesterol
[2018-06-29] MEDS ORDERED: [UNRECOGNIZED DRUG - OTHER] IV ONE (17:16)
--- NOTE | 2018-06-29 18:02 | Event Note ---
Date: 06/29/[address] head with Radiologist and neurologist New evolving Right MCA CVA Will transfer the patient to ICU for close monitoring Per Neurology will be placed on 3% NS to prevent brain swelling and herniation closely monitor for airway, updated family at bedside
[2018-06-29 18:41] LABS: Creatinine,Urine 69.3 mg/dL (0.1-20.0)
[2018-06-30 05:25] LABS: Hematocrit 44.9 % (35.5-45.6); Hemoglobin 14.5 gm/dl (11.8-15.2); Mean Corpuscular HGB Conc 32 % (32-34); Mean Corpuscular Volume 92 fl (84-94); Platelet Count 212 K/mm3 (140-440); Red Blood Count 4.87 M/mm3 (3.65-5.03); Red Cell Distribution Width 14.5 % (13.2-15.2)
[2018-06-30 05:30] LABS: Calcium 9.7 mg/dL (8.4-10.2); INR 2.04 (0.87-1.13)
--- NOTE | 2018-06-30 06:45 | XRay Report ---
PROCEDURE: XR CHEST 1V AP TECHNIQUE: A portable upright view the chest was obtained. HISTORY: SOB AND FEVER COMPARISONS: 06/26/2018 FINDINGS: The heart size is normal. There are sternotomy sutures. The lungs are not congested. There are no acu te infiltrates or effusions. The feeding tube is well-seated in the stomach. The skeletal structures do not show any acute changes. IMPRESSION: No acute cardiopulmonary process.. This document is electronically signed by Satya Pastor MD., June 30 2018 06:43:02 AM ET
[2018-06-30 07:51] LABS: Anisocytosis 1+; Band Neutrophils # (Manual) 0.4 K/mm3; Basophils % (Manual) 0 % (0.0-1.8); Total Cells Counted 100
[2018-06-30] MEDS: LOPRESSOR PO SCH ×2 (09:26→21:16)
[2018-06-30] MEDS: BABY ASPIRIN PO SCH (09:26)
[2018-06-30] MEDS: PROTONIX PO SCH (09:27)
[2018-06-30] MEDS: KEPPRA PO SCH ×2 (09:27→21:15)
[2018-06-30] MEDS: NEURONTIN PO SCH ×2 (09:27→21:16)
[2018-06-30] MEDS: NORVASC PO SCH (09:27)
[2018-06-30] MEDS: HumaLOG SUB-Q SCH ×4 (09:36→21:17)
--- NOTE | 2018-06-30 09:38 | Progress Note ---
Assessment and Plan 1. Acute kidney injury: Likely vasomotor [place]. Renal function slightly better. Renal US was negative for hydro. Monitor renal function. Avoid nephrotoxic agents. Meds dosage based on GFR. 2. FEN: Hypernatremia, likely from Mannitol. On Tube feeding. 3. Acute CVA. 4. Encephalopathy: Likely due to anoxic brain injury. 5. Rhabdomyolysis: Improved. 6. Seizures. 7. H/o A. fib. 8. Hypertension, uncontrolled: BP is better. 9. Diabetes mellitus, uncontrolled. 10. Elevated troponin level: Followed by Cards. 11. SIRS. D/w his son at the bedside. Subjective Date of service: 06/30/18 Interval history: Patient was seen and examined at the bedside. Objective - Vital Signs Vital signs: Vital Signs - 12hr 06/30/18 06/30/18 06/30/18 00:00 03:15 03:21 Temperature 100.2 F H 100.6 F H Pulse Rate 110 H 109 H Pulse Rate [ 113 H From Monitor] Respiratory 28 H 35 H Rate Blood Pressure O2 Sat by Pulse 100 99 Oximetry 06/30/18 06/30/18 06/30/18 03:31 03:41 03:51 Temperature Pulse Rate 114 H 98 H 97 H Pulse Rate [ From Monitor] Respiratory 31 H 37 H 30 H Rate Blood Pressure 149/81 O2 Sat by Pulse 99 99 99 Oximetry 06/30/18 06/30/18 06/30/18 04:00 04:11 04:21 Temperature Pulse Rate 102 H 98 H 111 H Pulse Rate [ 129 H From Monitor] Respiratory 26 H 20 19 Rate Blood Pressure 135/69 135/69 135/69 O2 Sat by Pulse 97 98 99 Oximetry 06/30/18 06/30/18 06/30/18 04:31 04:41 04:51 Temperature Pulse Rate 135 H 120 H 105 H Pulse Rate [ From Monitor] Respiratory 29 H 26 H 43 H Rate Blood Pressure 135/69 135/69 135/69 O2 Sat by Pulse 98 98 98 Oximetry 06/30/18 06/30/18 06/30/18 05:01 05:11 05:21 Temperature Pulse Rate 111 H 115 H 113 H Pulse Rate [ From Monitor] Respiratory 31 H 24 27 H Rate Blood Pressure 144/78 144/78 144/78 O2 Sat by Pulse 96 98 98 Oximetry 06/30/18 06/30/1806/30/19 05:31 05:41 05:51 Temperature Pulse Rate 113 H 120 H 123 H Pulse Rate [ From Monitor] Respiratory 32 H 31 H 25 H Rate Blood Pressure 144/78 144/78 144/78 O2 Sat by Pulse 98 99 99 Oximetry 06/30/18 06/30/18 06/30/18 06:01 06:11 06:21 Temperature Pulse Rate 129 H 116 H 122 H Pulse Rate [ From Monitor] Respiratory 32 H 25 H 24 Rate Blood Pressure 130/85 130/85 130/85 O2 Sat by Pulse 97 99 98 Oximetry 06/30/18 06/30/18 06/30/18 06:30 06:41 09:27 Temperature Pulse Rate 112 H 136 H 120 H Pulse Rate [ From Monitor] Respiratory 30 H 24 Rate Blood Pressure 130/85 130/85 160/72 O2 Sat by Pulse 99 98 Oximetry - General Appearance General appearance: well-developed, appears stated age, other (not in distress, NG feeding tube noted) EENT: ATNC, PERRL Neck: supple Respiratory: Present: Clear to Ascultation Cardiology: irregularly irregular, S1S2 Gastrointestinal: normoactive bowel sounds, no tenderness, no distended Integumentary: no rash, warm and dry Neurologic: obtunded Musculoskeletal: other (no edema) - Lab 06/30/18 04:40 06/30/18 04:40 Most recent lab results Calcium 9.7 mg/dL (8.4-10.2) 06/30/18 04:40 Phosphorus 3.00 mg/dL (2.5-4.5) 06/30/18 04:40 Magnesium 2.70 mg/dL (1.7-2.3) H 06/30/18 04:40 Urine Creatinine 69.3 mg/dL (0.1-20.0) H 06/29/18 17:40 Urine Sodium 89 mmol/L 06/29/18 17:40 Medications & Allergies - Medications Allergies/Adverse Reactions: Allergies nitroglycerin Allergy (Severe, Verified 01/16/16 17:45) Unknown Home Medications: Home Medications Medication Instructions Recorded Confirmed Last Taken Type Insulin Aspart Prot/Aspart(Nf) 25 unit SQ QAM 07/09/13 06/26/18 06/19/18 09:00 History [NovoLOG Mix 70/30 VIAL] Metformin HCl [Metformin] 1,000 mg PO BID 07/09/13 06/26/18 06/19/18 09:00 History Metoprolol Tartrate 25 mg PO BID 07/09/13 06/26/18 06/19/18 09:00 History Omeprazole 20 mg PO DAILY 07/09/13 06/26/18 06/19/18 09:00 History Furosemide [Lasix TAB] 40 mg PO QDAY #30 tablet 07/18/14 06/26/18 06/19/18 09:00 Rx Gabapentin [Neurontin] 300 mg PO BID capsule 07/18/14 06/26/18 06/19/18 09:00 Rx Losartan [Cozaar] 25 mg PO QDAY #30 tablet 07/18/14 06/26/18 06/19/18 09:00 Rx Spironolactone [Aldactone] 25 mg PO QDAY #30 tablet 07/18/14 06/26/18 06/19/18 09:00 Rx Warfarin [Coumadin] 5 mg PO DAILY@1700 tablet 07/18/14 06/26/18 06/19/18 09:00 Rx Ergocalciferol [Vitamin D2] 1 cap PO QWEEK 01/17/16 06/26/18 06/19/18 08:00 History Ipratropium/Albuter (Nf) 2 puff IH QID PRN 01/17/16 06/26/18 06/19/18 09:00 History [Combivent Inhaler] glipiZIDE [Glucotrol] 5 mg PO QDAY 01/17/16 06/26/18 06/19/18 09:00 History Active Medications: Generic Name Dose Route Start Last Admin Trade Name Freq PRN Reason Stop Dose Admin Acetaminophen 650 mg 06/24/18 08:27 06/29/18 20:39 Tylenol PO 650 mg Q4H PRN Administration Pain, Mild (1-3) Amlodipine Besylate 10 mg 06/29/18 11:00 06/30/18 09:27 Norvasc PO 10 mg QDAY MICHEL Administration Lipase/Protease/Amylase 1 each 06/25/18 12:[address] 10,500 Unit FEEDTUBE PRN PRN For Clogged Feeding Tube Aspirin 81 mg 06/29/18 10:00 06/30/18 09:26 Baby Aspirin PO 81 mg QDAY MICHEL Administration Atorvastatin Calcium 40 mg 06/24/18 22:00 06/29/18 21:12 Lipitor PO 40 mg QHS MICHEL Administration Bisacodyl 10 mg 06/24/18 08:27 Dulcolax AL QDAY PRN Constipation Dextrose 50 ml 06/24/18 08:29 D50w (25gm) Syringe IV PRN PRN Hypoglycemia Gabapentin 300 mg 06/25/18 10:00 06/30/18 09:27 Neurontin PO 300 mg BID MICHEL Administration Hydralazine HCl 10 mg 06/27/18 08:09 06/27/18 20:39 Apresoline IV 10 mg Q4H PRN Administration BP > 160/100 Levofloxacin/Dextrose 750 mg in 150 mls @ 100 mls/hr 06/26/18 12:00 06/28/18 11:43 Levaquin 750mg/150ml IV 06/30/18 11:59 100 mls/hr Q48H MICHEL Administration Protocol Sodium Chloride 500 mls @ 50 mls/hr 06/29/18 13:00 06/29/18 16:14 Nacl 0.9% 500 Ml IV 50 mls/hr DIRECT MICHEL Administration Insulin Human Isoph/Insulin Regular 25 unit 06/29/18 11:00 06/29/18 16:45 Humulin 70/30 SUB-Q 25 unit BIDDIAB MICHEL Administration Insulin Human Lispro 0 unit 06/24/18 11:30 06/29/18 21:10 Humalog SUB-Q 3 unit ACHS MICHEL Administration Protocol Levetiracetam 750 mg 06/27/18 10:00 06/30/18 09:27 Keppra PO 750 mg BID MICHEL Administration Magnesium Hydroxide 30 ml 06/24/18 08:27 Milk Of Magnesia PO Q4H PRN Constipation Metoclopramide HCl 10 mg 06/24/18 08:27 Reglan PO Q6H PRN Nausea And Vomiting Metoprolol Tartrate 100 mg 06/29/18 11:00 06/30/18 09:26 Lopressor PO 100 mg BID MICHEL Administration Ondansetron HCl 4 mg 06/24/18 08:27 Zofran IV Q8H PRN Nausea And Vomiting Pantoprazole Sodium 20 mg 06/25/18 10:00 06/30/18 09:27 Protonix PO 20 mg QDAY MICHEL Administration Promethazine HCl 25 mg 06/24/18 08:27 Phenergan AL Q6H PRN Nausea And Vomiting Simple Syrup 15 ml 06/25/18 12:55 Simple Syrup FEEDTUBE PRN PRN Hypoglycemia Simple Syrup 30 ml 06/25/18 12:55 Simple Syrup FEEDTUBE PRN PRN Hypoglycemia Sodium Bicarbonate 325 mg 06/25/18 12:55 Sodium Bicarbonate FEEDTUBE PRN PRN For Clogged Feeding Tube Sodium Chloride 10 ml 06/24/18 08:27 Sodium Chloride Flush Syringe 10 Ml IV PRN PRN LINE FLUSH Sodium Polystyrene Sulfonate 30 gm 06/30/18 09:37 Kionex AL 06/30/18 09:38 ONCE ONE
[2018-06-30] MEDS ORDERED: KIONEX PR ONE (10:00)
--- NOTE | 2018-06-30 10:28 | Consultation ---
History of Present Illness Consult date: 06/30/18 Reason for consult: other (CVA) History of present illness: Called to evaluate case of a 72-year-old -[place] male, which have been told was transferred to the ICU due to history of progressive stroke. Currently alone in room, information obtained from chart review. Patient unable to provide history. Per notes, he was admitted after past medical history of seizure who was found down , incontinent and found to have elevated CK and lactic acid. Initially reported by neurology has confused, apparently deteriorated on the floor and became stuporous. He has prior history of stroke according to the transfer notes. Past History Past Medical History: atrial fib, diabetes, hypertension, hyperlipidemia Past Surgical History: CABG Social history: smoking (smokes cigarretes but son was not sure how many), full code. denies: alcohol abuse, prescription drug abuse, IV drug use Family history: no significant family history Medications and Allergies Allergies Allergy/AdvReac Type Severity Reaction Status Date / Time nitroglycerin Allergy Severe Unknown Verified 01/16/16 17:45 Home Medications Medication Instructions Recorded Confirmed Last Taken Type Insulin Aspart Prot/Aspart(Nf) 25 unit SQ QAM 07/09/13 06/26/18 06/19/18 09:00 History [NovoLOG Mix 70/30 VIAL] Metformin HCl [Metformin] 1,000 mg PO BID 07/09/13 06/26/18 06/19/18 09:00 History Metoprolol Tartrate 25 mg PO BID 07/09/13 06/26/18 06/19/18 09:00 History Omeprazole 20 mg PO DAILY 07/09/13 06/26/18 06/19/18 09:00 History Furosemide [Lasix TAB] 40 mg PO QDAY #30 tablet 07/18/14 06/26/18 06/19/18 09:00 Rx Gabapentin [Neurontin] 300 mg PO BID capsule 07/18/14 06/26/18 06/19/18 09:00 Rx Losartan [Cozaar] 25 mg PO QDAY #30 tablet 07/18/14 06/26/18 06/19/18 09:00 Rx Spironolactone [Aldactone] 25 mg PO QDAY #30 tablet 07/18/14 06/26/18 06/19/18 09:00 Rx Warfarin [Coumadin] 5 mg PO DAILY@1700 tablet 07/18/14 06/26/18 06/19/18 09:00 Rx Ergocalciferol [Vitamin D2] 1 cap PO QWEEK 01/17/16 06/26/18 06/19/18 08:00 History Ipratropium/Albuter (Nf) 2 puff IH QID PRN 01/17/16 06/26/18 06/19/18 09:00 History [Combivent Inhaler] glipiZIDE [Glucotrol] 5 mg PO QDAY 01/17/16 06/26/18 06/19/18 09:00 History Active Meds: Active Medications Acetaminophen (Tylenol) 650 mg PO Q4H PRN PRN Reason: Pain, Mild (1-3) Last Admin: 06/29/18 20:39 Dose: 650 mg Documented by: Amlodipine Besylate (Norvasc) 10 mg PO QDAY [facility] Last Admin: 06/30/18 09:27 Dose: 10 mg Documented by: Lipase/Protease/Amylase (Eh Perkins 10,500 Unit) 1 each FEEDTUBE PRN PRN PRN Reason: For Clogged Feeding Tube Aspirin (Baby Aspirin) 81 mg PO QDAY [facility] Last Admin: 06/30/18 09:26 Dose: 81 mg Documented by: Atorvastatin Calcium (Lipitor) 40 mg PO QHS [facility] Last Admin: 06/29/18 21:12 Dose: 40 mg Documented by: Bisacodyl (Dulcolax) 10 mg NV QDAY PRN PRN Reason: Constipation Dextrose (D50w (25gm) Syringe) 50 ml IV PRN PRN PRN Reason: Hypoglycemia Gabapentin (Neurontin) 300 mg PO BID [facility] Last Admin: 06/30/18 09:27 Dose: 300 mg Documented by: Hydralazine HCl (Apresoline) 10 mg IV Q4H PRN PRN Reason: BP > 160/100 Last Admin: 06/27/18 20:39 Dose: 10 mg Documented by: Levofloxacin/Dextrose (Levaquin 750mg/150ml) 750 mg in 150 mls @ 100 mls/hr IV Q48H [facility]; Protocol Stop: 06/30/18 11:59 Last Admin: 06/28/18 11:43 Dose: 100 mls/hr Documented by: Sodium Chloride (Nacl 0.9% 500 Ml) 500 mls @ 50 mls/hr IV DIRECT [facility] Last Admin: 06/29/18 16:14 Dose: 50 mls/hr Documented by: Insulin Human Isoph/Insulin Regular (Humulin 70/30) 25 unit SUB-Q BIDDIAB [facility] Last Admin: 06/30/18 09:37 Dose: 25 unit Documented by: Insulin Human Lispro (Humalog) 0 unit SUB-Q ACHS [facility]; Protocol Last Admin: 06/30/18 09:36 Dose: 6 unit Documented by: Levetiracetam (Keppra) 750 mg PO BID [facility] Last Admin: 06/30/18 09:27 Dose: 750 mg Documented by: Magnesium Hydroxide (Milk Of Magnesia) 30 ml PO Q4H PRN PRN Reason: Constipation Metoclopramide HCl (Reglan) 10 mg PO Q6H PRN PRN Reason: Nausea And Vomiting Metoprolol Tartrate (Lopressor) 100 mg PO BID [facility] Last Admin: 06/30/18 09:26 Dose: 100 mg Documented by: Ondansetron HCl (Zofran) 4 mg IV Q8H PRN PRN Reason: Nausea And Vomiting Pantoprazole Sodium (Protonix) 20 mg PO QDAY [facility] Last Admin: 06/30/18 09:27 Dose: 20 mg Documented by: Promethazine HCl (Phenergan) 25 mg NV Q6H PRN PRN Reason: Nausea And Vomiting Simple Syrup (Simple Syrup) 15 ml FEEDTUBE PRN PRN PRN Reason: Hypoglycemia Simple Syrup (Simple Syrup) 30 ml FEEDTUBE PRN PRN PRN Reason: Hypoglycemia Sodium Bicarbonate (Sodium Bicarbonate) 325 mg FEEDTUBE PRN PRN PRN Reason: For Clogged Feeding Tube Sodium Chloride (Sodium Chloride Flush Syringe 10 Ml) 10 ml IV PRN PRN PRN Reason: LINE FLUSH Review of Systems ROS unobtainable: due to mental status Physical Examination Vital signs: Vital Signs Temp Pulse Resp BP Pulse Ox 98.9 F 105 H 20 166/83 100 06/24/18 06:13 06/24/18 06:13 06/24/18 06:13 06/24/18 06:13 06/24/18 06:13 General appearance: other (mild distress, osteoporosis) Eyes: non-icteric ENT: oropharynx moist, other Neck: supple, no JVD Ascultation: Bilateral: clear, diminished breath sounds, rhonchi (occasional transmitted) Cardiovascular: irregular rhythm Gastrointestinal: normoactive bowel sounds, non-distended Extremities: no cyanosis, no edema Musculoskeletal: no deformities other (patient is stuporous. Pupils are slowly reactive but equal. Poor corneals. No response to pain. No posturing) Results - Laboratory Findings CBC and BMP: 06/30/18 04:40 06/30/18 04:40 PT/INR, D-dimer PT 24.4 Sec. (12.2-14.9) H 06/30/18 04:40 INR 2.04 (0.87-1.13) H 06/30/18 04:40 Abnormal lab findings: Abnormal Labs 06/24/18 06/24/18 06/24/18 06:05 06:15 06:23 WBC 12.8 H Mobile % (Auto) 11.3 H Mobile # 1.5 H Seg Neutrophils % 74.3 H Seg Neuts % (Manual) Monocytes % (Manual) Seg Neutrophils # 9.5 H Seg Neutrophils # Man Monocytes # (Manual) Eosinophils # (Manual) PT INR Sodium Potassium Chloride Carbon Dioxide BUN 30 H Creatinine 1.6 H Glucose 150 H POC Glucose Hemoglobin A1c Lactic Acid 2.70 H* Magnesium AST 67 H Total Creatine Kinase 2694 H Troponin T 0.056 H Albumin 3.7 L HDL Cholesterol 63 H Urine Creatinine 06/24/18 06/24/18 06/24/18 08:37 11:43 13:20 WBC Mobile % (Auto) Mobile # Seg Neutrophils % Seg Neuts % (Manual) Monocytes % (Manual) Seg Neutrophils # Seg Neutrophils # Man Monocytes # (Manual) Eosinophils # (Manual) PT 21.7 H INR 1.76 H Sodium Potassium Chloride Carbon Dioxide BUN Creatinine Glucose POC Glucose 147 H Hemoglobin A1c Lactic Acid 2.10 H* Magnesium AST Total Creatine Kinase Troponin T Albumin HDL Cholesterol Urine Creatinine 06/24/18 06/24/18 06/25/18 16:23 21:55 05:05 WBC Mobile % (Auto) 12.0 H Mobile # 1.2 H Seg Neutrophils % Seg Neuts % (Manual) Monocytes % (Manual) Seg Neutrophils # Seg Neutrophils # Man Monocytes # (Manual) Eosinophils # (Manual) PT INR Sodium Potassium Chloride Carbon Dioxide BUN Creatinine Glucose POC Glucose 129 H 141 H Hemoglobin A1c Lactic Acid Magnesium AST Total Creatine Kinase Troponin T Albumin HDL Cholesterol Urine Creatinine 06/25/18 06/25/18 06/25/18 05:05 07:49 07:54 WBC Mobile % (Auto) Mobile # Seg Neutrophils % Seg Neuts % (Manual) Monocytes % (Manual) Seg Neutrophils # Seg Neutrophils # Man Monocytes # (Manual) Eosinophils # (Manual) PT INR Sodium Potassium Chloride 110.8 H Carbon Dioxide 19 L BUN 29 H Creatinine Glucose 163 H POC Glucose 168 H Hemoglobin A1c Lactic Acid Magnesium AST Total Creatine Kinase 1644 H Troponin T 0.071 H D Albumin HDL Cholesterol Urine Creatinine 06/25/18 06/25/18 06/25/18 11:41 17:02 21:07 WBC Mobile % (Auto) Mobile # Seg Neutrophils % Seg Neuts % (Manual) Monocytes % (Manual) Seg Neutrophils # Seg Neutrophils # Man Monocytes # (Manual) Eosinophils # (Manual) PT INR Sodium Potassium Chloride Carbon Dioxide BUN Creatinine Glucose POC Glucose 175 H 192 H 187 H Hemoglobin A1c Lactic Acid Magnesium AST Total Creatine Kinase Troponin T Albumin HDL Cholesterol Urine Creatinine 06/26/18 06/26/18 06/26/18 04:57 04:57 04:57 WBC Mobile % (Auto) 12.6 H Mobile # 1.4 H Seg Neutrophils % 70.3 H Seg Neuts % (Manual) Monocytes % (Manual) Seg Neutrophils # Seg Neutrophils # Man Monocytes # (Manual) Eosinophils # (Manual) PT 21.1 H INR 1.70 H Sodium 148 H Potassium Chloride 111.9 H Carbon Dioxide 21 L BUN 32 H Creatinine Glucose 249 H POC Glucose Hemoglobin A1c Lactic Acid Magnesium AST Total Creatine Kinase Troponin T Albumin HDL Cholesterol Urine Creatinine 06/26/18 06/26/18 06/26/18 08:48 11:38 16:33 WBC Mobile % (Auto) Mobile # Seg Neutrophils % Seg Neuts % (Manual) Monocytes % (Manual) Seg Neutrophils # Seg Neutrophils # Man Monocytes # (Manual) Eosinophils # (Manual) PT INR Sodium Potassium Chloride Carbon Dioxide BUN Creatinine Glucose POC Glucose 253 H 269 H 239 H Hemoglobin A1c Lactic Acid Magnesium AST Total Creatine Kinase Troponin T Albumin HDL Cholesterol Urine Creatinine 06/26/18 06/27/18 06/27/18 22:13 04:47 04:47 WBC 11.9 H Mobile % (Auto) 12.4 H Mobile # 1.5 H Seg Neutrophils % Seg Neuts % (Manual) Monocytes % (Manual) Seg Neutrophils # 7.9 H Seg Neutrophils # Man Monocytes # (Manual) Eosinophils # (Manual) PT 20.6 H INR 1.65 H Sodium Potassium Chloride Carbon Dioxide BUN Creatinine Glucose POC Glucose 166 H Hemoglobin A1c Lactic Acid Magnesium AST Total Creatine Kinase Troponin T Albumin HDL Cholesterol Urine Creatinine 06/27/18 06/27/18 06/27/18 04:47 08:18 12:24 WBC Mobile % (Auto) Mobile # Seg Neutrophils % Seg Neuts % (Manual) Monocytes % (Manual) Seg Neutrophils # Seg Neutrophils # Man Monocytes # (Manual) Eosinophils # (Manual) PT INR Sodium 146 H Potassium Chloride 109.0 H Carbon Dioxide BUN 32 H Creatinine 1.6 H Glucose 299 H POC Glucose 343 H 329 H Hemoglobin A1c Lactic Acid Magnesium AST Total Creatine Kinase Troponin T Albumin 3.1 L HDL Cholesterol Urine Creatinine 06/27/18 06/27/18 06/28/18 17:29 21:32 03:28 WBC Mobile % (Auto) Mobile # Seg Neutrophils % Seg Neuts % (Manual) Monocytes % (Manual) Seg Neutrophils # Seg Neutrophils # Man Monocytes # (Manual) Eosinophils # (Manual) PT 19.3 H INR 1.52 H Sodium Potassium Chloride Carbon Dioxide BUN Creatinine Glucose POC Glucose 251 H 270 H Hemoglobin A1c Lactic Acid Magnesium AST Total Creatine Kinase Troponin T Albumin HDL Cholesterol Urine Creatinine 06/28/18 06/28/18 06/28/18 03:28 08:05 09:21 WBC Mobile % (Auto) Mobile # Seg Neutrophils % Seg Neuts % (Manual) Monocytes % (Manual) Seg Neutrophils # Seg Neutrophils # Man Monocytes # (Manual) Eosinophils # (Manual) PT INR Sodium 146 H Potassium Chloride 110.3 H Carbon Dioxide 21 L BUN 37 H Creatinine 1.7 H Glucose 446 H POC Glucose 442 H 451 H Hemoglobin A1c Lactic Acid Magnesium AST Total Creatine Kinase Troponin T Albumin HDL Cholesterol Urine Creatinine 06/28/18 06/28/18 06/28/18 11:40 17:38 23:28 WBC Mobile % (Auto) Mobile # Seg Neutrophils % Seg Neuts % (Manual) Monocytes % (Manual) Seg Neutrophils # Seg Neutrophils # Man Monocytes # (Manual) Eosinophils # (Manual) PT INR Sodium Potassium Chloride Carbon Dioxide BUN Creatinine Glucose POC Glucose 407 H 390 H 412 H Hemoglobin A1c Lactic Acid Magnesium AST Total Creatine Kinase Troponin T Albumin HDL Cholesterol Urine Creatinine 06/29/18 06/29/1806/29/19 03:10 03:15 03:39 WBC Mobile % (Auto) Mobile # Seg Neutrophils % Seg Neuts % (Manual) Monocytes % (Manual) Seg Neutrophils # Seg Neutrophils # Man Monocytes # (Manual) Eosinophils # (Manual) PT 23.9 H INR 1.99 H Sodium Potassium Chloride Carbon Dioxide BUN Creatinine Glucose POC Glucose > 500 H 273 H Hemoglobin A1c Lactic Acid Magnesium AST Total Creatine Kinase Troponin T Albumin HDL Cholesterol Urine Creatinine 06/29/18 06/29/18 06/29/18 03:39 06:04 08:40 WBC Mobile % (Auto) Mobile # Seg Neutrophils % Seg Neuts % (Manual) Monocytes % (Manual) Seg Neutrophils # Seg Neutrophils # Man Monocytes # (Manual) Eosinophils # (Manual) PT INR Sodium 147 H Potassium Chloride 110.6 H Carbon Dioxide BUN 53 H Creatinine 2.3 H Glucose 551 H* POC Glucose 496 H 398 H Hemoglobin A1c Lactic Acid Magnesium AST Total Creatine Kinase Troponin T Albumin HDL Cholesterol Urine Creatinine 06/29/18 06/29/18 06/29/18 10:41 11:26 16:09 WBC Mobile % (Auto) Mobile # Seg Neutrophils % Seg Neuts % (Manual) Monocytes % (Manual) Seg Neutrophils # Seg Neutrophils # Man Monocytes # (Manual) Eosinophils # (Manual) PT INR Sodium Potassium Chloride Carbon Dioxide BUN Creatinine Glucose POC Glucose 432 H 286 H Hemoglobin A1c 9.8 H Lactic Acid Magnesium AST Total Creatine Kinase Troponin T Albumin HDL Cholesterol Urine Creatinine 06/29/18 06/29/18 06/29/18 17:40 18:19 20:57 WBC Mobile % (Auto) Mobile # Seg Neutrophils % Seg Neuts % (Manual) Monocytes % (Manual) Seg Neutrophils # Seg Neutrophils # Man Monocytes # (Manual) Eosinophils # (Manual) PT INR Sodium Potassium Chloride Carbon Dioxide BUN Creatinine Glucose POC Glucose 263 H 197 H Hemoglobin A1c Lactic Acid Magnesium AST Total Creatine Kinase Troponin T Albumin HDL Cholesterol Urine Creatinine 69.3 H 06/30/18 06/30/18 06/30/18 00:23 04:40 04:40 WBC Mobile % (Auto) Mobile # Seg Neutrophils % Seg Neuts % (Manual) Monocytes % (Manual) Seg Neutrophils # Seg Neutrophils # Man Monocytes # (Manual) Eosinophils # (Manual) PT 24.4 H INR 2.04 H Sodium 150 H Potassium 5.1 H Chloride 114.6 H Carbon Dioxide BUN 46 H Creatinine 2.1 H Glucose 271 H POC Glucose 177 H Hemoglobin A1c Lactic Acid Magnesium 2.70 H AST Total Creatine Kinase Troponin T Albumin HDL Cholesterol Urine Creatinine 06/30/18 06/30/18 06/30/18 04:40 05:34 08:51 WBC 20.3 H Mobile % (Auto) Mobile # Seg Neutrophils % Seg Neuts % (Manual) 73.0 H Monocytes % (Manual) 8.0 H Seg Neutrophils # Seg Neutrophils # Man 14.8 H Monocytes # (Manual) 1.6 H Eosinophils # (Manual) 0.6 H PT INR Sodium Potassium Chloride Carbon Dioxide BUN Creatinine Glucose POC Glucose 251 H 299 H Hemoglobin A1c Lactic Acid Magnesium AST Total Creatine Kinase Troponin T Albumin HDL Cholesterol Urine Creatinine Assessment and Plan 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 High WBC noted. Chest x-ray without infiltrates or aspiration pneumonia. We'll also be related to acute stroke CAD Hypertension Past medical history of stroke Acute kidney injury Recommendations Aspiration precautions, elevate head of bed Gentle fluids Nothing by mouth Warfarin already on hold On aspirin, statin therapy, per neurology and hospital medicine. Discuss with neurology if ASA to be continued Continue oxygen support and oximetry approximately 93% Order PICC line in order to initiate hypertonic saline if this is going to be neurology recommendation. However, patient already hyponatremic with elevated BUNs/creatinine ratio DVT prophylaxis Overall prognosis appears to be poor in view of neurological status. Recommend discussion with family regarding advanced directives, family wishes regarding intubation or mechanical ventilation support. Discussed plan of care and orders with staff in detail. Critical care time was 40 minutes of [id number] evaluation and coordination of care
[2018-06-30] MEDS: TYLENOL PO PRN (10:29)
--- NOTE | 2018-06-30 10:31 | Ultrasound Report ---
ULTRASOUND RENAL BILATERAL HISTORY: Chronic kidney disease. TECHNIQUE: transabdominal ultrasound with color Doppler interrogation. COMPARISON: 05/16/14 renal ultrasound. FINDINGS: The right kidney measures 10.7 x 5.3 x 5.4cm. Right renal cortex: 1.7cm. The left kidney measures 10.8 x 4.1 x 4.9cm. Left renal cortex: 1.6cm. The kidneys are normal size, contour and position. There is increased renal cortical echotexture bilaterally consistent with nonspecific renal parenchymal disease. Corticomedullary differentiation is preserved. A 1.7 x 1.4 x 1.5 cm simple cyst is noted in the superior right kidney which is new since the previous exam. No left renal lesion is identified. No evidence for mass, nephrolithiasis, hydronephrosis or perinephric fluid. The views of the bladder and the region of the ureters appear normal. 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 New simple right renal cyst.
--- NOTE | 2018-06-30 11:09 | Progress Note ---
Assessment and Plan Acute CVA Lactic acidosis Multiple metabolic abnormalities Hypertension Diabetes -uncontrolled Hx of CAD with 3v CABG in [address] [facility] 2014 reports patent bypass grafts EF 50-55% by echocardiogram this admission Paroxysmal afib currently in afib; on metoprolol for rate control Warfarin held due to minimal hemorrhage within the right MCA distribution Abnormal troponin in the setting of rhabdomyolysis Subjective Date of service: 06/30/18 Interval history: Patient transferred to CCU due to progression of the stroke. Warfarin held due to minimal hemorrhage within the right MCA distribution seen on repeat head CT scan. Objective Vital Signs Temp Pulse Pulse Resp Resp BP Pulse Ox 06/30/18 10:01 112 H 29 H 147/71 97 06/30/18 09:51 125 H 39 H 160/72 99 06/30/18 09:41 125 H 32 H 160/72 99 06/30/18 09:31 122 H 38 H 160/72 100 06/30/18 09:27 120 H 160/72 06/30/18 09:21 124 H 28 H 160/72 100 06/30/18 09:11 114 H 27 H 160/72 100 06/30/18 09:00 115 H 27 H 160/72 99 06/30/18 08:51 110 H 31 H 156/80 99 06/30/18 08:41 125 H 36 H 156/80 99 06/30/18 08:31 122 H 36 H 156/80 100 06/30/18 08:21 120 H 26 H 156/80 99 06/30/18 08:11 122 H 25 H 156/80 99 06/30/18 08:01 119 H 19 156/80 99 06/30/18 08:00 37 H 06/30/18 07:51 124 H 28 H 130/85 98 06/30/18 07:41 134 H 27 H 130/85 99 06/30/18 07:31 130 H 28 H 130/85 98 06/30/18 07:21 128 H 26 H 130/85 99 06/30/18 07:11 128 H 25 H 152/80 99 06/30/18 07:01 128 H 28 H 152/80 98 06/30/18 06:51 129 H 32 H 130/85 98 06/30/18 06:41 136 H 24 130/85 98 06/30/18 06:30 112 H 30 H 130/85 99 06/30/18 06:21 122 H 24 130/85 98 06/30/18 06:11 116 H 25 H 130/85 99 06/30/18 06:01 129 H 32 H 130/85 97 06/30/18 05:51 123 H 25 H 144/78 99 06/30/18 05:41 120 H 31 H 144/78 99 06/30/18 05:31 113 H 32 H 144/78 98 06/30/18 05:21 113 H 27 H 144/78 98 06/30/18 05:11 115 H 24 144/78 98 06/30/18 05:01 111 H 31 H 144/78 96 06/30/18 04:51 105 H 43 H 135/69 98 06/30/18 04:41 120 H 26 H 135/69 98 06/30/18 04:31 135 H 29 H 135/69 98 06/30/18 04:21 111 H 19 135/69 99 06/30/18 04:11 98 H 20 135/69 98 06/30/18 04:00 102 H 129 H 26 H 135/69 97 06/30/18 03:51 97 H 30 H 149/81 99 06/30/18 03:41 98 H 37 H 99 06/30/18 03:31 114 H 31 H 99 06/30/18 03:21 109 H 35 H 99 06/30/18 03:15 100.6 F H 06/30/18 00:00 100.2 F H 110 H 113 H 28 H 100 06/29/18 21:12 108 H 153/88 06/29/18 20:00 110 H 110 H 28 H 100 06/29/18 19:53 101.1 F H 06/29/18 19:51 98 06/29/18 19:31 97 H 32 H 147/76 97 06/29/18 19:21 109 H 18 147/76 97 06/29/18 19:11 97 H 29 H 147/76 98 06/29/18 19:00 102 H 26 H 139/83 98 06/29/18 18:51 100 H 27 H 147/76 98 06/29/18 18:41 101 H 27 H 147/76 98 06/29/18 18:31 102 H 25 H 147/76 98 06/29/18 18:21 106 H 24 147/76 98 06/29/18 18:11 103 H 31 H 147/76 98 06/29/18 18:00 102 H 31 H 147/76 98 06/29/18 17:51 100 H 28 H 145/67 99 06/29/18 17:41 97 H 23 145/67 99 06/29/18 17:31 101 H 29 H 145/67 98 06/29/18 17:21 98 H 34 H 145/67 97 06/29/18 17:11 110 H 25 H 145/67 97 06/29/18 17:01 103 H 20 145/67 100 06/29/18 16:51 101 H 27 H 157/84 99 06/29/18 16:41 102 H 20 157/84 99 06/29/18 16:31 98 H 28 H 148/84 100 06/29/18 16:21 97 H 23 148/84 97 06/29/18 16:11 101 H 34 H 148/84 97 06/29/18 16:00 97.6 F 103 H 100 H 35 H 157/84 97 06/29/18 15:50 97 H 22 170/83 97 06/29/18 15:41 97 H 29 H 148/84 98 06/29/18 15:31 99 H 26 H 148/84 97 06/29/18 15:21 101 H 26 H 148/84 98 06/29/18 15:11 100 H 26 H 148/84 98 06/29/18 15:00 100 H 27 H 148/84 98 06/29/18 14:51 99 H 24 170/83 98 06/29/18 14:41 91 H 20 170/83 98 06/29/18 14:31 92 H 20 166/81 97 06/29/18 14:21 89 21 166/81 98 06/29/18 14:11 89 28 H 166/81 98 06/29/18 14:00 87 23 166/81 98 06/29/18 13:51 93 H 17 151/89 97 06/29/18 13:41 85 26 H 151/89 98 06/29/18 13:31 86 27 H 151/89 98 06/29/18 13:21 84 21 170/83 98 06/29/18 13:11 84 21 170/83 99 06/29/18 13:00 86 24 170/83 98 06/29/18 12:51 84 27 H 151/89 98 06/29/18 12:48 84 151/89 06/29/18 12:41 90 22 151/89 99 06/29/18 12:30 82 18 160/92 100 06/29/18 12:00 98.4 F 74 88 30 H 100 06/29/18 11:51 80 30 H 160/92 99 06/29/18 11:41 80 29 H 160/92 99 06/29/18 11:31 80 28 H 160/92 99 06/29/18 11:21 80 21 160/92 100 06/29/18 11:11 80 28 H 160/92 99 - Physical Examination General: No Apparent Distress, Cachectic Cardiac: Positive: irregularly irregular - Labs and Meds Coagulation 06/30/18 Range/Units 04:40 PT 24.4 H (12.2-14.9) Sec. INR 2.04 H (0.87-1.13) CBC 06/30/18 Range/Units 04:40 WBC 20.3 H (4.5-11.0) K/mm3 RBC 4.87 (3.65-5.03) M/mm3 Hgb 14.5 (11.8-15.2) gm/dl Hct 44.9 (35.5-45.6) % Plt Count 212 (140-440) K/mm3 Comprehensive Metabolic Panel 06/30/18 Range/Units 04:40 Sodium 150 H (137-145) mmol/L Potassium 5.1 H (3.6-5.0) mmol/L Chloride 114.6 H (98-107) mmol/L Carbon Dioxide 24 (22-30) mmol/L BUN 46 H (9-20) mg/dL Creatinine 2.1 H (0.8-1.5) mg/dL Glucose 271 H (75-100) mg/dL Calcium 9.7 (8.4-10.2) mg/dL
--- NOTE | 2018-06-30 11:44 | Progress Note ---
Assessment and Plan Altered mental status, likely due to Acute progression of CVA and possible seizure before admission - carotid Dopplers, echo; unremarkable - MRI/MRA showed Acute right posterior-superior frontal lobe white matter lacunar infarct -neurology consult appreciated, EEG showed diffuse slowing, encephalopathy - repeat CT head ordered as his mental status decline on 06/29/18 which showed: A large area of sulcal effacement, hypoattenuation and edema has developed throughout the right cerebral hemisphere measuring up to 12.8 x 3.7 cm in axial plane. - Patient is now on Keppra, atorvastatin and ASA Acute CVA with progression - - repeat CT head ordered on 06/29/18 which showed: A large area of sulcal effacement, hypoattenuation and edema has developed throughout the right cerebral hemisphere measuring up to 12.8 x 3.7 cm in axial plane. - Given mannitol by neurology, transferred to ICU - cont to hold coumadin to prevent hemorrhagic conversion Seizure , likely from acute large CVA - cont keppra, EEG showed diffuse slowing, encephalopathy History of A. fib on Coumadin - continued coumadin following admission, will hold until clears by neurology Hypertension, uncontrolled - increased BB, added norvasc - stopped losartan, aldcatone and lasix for URBANO Diabetes mellitus, uncontrolled - Sliding-scale insulin, Accu-Chek, adjust his insulin dose, check a1c - iv fluid with NS Rhabdomyolysis, lactic acidosis - Patient is on IV fluids, trending down Elevated troponin level - cardiology consult appreciated SIRS, likely from - on levaquin renally dosed, Cx workup so far negative URBANO likely due to vasomotor nephropathy - stop losartan, aldcatone and lasix for URBANO, iv fluid with NS - renal US, nephrology consult Hypernatremia, cont to monitor, on IV fluid Aspiration risk -On NG tube feeding; will do bed side swallow evaluation and put him on diet DVT prophylaxis -SCD and now Disposition - continue MICU care Prognosis; poor. The high probability of a clinically significant, sudden or life threatening deterioration of the [eyal, renal, respiratory] system(s) required my full and direct attention, intervention and personal management. The aggregate critical care time was [35] minutes. This time is in addition to time spent performing reported procedures but includes the following: [x] Data Review and interpretation [x] Patient assessment and monitoring of vital signs [x] Documentation [x] Medication orders and management Brief History 72-year-old -[place] male with past medical history significant for hypertension, CAD status post CABG, chronic A. fib, diabetes mellitus, hyperlipidemia, prostate cancer was brought to the emergency department via EMS after he was found by his son lying in the floor around 1 AM in the morning. His son said he was lying the floor, lost bowel and bladder activity, drooling of saliva but no seizure activity or fascial palsy. In the emergency department patient has elevated lactic acid level, elevated CpK and mild leukocytosis. Patient was admitted to the floor for further evaluation and management with acute stroke protocol. Hospitalist Physical Patient is lethargic. with drooling saliva The patient appeared well nourished and normally developed. Vital signs as documented. Head exam is unremarkable. No scleral icterus . Neck is without jugular venous distension, thyromegaly, or carotid bruits. Lungs are clear to auscultation. Cardiac exam reveals S1 and s2 positive. Abdominal exam reveals normal bowel sounds. Extremities are nonedematous and both femoral and pedal pulses are normal. 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: unable to follow commend Subjective Date of service: 06/30/18 Interval history: Patient seen and examined Unable to provide history discussed with family at bedside and updated patient remained altered and minimally responsive Objective - Constitutional Vitals: Vital Signs - 12hr 06/30/18 06/30/18 06/30/18 00:00 03:15 03:21 Temperature 100.2 F H 100.6 F H Pulse Rate 110 H 109 H Pulse Rate [ 113 H From Monitor] Respiratory 28 H 35 H Rate Respiratory Rate [Hip] Blood Pressure O2 Sat by Pulse 100 99 Oximetry 06/30/18 06/30/18 06/30/18 03:31 03:41 03:51 Temperature Pulse Rate 114 H 98 H 97 H Pulse Rate [ From Monitor] Respiratory 31 H 37 H 30 H Rate Respiratory Rate [Hip] Blood Pressure 149/81 O2 Sat by Pulse 99 99 99 Oximetry 06/30/18 06/30/18 06/30/18 04:00 04:11 04:21 Temperature Pulse Rate 102 H 98 H 111 H Pulse Rate [ 129 H From Monitor] Respiratory 26 H 20 19 Rate Respiratory Rate [Hip] Blood Pressure 135/69 135/69 135/69 O2 Sat by Pulse 97 98 99 Oximetry 06/30/18 06/30/18 06/30/18 04:31 04:41 04:51 Temperature Pulse Rate 135 H 120 H 105 H Pulse Rate [ From Monitor] Respiratory 29 H 26 H 43 H Rate Respiratory Rate [Hip] Blood Pressure 135/69 135/69 135/69 O2 Sat by Pulse 98 98 98 Oximetry 06/30/18 06/30/18 06/30/18 05:01 05:11 05:21 Temperature Pulse Rate 111 H 115 H 113 H Pulse Rate [ From Monitor] Respiratory 31 H 24 27 H Rate Respiratory Rate [Hip] Blood Pressure 144/78 144/78 144/78 O2 Sat by Pulse 96 98 98 Oximetry 06/30/18 06/30/18 06/30/18 05:31 05:41 05:51 Temperature Pulse Rate 113 H 120 H 123 H Pulse Rate [ From Monitor] Respiratory 32 H 31 H 25 H Rate Respiratory Rate [Hip] Blood Pressure 144/78 144/78 144/78 O2 Sat by Pulse 98 99 99 Oximetry 06/30/18 06/30/18 06/30/18 06:01 06:11 06:21 Temperature Pulse Rate 129 H 116 H 122 H Pulse Rate [ From Monitor] Respiratory 32 H 25 H 24 Rate Respiratory Rate [Hip] Blood Pressure 130/85 130/85 130/85 O2 Sat by Pulse 97 99 98 Oximetry 06/30/18 06/30/18 06/30/18 06:30 06:41 06:51 Temperature Pulse Rate 112 H 136 H 129 H Pulse Rate [ From Monitor] Respiratory 30 H 24 32 H Rate Respiratory Rate [Hip] Blood Pressure 130/85 130/85 130/85 O2 Sat by Pulse 99 98 98 Oximetry 06/30/18 06/30/18 06/30/18 07:01 07:11 07:21 Temperature Pulse Rate 128 H 128 H 128 H Pulse Rate [ From Monitor] Respiratory 28 H 25 H 26 H Rate Respiratory Rate [Hip] Blood Pressure 152/80 152/80 130/85 O2 Sat by Pulse 98 99 99 Oximetry 06/30/18 06/30/18 06/30/18 07:31 07:41 07:51 Temperature Pulse Rate 130 H 134 H 124 H Pulse Rate [ From Monitor] Respiratory 28 H 27 H 28 H Rate Respiratory Rate [Hip] Blood Pressure 130/85 130/85 130/85 O2 Sat by Pulse 98 99 98 Oximetry 06/30/18 06/30/18 06/30/18 08:00 08:01 08:11 Temperature Pulse Rate 119 H 122 H Pulse Rate [ From Monitor] Respiratory 19 25 H Rate Respiratory 37 H Rate [Hip] Blood Pressure 156/80 156/80 O2 Sat by Pulse 99 99 Oximetry 06/30/18 06/30/18 06/30/18 08:21 08:31 08:41 Temperature Pulse Rate 120 H 122 H 125 H Pulse Rate [ From Monitor] Respiratory 26 H 36 H 36 H Rate Respiratory Rate [Hip] Blood Pressure 156/80 156/80 156/80 O2 Sat by Pulse 99 100 99 Oximetry 06/30/18 06/30/18 06/30/18 08:51 09:00 09:11 Temperature Pulse Rate 110 H 115 H 114 H Pulse Rate [ From Monitor] Respiratory 31 H 27 H 27 H Rate Respiratory Rate [Hip] Blood Pressure 156/80 160/72 160/72 O2 Sat by Pulse 99 99 100 Oximetry 06/30/18 06/30/18 06/30/18 09:21 09:27 09:31 Temperature Pulse Rate 124 H 120 H 122 H Pulse Rate [ From Monitor] Respiratory 28 H 38 H Rate Respiratory Rate [Hip] Blood Pressure 160/72 160/72 160/72 O2 Sat by Pulse 100 100 Oximetry 06/30/18 06/30/18 06/30/18 09:41 09:51 10:01 Temperature Pulse Rate 125 H 125 H 112 H Pulse Rate [ From Monitor] Respiratory 32 H 39 H 29 H Rate Respiratory Rate [Hip] Blood Pressure 160/72 160/72 147/71 O2 Sat by Pulse 99 99 97 Oximetry - Labs CBC & Chem 7: 06/30/18 04:40 07/01/18 06:10 Labs: Abnormal lab results 06/29/18 06/29/18 06/29/18 Range/Units 16:09 17:40 18:19 WBC (4.5-11.0) K/mm3 Seg Neuts % (Manual) (40.0-70.0) % Monocytes % (Manual) (0.0-7.3) % Seg Neutrophils # Man (1.8-7.7) K/mm3 Monocytes # (Manual) (0.0-0.8) K/mm3 Eosinophils # (Manual) (0.0-0.4) K/mm3 PT (12.2-14.9) Sec. INR (0.87-1.13) Sodium (137-145) mmol/L Potassium (3.6-5.0) mmol/L Chloride (98-107) mmol/L BUN (9-20) mg/dL Creatinine (0.8-1.5) mg/dL Glucose (75-100) mg/dL POC Glucose 286 H 263 H (70-105) Magnesium (1.7-2.3) mg/dL Urine Creatinine 69.3 H (0.1-20.0) mg/dL 06/29/18 06/30/18 06/30/18 Range/Units 20:57 00:23 04:40 WBC (4.5-11.0) K/mm3 Seg Neuts % (Manual) (40.0-70.0) % Monocytes % (Manual) (0.0-7.3) % Seg Neutrophils # Man (1.8-7.7) K/mm3 Monocytes # (Manual) (0.0-0.8) K/mm3 Eosinophils # (Manual) (0.0-0.4) K/mm3 PT 24.4 H (12.2-14.9) Sec. INR 2.04 H (0.87-1.13) Sodium (137-145) mmol/L Potassium (3.6-5.0) mmol/L Chloride (98-107) mmol/L BUN (9-20) mg/dL Creatinine (0.8-1.5) mg/dL Glucose (75-100) mg/dL POC Glucose 197 H 177 H (70-105) Magnesium (1.7-2.3) mg/dL Urine Creatinine (0.1-20.0) mg/dL 06/30/18 06/30/18 06/30/18 Range/Units 04:40 04:40 05:34 WBC 20.3 H (4.5-11.0) K/mm3 Seg Neuts % (Manual) 73.0 H (40.0-70.0) % Monocytes % (Manual) 8.0 H (0.0-7.3) % Seg Neutrophils # Man 14.8 H (1.8-7.7) K/mm3 Monocytes # (Manual) 1.6 H (0.0-0.8) K/mm3 Eosinophils # (Manual) 0.6 H (0.0-0.4) K/mm3 PT (12.2-14.9) Sec. INR (0.87-1.13) Sodium 150 H (137-145) mmol/L Potassium 5.1 H (3.6-5.0) mmol/L Chloride 114.6 H (98-107) mmol/L BUN 46 H (9-20) mg/dL Creatinine 2.1 H (0.8-1.5) mg/dL Glucose 271 H (75-100) mg/dL POC Glucose 251 H (70-105) Magnesium 2.70 H (1.7-2.3) mg/dL Urine Creatinine (0.1-20.0) mg/dL 06/30/18 Range/Units 08:51 WBC (4.5-11.0) K/mm3 Seg Neuts % (Manual) (40.0-70.0) % Monocytes % (Manual) (0.0-7.3) % Seg Neutrophils # Man (1.8-7.7) K/mm3 Monocytes # (Manual) (0.0-0.8) K/mm3 Eosinophils # (Manual) (0.0-0.4) K/mm3 PT (12.2-14.9) Sec. INR (0.87-1.13) Sodium (137-145) mmol/L Potassium (3.6-5.0) mmol/L Chloride (98-107) mmol/L BUN (9-20) mg/dL Creatinine (0.8-1.5) mg/dL Glucose (75-100) mg/dL POC Glucose 299 H (70-105) Magnesium (1.7-2.3) mg/dL Urine Creatinine (0.1-20.0) mg/dL
--- NOTE | 2018-06-30 15:55 | Event Note ---
Date: 06/30/18 Discussed with family today with CM Patient's Son wants DNR and hospice placement
--- NOTE | 2018-06-30 16:42 | Progress Note ---
Subjective Date of service: 06/30/18 Interval history: dictated extensive note yesterday about sequence of the imaging studies based on location of the acute ischemc stroke certainly was embolus from Atrial fib as the artery was fully proved patent on the MRA several days previous large area of ischemic is very definitive for total occlusion the lysis of clot which cause hemorrhagic transformation on the margin as reflow occured I gave mannitol but response is limited given renal factors that prevent osmotic gradient but is best option available Objective - Vital Sign Vital Signs - 12hr 06/30/18 06/30/18 06/30/18 04:41 04:51 05:01 Temperature Pulse Rate 120 H 105 H 111 H Pulse Rate [ From Monitor] Pulse Rate [ Right Dorsalis Pedis] Respiratory 26 H 43 H 31 H Rate Respiratory Rate [Hip] Blood Pressure 135/69 135/69 144/78 O2 Sat by Pulse 98 98 96 Oximetry 06/30/18 06/30/18 06/30/18 05:11 05:21 05:31 Temperature Pulse Rate 115 H 113 H 113 H Pulse Rate [ From Monitor] Pulse Rate [ Right Dorsalis Pedis] Respiratory 24 27 H 32 H Rate Respiratory Rate [Hip] Blood Pressure 144/78 144/78 144/78 O2 Sat by Pulse 98 98 98 Oximetry 06/30/18 06/30/18 06/30/18 05:41 05:51 06:01 Temperature Pulse Rate 120 H 123 H 129 H Pulse Rate [ From Monitor] Pulse Rate [ Right Dorsalis Pedis] Respiratory 31 H 25 H 32 H Rate Respiratory Rate [Hip] Blood Pressure 144/78 144/78 130/85 O2 Sat by Pulse 99 99 97 Oximetry 06/30/18 06/30/18 06/30/18 06:11 06:21 06:30 Temperature Pulse Rate 116 H 122 H 112 H Pulse Rate [ From Monitor] Pulse Rate [ Right Dorsalis Pedis] Respiratory 25 H 24 30 H Rate Respiratory Rate [Hip] Blood Pressure 130/85 130/85 130/85 O2 Sat by Pulse 99 98 99 Oximetry 06/30/18 06/30/18 06/30/18 06:41 06:51 07:01 Temperature Pulse Rate 136 H 129 H 128 H Pulse Rate [ From Monitor] Pulse Rate [ Right Dorsalis Pedis] Respiratory 24 32 H 28 H Rate Respiratory Rate [Hip] Blood Pressure 130/85 130/85 152/80 O2 Sat by Pulse 98 98 98 Oximetry 06/30/18 06/30/18 06/30/18 07:11 07:21 07:31 Temperature Pulse Rate 128 H 128 H 130 H Pulse Rate [ From Monitor] Pulse Rate [ Right Dorsalis Pedis] Respiratory 25 H 26 H 28 H Rate Respiratory Rate [Hip] Blood Pressure 152/80 130/85 130/85 O2 Sat by Pulse 99 99 98 Oximetry 06/30/18 06/30/18 06/30/18 07:41 07:51 08:00 Temperature Pulse Rate 134 H 124 H Pulse Rate [ 129 H From Monitor] Pulse Rate [ 110 H Right Dorsalis Pedis] Respiratory 27 H 28 H 24 Rate Respiratory 37 H Rate [Hip] Blood Pressure 130/85 130/85 O2 Sat by Pulse 99 98 98 Oximetry 06/30/18 06/30/18 06/30/18 08:01 08:11 08:21 Temperature Pulse Rate 119 H 122 H 120 H Pulse Rate [ From Monitor] Pulse Rate [ Right Dorsalis Pedis] Respiratory 19 25 H 26 H Rate Respiratory Rate [Hip] Blood Pressure 156/80 156/80 156/80 O2 Sat by Pulse 99 99 99 Oximetry 06/30/18 06/30/18 06/30/18 08:31 08:41 08:51 Temperature Pulse Rate 122 H 125 H 110 H Pulse Rate [ From Monitor] Pulse Rate [ Right Dorsalis Pedis] Respiratory 36 H 36 H 31 H Rate Respiratory Rate [Hip] Blood Pressure 156/80 156/80 156/80 O2 Sat by Pulse 100 99 99 Oximetry 06/30/18 06/30/18 06/30/18 09:00 09:11 09:21 Temperature Pulse Rate 115 H 114 H 124 H Pulse Rate [ From Monitor] Pulse Rate [ Right Dorsalis Pedis] Respiratory 27 H 27 H 28 H Rate Respiratory Rate [Hip] Blood Pressure 160/72 160/72 160/72 O2 Sat by Pulse 99 100 100 Oximetry 06/30/18 06/30/18 06/30/18 09:27 09:31 09:41 Temperature Pulse Rate 120 H 122 H 125 H Pulse Rate [ From Monitor] Pulse Rate [ Right Dorsalis Pedis] Respiratory 38 H 32 H Rate Respiratory Rate [Hip] Blood Pressure 160/72 160/72 160/72 O2 Sat by Pulse 100 99 Oximetry 06/30/18 06/30/18 06/30/18 09:51 10:01 10:11 Temperature Pulse Rate 125 H 112 H 109 H Pulse Rate [ From Monitor] Pulse Rate [ Right Dorsalis Pedis] Respiratory 39 H 29 H 28 H Rate Respiratory Rate [Hip] Blood Pressure 160/72 147/71 147/71 O2 Sat by Pulse 99 97 100 Oximetry 06/30/18 06/30/18 06/30/18 10:21 10:31 10:41 Temperature Pulse Rate 102 H 87 79 Pulse Rate [ From Monitor] Pulse Rate [ Right Dorsalis Pedis] Respiratory 36 H 36 H 38 H Rate Respiratory Rate [Hip] Blood Pressure 147/71 147/71 147/71 O2 Sat by Pulse 100 99 99 Oximetry 06/30/18 06/30/18 06/30/18 10:51 11:00 11:11 Temperature Pulse Rate 89 84 86 Pulse Rate [ From Monitor] Pulse Rate [ Right Dorsalis Pedis] Respiratory 25 H 38 H 26 H Rate Respiratory Rate [Hip] Blood Pressure 147/71 147/71 114/63 O2 Sat by Pulse 99 99 Oximetry 06/30/18 06/30/18 06/30/18 11:20 11:31 11:41 Temperature Pulse Rate 89 83 82 Pulse Rate [ From Monitor] Pulse Rate [ Right Dorsalis Pedis] Respiratory 27 H 31 H 33 H Rate Respiratory Rate [Hip] Blood Pressure 147/71 114/63 114/63 O2 Sat by Pulse 99 99 99 Oximetry 06/30/18 06/30/18 06/30/18 11:51 12:00 12:11 Temperature Pulse Rate 92 H 87 93 H Pulse Rate [ 112 H From Monitor] Pulse Rate [ 112 H Right Dorsalis Pedis] Respiratory 30 H 33 H 27 H Rate Respiratory Rate [Hip] Blood Pressure 114/63 127/69 127/69 O2 Sat by Pulse 99 95 99 Oximetry 06/30/18 06/30/18 06/30/18 12:21 12:31 12:41 Temperature Pulse Rate 93 H 88 93 H Pulse Rate [ From Monitor] Pulse Rate [ Right Dorsalis Pedis] Respiratory 34 H 31 H 27 H Rate Respiratory Rate [Hip] Blood Pressure 127/69 127/69 127/69 O2 Sat by Pulse 99 99 99 Oximetry 06/30/18 06/30/18 06/30/18 12:51 13:00 13:11 Temperature Pulse Rate 95 H 92 H 99 H Pulse Rate [ From Monitor] Pulse Rate [ Right Dorsalis Pedis] Respiratory 33 H 28 H 27 H Rate Respiratory Rate [Hip] Blood Pressure 127/69 119/68 119/68 O2 Sat by Pulse 99 98 99 Oximetry 06/30/18 06/30/18 06/30/18 13:21 13:31 13:41 Temperature Pulse Rate 89 96 H 91 H Pulse Rate [ From Monitor] Pulse Rate [ Right Dorsalis Pedis] Respiratory 33 H 35 H 29 H Rate Respiratory Rate [Hip] Blood Pressure 119/68 119/68 119/68 O2 Sat by Pulse 99 99 99 Oximetry 06/30/18 06/30/18 06/30/18 13:51 14:00 14:11 Temperature Pulse Rate 93 H 105 H 88 Pulse Rate [ From Monitor] Pulse Rate [ Right Dorsalis Pedis] Respiratory 30 H 29 H 34 H Rate Respiratory Rate [Hip] Blood Pressure 119/68 120/78 120/78 O2 Sat by Pulse 99 98 98 Oximetry 06/30/18 06/30/18 06/30/18 14:21 14:31 14:41 Temperature Pulse Rate 93 H 95 H 94 H Pulse Rate [ From Monitor] Pulse Rate [ Right Dorsalis Pedis] Respiratory 28 H 35 H 34 H Rate Respiratory Rate [Hip] Blood Pressure 120/78 120/78 120/78 O2 Sat by Pulse 98 99 99 Oximetry 06/30/18 06/30/18 06/30/18 14:51 15:00 15:11 Temperature Pulse Rate 107 H 103 H 101 H Pulse Rate [ From Monitor] Pulse Rate [ Right Dorsalis Pedis] Respiratory 27 H 28 H 27 H Rate Respiratory Rate [Hip] Blood Pressure 120/78 119/74 119/74 O2 Sat by Pulse 99 97 99 Oximetry 06/30/18 06/30/18 06/30/18 15:21 15:31 15:41 Temperature Pulse Rate 103 H 101 H 99 H Pulse Rate [ From Monitor] Pulse Rate [ Right Dorsalis Pedis] Respiratory 35 H 24 32 H Rate Respiratory Rate [Hip] Blood Pressure 119/74 119/74 119/74 O2 Sat by Pulse 99 100 99 Oximetry 06/30/18 06/30/18 06/30/18 15:51 16:00 16:01 Temperature 102.6 F H Pulse Rate 99 H 100 H Pulse Rate [ From Monitor] Pulse Rate [ Right Dorsalis Pedis] Respiratory 28 H 33 H 35 H Rate Respiratory Rate [Hip] Blood Pressure 119/74 129/74 129/74 O2 Sat by Pulse 99 97 100 Oximetry - Laboratory Findings CBC and BMP: 06/30/18 04:40 06/30/18 04:40 Abnormal Lab Findings: Abnormal Labs 06/24/18 06/24/18 06/24/18 06:05 06:15 06:23 WBC 12.8 H Cal[place] % (Auto) 11.3 H Calvert # 1.5 H Seg Neutrophils % 74.3 H Seg Neuts % (Manual) Monocytes % (Manual) Seg Neutrophils # 9.5 H Seg Neutrophils # Man Monocytes # (Manual) Eosinophils # (Manual) PT INR Sodium Potassium Chloride Carbon Dioxide BUN 30 H Creatinine 1.6 H Glucose 150 H POC Glucose Hemoglobin A1c Lactic Acid 2.70 H* Magnesium AST 67 H Total Creatine Kinase 2694 H Troponin T 0.056 H Albumin 3.7 L HDL Cholesterol 63 H Urine Creatinine 06/24/18 06/24/18 06/24/18 08:37 11:43 13:20 WBC [place] % (Auto) [place] # Seg Neutrophils % Seg Neuts % (Manual) Monocytes % (Manual) Seg Neutrophils # Seg Neutrophils # Man Monocytes # (Manual) Eosinophils # (Manual) PT 21.7 H INR 1.76 H Sodium Potassium Chloride Carbon Dioxide BUN Creatinine Glucose POC Glucose 147 H Hemoglobin A1c Lactic Acid 2.10 H* Magnesium AST Total Creatine Kinase Troponin T Albumin HDL Cholesterol Urine Creatinine 06/24/18 06/24/18 06/25/18 16:23 21:55 05:05 WBC [place] % (Auto) 12.0 H [place] # 1.2 H Seg Neutrophils % Seg Neuts % (Manual) Monocytes % (Manual) Seg Neutrophils # Seg Neutrophils # Man Monocytes # (Manual) Eosinophils # (Manual) PT INR Sodium Potassium Chloride Carbon Dioxide BUN Creatinine Glucose POC Glucose 129 H 141 H Hemoglobin A1c Lactic Acid Magnesium AST Total Creatine Kinase Troponin T Albumin HDL Cholesterol Urine Creatinine 06/25/18 06/25/18 06/25/18 05:05 07:49 07:54 WBC [place] % (Auto) [place] # Seg Neutrophils % Seg Neuts % (Manual) Monocytes % (Manual) Seg Neutrophils # Seg Neutrophils # Man Monocytes # (Manual) Eosinophils # (Manual) PT INR Sodium Potassium Chloride 110.8 H Carbon Dioxide 19 L BUN 29 H Creatinine Glucose 163 H POC Glucose 168 H Hemoglobin A1c Lactic Acid Magnesium AST Total Creatine Kinase 1644 H Troponin T 0.071 H D Albumin HDL Cholesterol Urine Creatinine 06/25/18 06/25/18 06/25/18 11:41 17:02 21:07 WBC [place] % (Auto) [place] # Seg Neutrophils % Seg Neuts % (Manual) Monocytes % (Manual) Seg Neutrophils # Seg Neutrophils # Man Monocytes # (Manual) Eosinophils # (Manual) PT INR Sodium Potassium Chloride Carbon Dioxide BUN Creatinine Glucose POC Glucose 175 H 192 H 187 H Hemoglobin A1c Lactic Acid Magnesium AST Total Creatine Kinase Troponin T Albumin HDL Cholesterol Urine Creatinine 06/26/18 06/26/18 06/26/18 04:57 04:57 04:57 WBC [place] % (Auto) 12.6 H [place] # 1.4 H Seg Neutrophils % 70.3 H Seg Neuts % (Manual) Monocytes % (Manual) Seg Neutrophils # Seg Neutrophils # Man Monocytes # (Manual) Eosinophils # (Manual) PT 21.1 H INR 1.70 H Sodium 148 H Potassium Chloride 111.9 H Carbon Dioxide 21 L BUN 32 H Creatinine Glucose 249 H POC Glucose Hemoglobin A1c Lactic Acid Magnesium AST Total Creatine Kinase Troponin T Albumin HDL Cholesterol Urine Creatinine 06/26/18 06/26/18 06/26/18 08:48 11:38 16:33 WBC [place] % (Auto) [place] # Seg Neutrophils % Seg Neuts % (Manual) Monocytes % (Manual) Seg Neutrophils # Seg Neutrophils # Man Monocytes # (Manual) Eosinophils # (Manual) PT INR Sodium Potassium Chloride Carbon Dioxide BUN Creatinine Glucose POC Glucose 253 H 269 H 239 H Hemoglobin A1c Lactic Acid Magnesium AST Total Creatine Kinase Troponin T Albumin HDL Cholesterol Urine Creatinine 06/26/18 06/27/18 06/27/18 22:13 04:47 04:47 WBC 11.9 H [place] % (Auto) 12.4 H [place] # 1.5 H Seg Neutrophils % Seg Neuts % (Manual) Monocytes % (Manual) Seg Neutrophils # 7.9 H Seg Neutrophils # Man Monocytes # (Manual) Eosinophils # (Manual) PT 20.6 H INR 1.65 H Sodium Potassium Chloride Carbon Dioxide BUN Creatinine Glucose POC Glucose 166 H Hemoglobin A1c Lactic Acid Magnesium AST Total Creatine Kinase Troponin T Albumin HDL Cholesterol Urine Creatinine 06/27/18 06/27/18 06/27/18 04:47 08:18 12:24 WBC [place] % (Auto) [place] # Seg Neutrophils % Seg Neuts % (Manual) Monocytes % (Manual) Seg Neutrophils # Seg Neutrophils # Man Monocytes # (Manual) Eosinophils # (Manual) PT INR Sodium 146 H Potassium Chloride 109.0 H Carbon Dioxide BUN 32 H Creatinine 1.6 H Glucose 299 H POC Glucose 343 H 329 H Hemoglobin A1c Lactic Acid Magnesium AST Total Creatine Kinase Troponin T Albumin 3.1 L HDL Cholesterol Urine Creatinine 06/27/18 06/27/18 06/28/18 17:29 21:32 03:28 WBC [place] % (Auto) [place] # Seg Neutrophils % Seg Neuts % (Manual) Monocytes % (Manual) Seg Neutrophils # Seg Neutrophils # Man Monocytes # (Manual) Eosinophils # (Manual) PT 19.3 H INR 1.52 H Sodium Potassium Chloride Carbon Dioxide BUN Creatinine Glucose POC Glucose 251 H 270 H Hemoglobin A1c Lactic Acid Magnesium AST Total Creatine Kinase Troponin T Albumin HDL Cholesterol Urine Creatinine 06/28/18 06/28/18 06/28/18 03:28 08:05 09:21 WBC [place] % (Auto) [place] # Seg Neutrophils % Seg Neuts % (Manual) Monocytes % (Manual) Seg Neutrophils # Seg Neutrophils # Man Monocytes # (Manual) Eosinophils # (Manual) PT INR Sodium 146 H Potassium Chloride 110.3 H Carbon Dioxide 21 L BUN 37 H Creatinine 1.7 H Glucose 446 H POC Glucose 442 H 451 H Hemoglobin A1c Lactic Acid Magnesium AST Total Creatine Kinase Troponin T Albumin HDL Cholesterol Urine Creatinine 06/28/18 06/28/18 06/28/18 11:40 17:38 23:28 WBC [place] % (Auto) [place] # Seg Neutrophils % Seg Neuts % (Manual) Monocytes % (Manual) Seg Neutrophils # Seg Neutrophils # Man Monocytes # (Manual) Eosinophils # (Manual) PT INR Sodium Potassium Chloride Carbon Dioxide BUN Creatinine Glucose POC Glucose 407 H 390 H 412 H Hemoglobin A1c Lactic Acid Magnesium AST Total Creatine Kinase Troponin T Albumin HDL Cholesterol Urine Creatinine 06/29/18 06/29/18 06/29/18 03:10 03:15 03:39 WBC [place] % (Auto) [place] # Seg Neutrophils % Seg Neuts % (Manual) Monocytes % (Manual) Seg Neutrophils # Seg Neutrophils # Man Monocytes # (Manual) Eosinophils # (Manual) PT 23.9 H INR 1.99 H Sodium Potassium Chloride Carbon Dioxide BUN Creatinine Glucose POC Glucose > 500 H 273 H Hemoglobin A1c Lactic Acid Magnesium AST Total Creatine Kinase Troponin T Albumin HDL Cholesterol Urine Creatinine 06/29/18 06/29/18 06/29/18 03:39 06:04 08:40 WBC [place] % (Auto) [place] # Seg Neutrophils % Seg Neuts % (Manual) Monocytes % (Manual) Seg Neutrophils # Seg Neutrophils # Man Monocytes # (Manual) Eosinophils # (Manual) PT INR Sodium 147 H Potassium Chloride 110.6 H Carbon Dioxide BUN 53 H Creatinine 2.3 H Glucose 551 H* POC Glucose 496 H 398 H Hemoglobin A1c Lactic Acid Magnesium AST Total Creatine Kinase Troponin T Albumin HDL Cholesterol Urine Creatinine 06/29/18 06/29/18 06/29/18 10:41 11:26 16:09 WBC [place] % (Auto) [place] # Seg Neutrophils % Seg Neuts % (Manual) Monocytes % (Manual) Seg Neutrophils # Seg Neutrophils # Man Monocytes # (Manual) Eosinophils # (Manual) PT INR Sodium Potassium Chloride Carbon Dioxide BUN Creatinine Glucose POC Glucose 432 H 286 H Hemoglobin A1c 9.8 H Lactic Acid Magnesium AST Total Creatine Kinase Troponin T Albumin HDL Cholesterol Urine Creatinine 06/29/18 06/29/18 06/29/18 17:40 18:19 20:57 WBC [place] % (Auto) [place] # Seg Neutrophils % Seg Neuts % (Manual) Monocytes % (Manual) Seg Neutrophils # Seg Neutrophils # Man Monocytes # (Manual) Eosinophils # (Manual) PT INR Sodium Potassium Chloride Carbon Dioxide BUN Creatinine Glucose POC Glucose 263 H 197 H Hemoglobin A1c Lactic Acid Magnesium AST Total Creatine Kinase Troponin T Albumin HDL Cholesterol Urine Creatinine 69.3 H 06/30/18 06/30/18 06/30/18 00:23 04:40 04:40 WBC [place] % (Auto) [place] # Seg Neutrophils % Seg Neuts % (Manual) Monocytes % (Manual) Seg Neutrophils # Seg Neutrophils # Man Monocytes # (Manual) Eosinophils # (Manual) PT 24.4 H INR 2.04 H Sodium 150 H Potassium 5.1 H Chloride 114.6 H Carbon Dioxide BUN 46 H Creatinine 2.1 H Glucose 271 H POC Glucose 177 H Hemoglobin A1c Lactic Acid Magnesium 2.70 H AST Total Creatine Kinase Troponin T Albumin HDL Cholesterol Urine Creatinine 06/30/18 06/30/18 06/30/18 04:40 05:34 08:51 WBC 20.3 H [place] % (Auto) [place] # Seg Neutrophils % Seg Neuts % (Manual) 73.0 H Monocytes % (Manual) 8.0 H Seg Neutrophils # Seg Neutrophils # Man 14.8 H Monocytes # (Manual) 1.6 H Eosinophils # (Manual) 0.6 H PT INR Sodium Potassium Chloride Carbon Dioxide BUN Creatinine Glucose POC Glucose 251 H 299 H Hemoglobin A1c Lactic Acid Magnesium AST Total Creatine Kinase Troponin T Albumin HDL Cholesterol Urine Creatinine 06/30/18 15:50 WBC [place] % (Auto) [place] # Seg Neutrophils % Seg Neuts % (Manual) Monocytes % (Manual) Seg Neutrophils # Seg Neutrophils # Man Monocytes # (Manual) Eosinophils # (Manual) PT INR Sodium Potassium Chloride Carbon Dioxide BUN Creatinine Glucose POC Glucose 304 H Hemoglobin A1c Lactic Acid Magnesium AST Total Creatine Kinase Troponin T Albumin HDL Cholesterol Urine Creatinine
[2018-06-30] MEDS ORDERED: TYLENOL FEEDTUBE PRN (19:49)
[2018-07-01 06:46] LABS: INR 1.86 (0.87-1.13)
[2018-07-01 07:09] LABS: Calcium 9.7 mg/dL (8.4-10.2)
--- NOTE | 2018-07-01 07:33 | Consultation ---
HISTORY OF PRESENT ILLNESS: This is a 72-year-old black male that was initially entered at [facility] through the Emergency Room on 06/24/2018. The patient was initially presented to the hospital with altered mental status and had a last known well time 3 days prior to admission and was found in bed, speaking incoherently with altered mental status, confusion. Initial examination showed he had a prior history of heart failure, hypertension, atrial fibrillation and was admitted to the hospital. He had been taking Coumadin therapy 5 mg daily, losartan, gabapentin, furosemide, metoprolol. On presentation to the hospital, initial CT scan showed an internal remote lacunar infarct in the lower sterling. There was no other acute evidence of stroke or hemorrhage. It was also noted to be age-related volume with lacunar infarcts in the right basal ganglia and the right sterling with no evidence of an acute stroke. The patient was felt to have encephalopathy, dehydration, acute renal insufficiency and altered mental state related to and also atrial fibrillation. The patient was admitted to the hospital and on the 06/24/2018, he had an MRA of the brain, which was difficult to assess because of the movement type artifact. There was patency of the internal carotid artery, first portion of the middle cerebral artery. No clear lesions, but as mentioned the movement artifact was quite severe. There was however flow within the anterior cerebrals and also flow in the posterior middle cerebral artery complexes of the left cerebral hemisphere, although there may be some gradual reduction in flow noted. Movement artifact obscures some of the additional images. It was quite clearly the proximal portions of the middle cerebral artery of the left hemisphere and right hemispheres were patent. Subsequently, the patient did have an additional MRI scan of the brain, which was done on the same day. MRI scan showed unremarkable appearing contreras and white matter of the right and left cerebral hemisphere. There was widespread atrophy of the right hemisphere, but no evidence of any acute stroke. 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 The patient was subsequently evaluated by me on followup evaluation. He had a very mild left-sided weakness. He was fully alert, conscious controlling speech. He was wishing to eat, seems to be improving in the days following admission and then on the Friday, the 06/29/2018 or 5 days subsequent to his admission, he was noted to be less responsive by the nursing staff. This was reported to Dr. Day and a CT scan of the head done, which was called about to reassess. At this point, there is evidence of a large infarct of the right hemisphere, which is a very acute change. This seems to have arisen in the area of the proximal right middle cerebral artery and distal structures, there is evidence also of edema in this region. 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 There is a slight right to left shift, a scant amount of hemorrhagic transformation being present with edema in that region. IMPRESSION: This patient clearly has had a second stroke, which is in a distribution, which was previously noted to be patent on the MRA and did not show a clot on the MRI or a clot on the CT of the head. Echocardiogram was noted. I also note that he is still in atrial fibrillation. JOB# [id number] DILSHAD/JUAN
--- NOTE | 2018-07-01 07:54 | Progress Note ---
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 High WBC noted. CAD Hypertension Past medical history of stroke Acute kidney injury Recommendations Aspiration precautions, elevate head of bed Gentle fluids Nothing by mouth Warfarin already on hold Mannitol per neuro Continue oxygen support and oximetry approximately 93% DVT prophylaxis Overall prognosis appears to be poor in view of neurological status. Now DNR pending hospice Discussed plan of care and orders with staff in detail. Critical care time was 40 minutes of [id number] evaluation and coordination of care Subjective Date of service: 07/01/18 Principal diagnosis: progressive stroke, stupor Interval history: n/a Objective Vital Signs - 12hr 06/30/18 06/30/18 06/30/18 20:00 20:11 20:21 Temperature 100.9 F H Pulse Rate 102 H 103 H 95 H Pulse Rate [ From Monitor] Pulse Rate [ Right Dorsalis Pedis] Respiratory 25 H 33 H 24 Rate Blood Pressure 122/74 122/74 122/74 O2 Sat by Pulse 97 100 98 Oximetry 06/30/18 06/30/18 06/30/18 20:31 20:41 20:51 Temperature Pulse Rate 104 H 102 H 99 H Pulse Rate [ From Monitor] Pulse Rate [ Right Dorsalis Pedis] Respiratory 24 23 24 Rate Blood Pressure 122/74 122/74 122/74 O2 Sat by Pulse 99 99 99 Oximetry 06/30/18 06/30/18 06/30/18 21:00 21:11 21:16 Temperature Pulse Rate 96 H 97 H 98 H Pulse Rate [ From Monitor] Pulse Rate [ Right Dorsalis Pedis] Respiratory 28 H 24 Rate Blood Pressure 101/62 101/62 101/62 O2 Sat by Pulse 96 99 Oximetry 06/30/18 06/30/18 06/30/18 21:21 21:31 21:41 Temperature Pulse Rate 95 H 101 H 93 H Pulse Rate [ From Monitor] Pulse Rate [ Right Dorsalis Pedis] Respiratory 23 23 22 Rate Blood Pressure 101/62 101/62 101/62 O2 Sat by Pulse 99 99 99 Oximetry 06/30/18 06/30/18 06/30/18 21:51 22:00 22:11 Temperature Pulse Rate 91 H 101 H 105 H Pulse Rate [ From Monitor] Pulse Rate [ Right Dorsalis Pedis] Respiratory 24 24 24 Rate Blood Pressure 101/62 110/64 110/64 O2 Sat by Pulse 99 94 99 Oximetry 06/30/18 06/30/18 06/30/18 22:21 22:51 23:01 Temperature Pulse Rate 101 H 100 H 107 H Pulse Rate [ From Monitor] Pulse Rate [ Right Dorsalis Pedis] Respiratory 22 19 18 Rate Blood Pressure 110/64 110/64 109/71 O2 Sat by Pulse 99 97 99 Oximetry 06/30/18 06/30/18 06/30/18 23:11 23:21 23:31 Temperature Pulse Rate 92 H 105 H 107 H Pulse Rate [ From Monitor] Pulse Rate [ Right Dorsalis Pedis] Respiratory 20 22 27 H Rate Blood Pressure 109/71 110/64 110/64 O2 Sat by Pulse 99 100 100 Oximetry 06/30/18 06/30/18 07/01/18 23:41 23:51 00:00 Temperature 99.1 F Pulse Rate 97 H 102 H 98 H Pulse Rate [ 94 H From Monitor] Pulse Rate [ 94 H Right Dorsalis Pedis] Respiratory 21 20 19 Rate Blood Pressure 110/64 109/71 119/71 O2 Sat by Pulse 99 99 98 Oximetry 07/01/18 07/01/18 07/01/18 00:11 00:21 00:31 Temperature Pulse Rate 106 H 103 H 114 H Pulse Rate [ From Monitor] Pulse Rate [ Right Dorsalis Pedis] Respiratory 25 H 22 23 Rate Blood Pressure 119/71 119/71 119/71 O2 Sat by Pulse 99 99 99 Oximetry 07/01/18 07/01/18 07/01/18 00:41 00:51 01:00 Temperature Pulse Rate 105 H 102 H 112 H Pulse Rate [ From Monitor] Pulse Rate [ Right Dorsalis Pedis] Respiratory 24 20 19 Rate Blood Pressure 119/71 119/71 128/79 O2 Sat by Pulse 99 99 99 Oximetry 07/01/18 07/01/18 07/01/18 01:11 01:21 01:31 Temperature Pulse Rate 112 H 109 H 112 H Pulse Rate [ From Monitor] Pulse Rate [ Right Dorsalis Pedis] Respiratory 23 25 H 20 Rate Blood Pressure 128/79 128/79 128/79 O2 Sat by Pulse 99 99 99 Oximetry 07/01/18 07/01/18 07/01/18 01:41 01:51 02:00 Temperature Pulse Rate 104 H 109 H 107 H Pulse Rate [ From Monitor] Pulse Rate [ Right Dorsalis Pedis] Respiratory 25 H 19 19 Rate Blood Pressure 128/79 128/79 124/73 O2 Sat by Pulse 99 98 98 Oximetry 07/01/18 07/01/18 07/01/18 02:11 02:21 02:31 Temperature Pulse Rate 108 H 109 H 120 H Pulse Rate [ From Monitor] Pulse Rate [ Right Dorsalis Pedis] Respiratory 18 24 22 Rate Blood Pressure 124/73 124/73 124/73 O2 Sat by Pulse 98 98 99 Oximetry 07/01/18 07/01/18 07/01/18 02:41 02:51 03:00 Temperature Pulse Rate 126 H 114 H 119 H Pulse Rate [ From Monitor] Pulse Rate [ Right Dorsalis Pedis] Respiratory 20 26 H 19 Rate Blood Pressure 124/73 124/73 132/80 O2 Sat by Pulse 98 98 97 Oximetry 07/01/18 07/01/18 07/01/18 03:11 03:21 03:31 Temperature Pulse Rate 93 H 86 84 Pulse Rate [ From Monitor] Pulse Rate [ Right Dorsalis Pedis] Respiratory 25 H 18 19 Rate Blood Pressure 132/80 132/80 132/80 O2 Sat by Pulse 99 98 99 Oximetry 07/01/18 07/01/18 07/01/18 03:41 03:51 04:00 Temperature 99.9 F H Pulse Rate 77 91 H 96 H Pulse Rate [ 90 From Monitor] Pulse Rate [ 89 Right Dorsalis Pedis] Respiratory 24 26 H 25 H Rate Blood Pressure 132/80 132/80 120/73 O2 Sat by Pulse 98 98 99 Oximetry 07/01/18 07/01/18 07/01/18 04:11 04:20 04:31 Temperature Pulse Rate 97 H 84 83 Pulse Rate [ From Monitor] Pulse Rate [ Right Dorsalis Pedis] Respiratory 20 21 21 Rate Blood Pressure 120/73 120/73 120/73 O2 Sat by Pulse 99 99 99 Oximetry 07/01/18 07/01/18 07/01/18 04:41 04:51 05:00 Temperature Pulse Rate 94 H 96 H 104 H Pulse Rate [ From Monitor] Pulse Rate [ Right Dorsalis Pedis] Respiratory 22 16 27 H Rate Blood Pressure 120/73 120/73 133/77 O2 Sat by Pulse 99 98 98 Oximetry 07/01/18 07/01/18 07/01/18 05:11 05:21 05:30 Temperature Pulse Rate 108 H 92 H 98 H Pulse Rate [ From Monitor] Pulse Rate [ Right Dorsalis Pedis] Respiratory 21 24 21 Rate Blood Pressure 133/77 133/77 133/77 O2 Sat by Pulse 98 98 98 Oximetry 07/01/18 07/01/18 07/01/18 05:41 05:51 06:00 Temperature Pulse Rate 108 H 107 H 100 H Pulse Rate [ From Monitor] Pulse Rate [ Right Dorsalis Pedis] Respiratory 19 21 20 Rate Blood Pressure 133/77 133/77 127/76 O2 Sat by Pulse 98 99 98 Oximetry 07/01/18 07/01/18 07/01/18 06:11 06:21 06:31 Temperature Pulse Rate 109 H 119 H 110 H Pulse Rate [ From Monitor] Pulse Rate [ Right Dorsalis Pedis] Respiratory 23 27 H 22 Rate Blood Pressure 127/76 127/76 127/76 O2 Sat by Pulse 99 98 98 Oximetry 07/01/18 06:41 Temperature Pulse Rate 107 H Pulse Rate [ From Monitor] Pulse Rate [ Right Dorsalis Pedis] Respiratory 22 Rate Blood Pressure 127/76 O2 Sat by Pulse 98 Oximetry Constitutional: other (mild distress, osteoporosis) Eyes: non-icteric ENT: oropharynx moist, other Neck: supple, no JVD Ascultation: Bilateral: clear, diminished breath sounds, rhonchi (occasional transmitted) Cardiovascular: irregular rhythm Gastrointestinal: normoactive bowel sounds, non-distended Extremities: no cyanosis, no edema Neurologic: other (patient is stuporous. Pupils are slowly reactive but equal. Poor corneals. No response to pain. No posturing) CBC and BMP: 06/30/18 04:40 07/01/18 06:10 ABG, PT/INR, D-dimer: PT/INR, D-dimer PT 22.7 Sec. (12.2-14.9) H 07/01/18 06:10 INR 1.86 (0.87-1.13) H 07/01/18 06:10 Abnormal lab findings: Abnormal Labs 06/24/18 06/24/18 06/24/18 06:05 06:15 06:23 WBC 12.8 H Cass % (Auto) 11.3 H Cass # 1.5 H Seg Neutrophils % 74.3 H Seg Neuts % (Manual) Monocytes % (Manual) Seg Neutrophils # 9.5 H Seg Neutrophils # Man Monocytes # (Manual) Eosinophils # (Manual) PT INR Sodium Potassium Chloride Carbon Dioxide BUN 30 H Creatinine 1.6 H Glucose 150 H POC Glucose Hemoglobin A1c Lactic Acid 2.70 H* Magnesium AST 67 H Total Creatine Kinase 2694 H Troponin T 0.056 H Albumin 3.7 L HDL Cholesterol 63 H Urine Creatinine 06/24/18 06/24/18 06/24/18 08:37 11:43 13:20 WBC Cass % (Auto) Cass # Seg Neutrophils % Seg Neuts % (Manual) Monocytes % (Manual) Seg Neutrophils # Seg Neutrophils # Man Monocytes # (Manual) Eosinophils # (Manual) PT 21.7 H INR 1.76 H Sodium Potassium Chloride Carbon Dioxide BUN Creatinine Glucose POC Glucose 147 H Hemoglobin A1c Lactic Acid 2.10 H* Magnesium AST Total Creatine Kinase Troponin T Albumin HDL Cholesterol Urine Creatinine 06/24/18 06/24/18 06/25/18 16:23 21:55 05:05 WBC Cass % (Auto) 12.0 H Cass # 1.2 H Seg Neutrophils % Seg Neuts % (Manual) Monocytes % (Manual) Seg Neutrophils # Seg Neutrophils # Man Monocytes # (Manual) Eosinophils # (Manual) PT INR Sodium Potassium Chloride Carbon Dioxide BUN Creatinine Glucose POC Glucose 129 H 141 H Hemoglobin A1c Lactic Acid Magnesium AST Total Creatine Kinase Troponin T Albumin HDL Cholesterol Urine Creatinine 06/25/18 06/25/18 06/25/18 05:05 07:49 07:54 WBC Cass % (Auto) Cass # Seg Neutrophils % Seg Neuts % (Manual) Monocytes % (Manual) Seg Neutrophils # Seg Neutrophils # Man Monocytes # (Manual) Eosinophils # (Manual) PT INR Sodium Potassium Chloride 110.8 H Carbon Dioxide 19 L BUN 29 H Creatinine Glucose 163 H POC Glucose 168 H Hemoglobin A1c Lactic Acid Magnesium AST Total Creatine Kinase 1644 H Troponin T 0.071 H D Albumin HDL Cholesterol Urine Creatinine 06/25/18 06/25/18 06/25/18 11:41 17:02 21:07 WBC Cass % (Auto) Cass # Seg Neutrophils % Seg Neuts % (Manual) Monocytes % (Manual) Seg Neutrophils # Seg Neutrophils # Man Monocytes # (Manual) Eosinophils # (Manual) PT INR Sodium Potassium Chloride Carbon Dioxide BUN Creatinine Glucose POC Glucose 175 H 192 H 187 H Hemoglobin A1c Lactic Acid Magnesium AST Total Creatine Kinase Troponin T Albumin HDL Cholesterol Urine Creatinine 06/26/18 06/26/18 06/26/18 04:57 04:57 04:57 WBC Cass % (Auto) 12.6 H Cass # 1.4 H Seg Neutrophils % 70.3 H Seg Neuts % (Manual) Monocytes % (Manual) Seg Neutrophils # Seg Neutrophils # Man Monocytes # (Manual) Eosinophils # (Manual) PT 21.1 H INR 1.70 H Sodium 148 H Potassium Chloride 111.9 H Carbon Dioxide 21 L BUN 32 H Creatinine Glucose 249 H POC Glucose Hemoglobin A1c Lactic Acid Magnesium AST Total Creatine Kinase Troponin T Albumin HDL Cholesterol Urine Creatinine 06/26/18 06/26/18 06/26/18 08:48 11:38 16:33 WBC Cass % (Auto) Cass # Seg Neutrophils % Seg Neuts % (Manual) Monocytes % (Manual) Seg Neutrophils # Seg Neutrophils # Man Monocytes # (Manual) Eosinophils # (Manual) PT INR Sodium Potassium Chloride Carbon Dioxide BUN Creatinine Glucose POC Glucose 253 H 269 H 239 H Hemoglobin A1c Lactic Acid Magnesium AST Total Creatine Kinase Troponin T Albumin HDL Cholesterol Urine Creatinine 06/26/18 06/27/18 06/27/18 22:13 04:47 04:47 WBC 11.9 H Cass % (Auto) 12.4 H Cass # 1.5 H Seg Neutrophils % Seg Neuts % (Manual) Monocytes % (Manual) Seg Neutrophils # 7.9 H Seg Neutrophils # Man Monocytes # (Manual) Eosinophils # (Manual) PT 20.6 H INR 1.65 H Sodium Potassium Chloride Carbon Dioxide BUN Creatinine Glucose POC Glucose 166 H Hemoglobin A1c Lactic Acid Magnesium AST Total Creatine Kinase Troponin T Albumin HDL Cholesterol Urine Creatinine 06/27/18 06/27/18 06/27/18 04:47 08:18 12:24 WBC Cass % (Auto) Cass # Seg Neutrophils % Seg Neuts % (Manual) Monocytes % (Manual) Seg Neutrophils # Seg Neutrophils # Man Monocytes # (Manual) Eosinophils # (Manual) PT INR Sodium 146 H Potassium Chloride 109.0 H Carbon Dioxide BUN 32 H Creatinine 1.6 H Glucose 299 H POC Glucose 343 H 329 H Hemoglobin A1c Lactic Acid Magnesium AST Total Creatine Kinase Troponin T Albumin 3.1 L HDL Cholesterol Urine Creatinine 06/27/18 06/27/18 06/28/18 17:29 21:32 03:28 WBC Cass % (Auto) Cass # Seg Neutrophils % Seg Neuts % (Manual) Monocytes % (Manual) Seg Neutrophils # Seg Neutrophils # Man Monocytes # (Manual) Eosinophils # (Manual) PT 19.3 H INR 1.52 H Sodium Potassium Chloride Carbon Dioxide BUN Creatinine Glucose POC Glucose 251 H 270 H Hemoglobin A1c Lactic Acid Magnesium AST Total Creatine Kinase Troponin T Albumin HDL Cholesterol Urine Creatinine 06/28/18 06/28/18 06/28/18 03:28 08:05 09:21 WBC Cass % (Auto) Cass # Seg Neutrophils % Seg Neuts % (Manual) Monocytes % (Manual) Seg Neutrophils # Seg Neutrophils # Man Monocytes # (Manual) Eosinophils # (Manual) PT INR Sodium 146 H Potassium Chloride 110.3 H Carbon Dioxide 21 L BUN 37 H Creatinine 1.7 H Glucose 446 H POC Glucose 442 H 451 H Hemoglobin A1c Lactic Acid Magnesium AST Total Creatine Kinase Troponin T Albumin HDL Cholesterol Urine Creatinine 06/28/18 06/28/18 06/28/18 11:40 17:38 23:28 WBC Cass % (Auto) Cass # Seg Neutrophils % Seg Neuts % (Manual) Monocytes % (Manual) Seg Neutrophils # Seg Neutrophils # Man Monocytes # (Manual) Eosinophils # (Manual) PT INR Sodium Potassium Chloride Carbon Dioxide BUN Creatinine Glucose POC Glucose 407 H 390 H 412 H Hemoglobin A1c Lactic Acid Magnesium AST Total Creatine Kinase Troponin T Albumin HDL Cholesterol Urine Creatinine 06/29/18 06/29/18 06/29/18 03:10 03:15 03:39 WBC Cass % (Auto) Cass # Seg Neutrophils % Seg Neuts % (Manual) Monocytes % (Manual) Seg Neutrophils # Seg Neutrophils # Man Monocytes # (Manual) Eosinophils # (Manual) PT 23.9 H INR 1.99 H Sodium Potassium Chloride Carbon Dioxide BUN Creatinine Glucose POC Glucose > 500 H 273 H Hemoglobin A1c Lactic Acid Magnesium AST Total Creatine Kinase Troponin T Albumin HDL Cholesterol Urine Creatinine 06/29/18 06/29/18 06/29/18 03:39 06:04 08:40 WBC Cass % (Auto) Cass # Seg Neutrophils % Seg Neuts % (Manual) Monocytes % (Manual) Seg Neutrophils # Seg Neutrophils # Man Monocytes # (Manual) Eosinophils # (Manual) PT INR Sodium 147 H Potassium Chloride 110.6 H Carbon Dioxide BUN 53 H Creatinine 2.3 H Glucose 551 H* POC Glucose 496 H 398 H Hemoglobin A1c Lactic Acid Magnesium AST Total Creatine Kinase Troponin T Albumin HDL Cholesterol Urine Creatinine 0406/29/18 06/29/18 10:41 11:26 16:09 WBC Cass % (Auto) Cass # Seg Neutrophils % Seg Neuts % (Manual) Monocytes % (Manual) Seg Neutrophils # Seg Neutrophils # Man Monocytes # (Manual) Eosinophils # (Manual) PT INR Sodium Potassium Chloride Carbon Dioxide BUN Creatinine Glucose POC Glucose 432 H 286 H Hemoglobin A1c 9.8 H Lactic Acid Magnesium AST Total Creatine Kinase Troponin T Albumin HDL Cholesterol Urine Creatinine 06/29/18 06/29/18 06/29/18 17:40 18:19 20:57 WBC Cass % (Auto) Cass # Seg Neutrophils % Seg Neuts % (Manual) Monocytes % (Manual) Seg Neutrophils # Seg Neutrophils # Man Monocytes # (Manual) Eosinophils # (Manual) PT INR Sodium Potassium Chloride Carbon Dioxide BUN Creatinine Glucose POC Glucose 263 H 197 H Hemoglobin A1c Lactic Acid Magnesium AST Total Creatine Kinase Troponin T Albumin HDL Cholesterol Urine Creatinine 69.3 H 06/30/18 06/30/18 06/30/18 00:23 04:40 04:40 WBC Cass % (Auto) Cass # Seg Neutrophils % Seg Neuts % (Manual) Monocytes % (Manual) Seg Neutrophils # Seg Neutrophils # Man Monocytes # (Manual) Eosinophils # (Manual) PT 24.4 H INR 2.04 H Sodium 150 H Potassium 5.1 H Chloride 114.6 H Carbon Dioxide BUN 46 H Creatinine 2.1 H Glucose 271 H POC Glucose 177 H Hemoglobin A1c Lactic Acid Magnesium 2.70 H AST Total Creatine Kinase Troponin T Albumin HDL Cholesterol Urine Creatinine 06/30/18 06/30/18 06/30/18 04:40 05:34 08:51 WBC 20.3 H Cass % (Auto) Cass # Seg Neutrophils % Seg Neuts % (Manual) 73.0 H Monocytes % (Manual) 8.0 H Seg Neutrophils # Seg Neutrophils # Man 14.8 H Monocytes # (Manual) 1.6 H Eosinophils # (Manual) 0.6 H PT INR Sodium Potassium Chloride Carbon Dioxide BUN Creatinine Glucose POC Glucose 251 H 299 H Hemoglobin A1c Lactic Acid Magnesium AST Total Creatine Kinase Troponin T Albumin HDL Cholesterol Urine Creatinine 06/30/18 06/30/18 06/30/18 15:50 21:06 23:40 WBC Cass % (Auto) Cass # Seg Neutrophils % Seg Neuts % (Manual) Monocytes % (Manual) Seg Neutrophils # Seg Neutrophils # Man Monocytes # (Manual) Eosinophils # (Manual) PT INR Sodium Potassium Chloride Carbon Dioxide BUN Creatinine Glucose POC Glucose 304 H 194 H 147 H Hemoglobin A1c Lactic Acid Magnesium AST Total Creatine Kinase Troponin T Albumin HDL Cholesterol Urine Creatinine 07/01/18 07/01/18 07/01/18 05:44 06:10 06:10 WBC Cass % (Auto) Cass # Seg Neutrophils % Seg Neuts % (Manual) Monocytes % (Manual) Seg Neutrophils # Seg Neutrophils # Man Monocytes # (Manual) Eosinophils # (Manual) PT 22.7 H INR 1.86 H Sodium 153 H Potassium Chloride 118.1 H Carbon Dioxide BUN 59 H Creatinine 2.7 H Glucose 161 H POC Glucose 126 H Hemoglobin A1c Lactic Acid Magnesium AST Total Creatine Kinase Troponin T Albumin HDL Cholesterol Urine Creatinine
--- NOTE | 2018-07-01 09:19 | Progress Note ---
Assessment and Plan Acute CVA Lactic acidosis Multiple metabolic abnormalities Hypertension Diabetes -uncontrolled Hx of CAD with 3v CABG in 1999 [facility] 2014 reports patent bypass grafts EF 50-55% by echocardiogram this admission Paroxysmal afib - rate uncontrolled currently in afib; on metoprolol for rate control Warfarin held due to minimal hemorrhage within the right MCA distribution Abnormal troponin in the setting of rhabdomyolysis Fever and leukocytosis DNR Recommendations: Continue rate control strategy Add low dose diltiazem to po metoprolol No anticoagulation due to minimal ICH Subjective Date of service: 07/01/18 Principal diagnosis: progressive stroke, stupor Interval history: Patient continues to be unresponsive this morning Tele showing afib with RVR Objective Vital Signs Temp Pulse Pulse Pulse Resp BP Pulse Ox 07/01/18 08:00 103.9 F H 07/01/18 06:41 107 H 22 127/76 98 07/01/18 06:31 110 H 22 127/76 98 07/01/18 06:21 119 H 27 H 127/76 98 07/01/18 06:11 109 H 23 127/76 99 07/01/18 06:00 100 H 20 127/76 98 07/01/18 05:51 107 H 21 133/77 99 07/01/18 05:41 108 H 19 133/77 98 07/01/18 05:30 98 H 21 133/77 98 07/01/18 05:21 92 H 24 133/77 98 07/01/18 05:11 108 H 21 133/77 98 07/01/18 05:00 104 H 27 H 133/77 98 07/01/18 04:51 96 H 16 120/73 98 07/01/18 04:41 94 H 22 120/73 99 07/01/18 04:31 83 21 120/73 99 07/01/18 04:20 84 21 120/73 99 07/01/18 04:11 97 H 20 120/73 99 07/01/18 04:00 99.9 F H 96 H 90 89 25 H 120/73 99 07/01/18 03:51 91 H 26 H 132/80 98 07/01/18 03:41 77 24 132/80 98 07/01/18 03:31 84 19 132/80 99 07/01/18 03:21 86 18 132/80 98 07/01/18 03:11 93 H 25 H 132/80 99 07/01/18 03:00 119 H 19 132/80 97 07/01/18 02:51 114 H 26 H 124/73 98 07/01/18 02:41 126 H 20 124/73 98 07/01/18 02:31 120 H 22 124/73 99 07/01/18 02:21 109 H 24 124/73 98 07/01/18 02:11 108 H 18 124/73 98 07/01/18 02:00 107 H 19 124/73 98 07/01/18 01:51 109 H 19 128/79 98 07/01/18 01:41 104 H 25 H 128/79 99 07/01/18 01:31 112 H 20 128/79 99 07/01/18 01:21 109 H 25 H 128/79 99 07/01/18 01:11 112 H 23 128/79 99 07/01/18 01:00 112 H 19 128/79 99 07/01/18 00:51 102 H 20 119/71 99 07/01/18 00:41 105 H 24 119/71 99 07/01/18 00:31 114 H 23 119/71 99 07/01/18 00:21 103 H 22 119/71 99 07/01/18 00:11 106 H 25 H 119/71 99 07/01/18 00:00 99.1 F 98 H 94 H 94 H 19 119/71 98 06/30/18 23:51 102 H 20 109/71 99 06/30/18 23:41 97 H 21 110/64 99 06/30/18 23:31 107 H 27 H 110/64 100 06/30/18 23:21 105 H 22 110/64 100 06/30/18 23:11 92 H 20 109/71 99 06/30/18 23:01 107 H 18 109/71 99 06/30/18 22:51 100 H 19 110/64 97 06/30/18 22:21 101 H 22 110/64 99 06/30/18 22:11 105 H 24 110/64 99 06/30/18 22:00 101 H 24 110/64 94 06/30/18 21:51 91 H 24 101/62 99 06/30/18 21:41 93 H 22 101/62 99 06/30/18 21:31 101 H 23 101/62 99 06/30/18 21:21 95 H 23 101/62 99 06/30/18 21:16 98 H 101/62 06/30/18 21:11 97 H 24 101/62 99 06/30/18 21:00 96 H 28 H 101/62 96 06/30/18 20:51 99 H 24 122/74 99 06/30/18 20:41 102 H 23 122/74 99 06/30/18 20:31 104 H 24 122/74 99 06/30/18 20:21 95 H 24 122/74 98 06/30/18 20:11 103 H 33 H 122/74 100 06/30/18 20:00 100.9 F H 102 H 25 H 122/74 97 06/30/18 19:51 84 35 H 116/64 100 06/30/18 19:41 93 H 24 116/64 99 06/30/18 19:31 92 H 32 H 116/64 99 06/30/18 19:21 95 H 28 H 116/64 99 06/30/18 19:11 95 H 33 H 116/64 99 06/30/18 19:00 90 26 H 116/64 96 06/30/18 18:51 89 33 H 112/63 99 06/30/18 18:41 85 27 H 112/63 99 06/30/18 18:39 92 H 30 H 112/63 99 06/30/18 18:31 94 H 33 H 112/63 99 06/30/18 18:21 91 H 27 H 112/63 99 06/30/18 18:11 93 H 34 H 112/63 99 06/30/18 18:00 89 26 H 112/63 96 06/30/18 17:51 96 H 28 H 107/67 99 06/30/18 17:41 92 H 28 H 107/67 99 06/30/18 17:36 99 06/30/18 17:31 103 H 36 H 107/67 99 06/30/18 17:21 97 H 24 107/67 99 06/30/18 17:11 93 H 28 H 107/67 99 06/30/18 17:00 99 H 29 H 107/67 96 06/30/18 16:51 95 H 28 H 129/74 99 06/30/18 16:41 96 H 28 H 129/74 99 06/30/18 16:31 100 H 29 H 129/74 99 06/30/18 16:21 104 H 29 H 129/74 99 06/30/18 16:11 111 H 35 H 129/74 99 06/30/18 16:01 102.6 F H 35 H 129/74 100 06/30/18 16:00 100 H 90 89 29 H 129/74 95 06/30/18 15:51 99 H 28 H 119/74 99 06/30/18 15:41 99 H 32 H 119/74 99 06/30/18 15:31 101 H 24 119/74 100 06/30/18 15:21 103 H 35 H 119/74 99 06/30/18 15:11 101 H 27 H 119/74 99 06/30/18 15:00 103 H 28 H 119/74 97 06/30/18 14:51 107 H 27 H 120/78 99 06/30/18 14:41 94 H 34 H 120/78 99 06/30/18 14:31 95 H 35 H 120/78 99 06/30/18 14:21 93 H 28 H 120/78 98 06/30/18 14:11 88 34 H 120/78 98 06/30/18 14:00 105 H 29 H 120/78 98 06/30/18 13:51 93 H 30 H 119/68 99 06/30/18 13:41 91 H 29 H 119/68 99 06/30/18 13:31 96 H 35 H 119/68 99 06/30/18 13:21 89 33 H 119/68 99 06/30/18 13:11 99 H 27 H 119/68 99 06/30/18 13:00 92 H 28 H 119/68 98 06/30/18 12:51 95 H 33 H 127/69 99 06/30/18 12:41 93 H 27 H 127/69 99 06/30/18 12:31 88 31 H 127/69 99 06/30/18 12:21 93 H 34 H 127/69 99 06/30/18 12:11 93 H 27 H 127/69 99 06/30/18 12:00 87 112 H 112 H 33 H 127/69 95 06/30/18 11:51 92 H 30 H 114/63 99 06/30/18 11:41 82 33 H 114/63 99 06/30/18 11:31 83 31 H 114/63 99 06/30/18 11:20 89 27 H 147/71 99 06/30/18 11:11 86 26 H 114/63 99 06/30/18 11:00 84 38 H 147/71 06/30/18 10:51 89 25 H 147/71 99 06/30/18 10:41 79 38 H 147/71 99 06/30/18 10:31 87 36 H 147/71 99 06/30/18 10:21 102 H 36 H 147/71 100 06/30/18 10:11 109 H 28 H 147/71 100 06/30/18 10:01 112 H 29 H 147/71 97 06/30/18 09:51 125 H 39 H 160/72 99 06/30/18 09:41 125 H 32 H 160/72 99 06/30/18 09:31 122 H 38 H 160/72 100 06/30/18 09:27 120 H 160/72 06/30/18 09:21 124 H 28 H 160/72 100 - Physical Examination General: No Apparent Distress, Cachectic HEENT: Positive: PERRL Neck: Positive: neck supple, trachea midline Cardiac: Positive: irregularly irregular Lungs: Positive: Rhonchi Neuro: Positive: Weakness, Other (Unresponsive) Abdomen: Positive: Soft Skin: Positive: Clear Extremities: Absent: edema - Labs and Meds Coagulation 07/01/18 Range/Units 06:10 PT 22.7 H (12.2-14.9) Sec. INR 1.86 H (0.87-1.13) Comprehensive Metabolic Panel 07/01/18 Range/Units 06:10 Sodium 153 H (137-145) mmol/L Potassium 4.7 (3.6-5.0) mmol/L Chloride 118.1 H (98-107) mmol/L Carbon Dioxide 23 (22-30) mmol/L BUN 59 H (9-20) mg/dL Creatinine 2.7 H (0.8-1.5) mg/dL Glucose 161 H (75-100) mg/dL Calcium 9.7 (8.4-10.2) mg/dL
--- NOTE | 2018-07-01 10:31 | Discharge Summary ---
Providers - Providers Date of Admission: 06/24/18 07:50 Date of discharge: 07/01/18 Attending physician: ROSALINDA MCKEON 06/24/18 08:27 Occupational Therapy Evaluate and Treat [CONS] Routine Comment: Reason For Exam: Neuro deficits Physical Therapy Evaluation and Treat [CONS] Routine Comment: Reason For Exam: Neuro deficits Speech Therapy Evaluation and Treat [CONS] Routine Reason For Exam: swallow eval 06/24/18 16:03 Consult to Physician [CONS] Routine Comment: Consulting Provider: RADHA COPELAND Physician Instructions: Reason For Exam: AMS 06/25/18 07:16 Consult to Dietitian/Nutrition [CONS] Routine Physician Instructions: Reason For Exam: Reason for Consult: Write/Manage Tube Feeding 06/25/18 14:53 Consult to Physician [CONS] Routine Comment: Consulting Provider: SHAN SIMS Physician Instructions: Reason For Exam: AMS, elevated troponin level 06/27/18 08:19 Consult to Physician [CONS] Routine Comment: Consulting Provider: CELSO BROWN Physician Instructions: Reason For Exam: CVA 06/29/18 10:55 Consult to Physician [CONS] Routine Comment: Consulting Provider: ADELFO WANG Physician Instructions: Reason For Exam: URBANO 06/30/18 09:21 Consult to Physician [CONS] Urgent Comment: Consulting Provider: VICKI FREIRE Physician Instructions: Reason For Exam: critical care management [facility] Reason for admission: cva Condition: Critical Pertinent studies: Head CTs Brain MRI 2d echo Carotid doppler Renal US CXR Abdomen xry Hospital course: Brief History 72-year-old -[place] male with past medical history significant for hypertension, CAD status post CABG, chronic A. fib, diabetes mellitus, hyperlipidemia, prostate cancer was brought to the emergency department via EMS after he was found by his son lying in the floor around 1 AM in the morning. His son said he was lying the floor, lost bowel and bladder activity, drooling of saliva but no seizure activity or fascial palsy. In the emergency department patient has elevated lactic acid level, elevated CpK and mild leukocytosis. Patient was admitted to the floor for further evaluation and management with acute stroke protocol. His workup showed acute CVA with progression with very poor prognosis. Family decided to place the patient to inpt hospice. Patient was then discharged with inpt hospice. Discharge diagnosis and management Altered mental status, likely due to Acute progression of CVA and possible seizure before admission - carotid Dopplers, echo; unremarkable - MRI/MRA showed Acute right posterior-superior frontal lobe white matter lacunar infarct -neurology consult appreciated, EEG showed diffuse slowing, encephalopathy - repeat CT head ordered as his mental status decline on 06/29/18 which showed: A large area of sulcal effacement, hypoattenuation and edema has developed throughout the right cerebral hemisphere measuring up to 12.8 x 3.7 cm in axial plane. - Patient is now on Keppra, atorvastatin and ASA Acute CVA with progression - - repeat CT head ordered on 06/29/18 which showed: A large area of sulcal effacement, hypoattenuation and edema has developed throughout the right cer ebral hemisphere measuring up to 12.8 x 3.7 cm in axial plane. - Given mannitol by neurology, transferred to ICU - held coumadin to prevent hemorrhagic conversion Seizure , likely from acute large CVA - cont keppra, EEG showed diffuse slowing, encephalopathy History of A. fib on Coumadin - continued coumadin following admission, continue to hold until clears by neurology due to Acute CVA with progression Hypertension, uncontrolled - increased BB, added norvasc - stopped losartan, aldcatone and lasix for URBANO Diabetes mellitus, uncontrolled - Managed with Sliding-scale insulin, Accu-Chek, adjusted his insulin dose, Rhabdomyolysis, lactic acidosis - Patient placed on IV fluids, trended down Elevated troponin level - cardiology consult appreciated, medical Mx for now SIRS, likely from acute CVA and seizure - Initially placed on levaquin renally dosed, Cx workup so far negative URBANO likely due to vasomotor nephropathy - stopped losartan, aldcatone and lasix for URBANO, managed with iv fluid with NS - obtained renal US, nephrology consulted Hypernatremia, managed with IV fluid Aspiration risk -On NG tube feeding; DVT prophylaxis -SCD for now Disposition - inpt hospice Prognosis; poor. Hospitalist Physical Patient is lethargic. with drooling saliva The patient appeared well nourished and normally developed. Vital signs as documented. Head exam is unremarkable. No scleral icterus . Neck is without jugular venous distension, thyromegaly, or carotid bruits. Lungs are clear to auscultation. Cardiac exam reveals S1 and s2 positive. Abdominal exam reveals normal bowel sounds. Extremities are nonedematous and both femoral and pedal pulses are normal. 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 commend Disposition: [id number]OSPICE ([facility]) Time spent for discharge: 34 minutes Core Measure Documentation - Palliative Care Palliative Care/ Comfort Measures: Hospice Care - Core Measures Any of the following diagnoses?: stroke - Stroke Discharge Requirements Statin for LDL = or >70 mg/dl on DC: Yes Anticoag for atrial fib/atrial flutter: No Reason for no anticoag for AF/F on DC: Medical Contraindication Antithrombotic for ischemic stroke: Yes Exam - Constitutional Vitals: Temp Pulse Resp BP Pulse Ox 103.9 F H 122 H 36 H 122/77 98 07/01/18 08:00 07/01/18 10:11 07/01/18 10:11 07/01/18 10:11 07/01/18 10:11 Plan Activity: other (bedrest) Follow up with: CALLI POLANCO MD [Primary Care Provider] - 7 Days Forms: Warfarin Discharge Instruction
--- NOTE | 2018-07-01 11:56 | Progress Note ---
Assessment and Plan 1. Acute kidney injury: Likely vasomotor URBANO. Renal function continue to decline. Renal US was negative for hydro. Avoid nephrotoxic agents. Meds dosage based on GFR. 2. FEN: Hypernatremia, likely from Mannitol. On Tube feeding. 3. Acute CVA. 4. Encephalopathy: Likely due to anoxic brain injury. 5. Rhabdomyolysis: Improved. 6. Seizures. 7. H/o A. fib. 8. Hypertension. 9. Diabetes mellitus, uncontrolled. 10. Elevated troponin level: Followed by Cards. 11. SIRS. Patient is being transferred to hospice care. Subjective Date of service: 07/01/18 Principal diagnosis: progressive stroke, stupor Interval history: Patient was seen and examined at the bedside. Objective - Vital Signs Vital signs: Vital Signs - 12hr 07/01/18 07/01/18 07/01/18 00:00 00:11 00:21 Temperature 99.1 F Pulse Rate 98 H 106 H 103 H Pulse Rate [ 94 H From Monitor] Pulse Rate [ 94 H Right Dorsalis Pedis] Respiratory 19 25 H 22 Rate Blood Pressure 119/71 119/71 119/71 O2 Sat by Pulse 98 99 99 Oximetry 07/01/18 07/01/18 07/01/18 00:31 00:41 00:51 Temperature Pulse Rate 114 H 105 H 102 H Pulse Rate [ From Monitor] Pulse Rate [ Right Dorsalis Pedis] Respiratory 23 24 20 Rate Blood Pressure 119/71 119/71 119/71 O2 Sat by Pulse 99 99 99 Oximetry 07/01/18 07/01/18 07/01/18 01:00 01:11 01:21 Temperature Pulse Rate 112 H 112 H 109 H Pulse Rate [ From Monitor] Pulse Rate [ Right Dorsalis Pedis] Respiratory 19 23 25 H Rate Blood Pressure 128/79 128/79 128/79 O2 Sat by Pulse 99 99 99 Oximetry 07/01/18 07/01/18 07/01/18 01:31 01:41 01:51 Temperature Pulse Rate 112 H 104 H 109 H Pulse Rate [ From Monitor] Pulse Rate [ Right Dorsalis Pedis] Respiratory 20 25 H 19 Rate Blood Pressure 128/79 128/79 128/79 O2 Sat by Pulse 99 99 98 Oximetry 07/01/18 07/01/18 07/01/18 02:00 02:11 02:21 Temperature Pulse Rate 107 H 108 H 109 H Pulse Rate [ From Monitor] Pulse Rate [ Right Dorsalis Pedis] Respiratory 19 18 24 Rate Blood Pressure 124/73 124/73 124/73 O2 Sat by Pulse 98 98 98 Oximetry 07/01/18 07/01/18 07/01/18 02:31 02:41 02:51 Temperature Pulse Rate 120 H 126 H 114 H Pulse Rate [ From Monitor] Pulse Rate [ Right Dorsalis Pedis] Respiratory 22 20 26 H Rate Blood Pressure 124/73 124/73 124/73 O2 Sat by Pulse 99 98 98 Oximetry 07/01/18 07/01/18 07/01/18 03:00 03:11 03:21 Temperature Pulse Rate 119 H 93 H 86 Pulse Rate [ From Monitor] Pulse Rate [ Right Dorsalis Pedis] Respiratory 19 25 H 18 Rate Blood Pressure 132/80 132/80 132/80 O2 Sat by Pulse 97 99 98 Oximetry 07/01/18 07/01/18 07/01/18 03:31 03:41 03:51 Temperature Pulse Rate 84 77 91 H Pulse Rate [ From Monitor] Pulse Rate [ Right Dorsalis Pedis] Respiratory 19 24 26 H Rate Blood Pressure 132/80 132/80 132/80 O2 Sat by Pulse 99 98 98 Oximetry 07/01/18 07/01/18 07/01/18 04:00 04:11 04:20 Temperature 99.9 F H Pulse Rate 96 H 97 H 84 Pulse Rate [ 90 From Monitor] Pulse Rate [ 89 Right Dorsalis Pedis] Respiratory 25 H 20 21 Rate Blood Pressure 120/73 120/73 120/73 O2 Sat by Pulse 99 99 99 Oximetry 07/01/18 07/01/18 07/01/18 04:31 04:41 04:51 Temperature Pulse Rate 83 94 H 96 H Pulse Rate [ From Monitor] Pulse Rate [ Right Dorsalis Pedis] Respiratory 21 22 16 Rate Blood Pressure 120/73 120/73 120/73 O2 Sat by Pulse 99 99 98 Oximetry 07/01/18 07/01/18 07/01/18 05:00 05:11 05:21 Temperature Pulse Rate 104 H 108 H 92 H Pulse Rate [ From Monitor] Pulse Rate [ Right Dorsalis Pedis] Respiratory 27 H 21 24 Rate Blood Pressure 133/77 133/77 133/77 O2 Sat by Pulse 98 98 98 Oximetry 07/01/18 07/01/18 07/01/18 05:30 05:41 05:51 Temperature Pulse Rate 98 H 108 H 107 H Pulse Rate [ From Monitor] Pulse Rate [ Right Dorsalis Pedis] Respiratory 21 19 21 Rate Blood Pressure 133/77 133/77 133/77 O2 Sat by Pulse 98 98 99 Oximetry 07/01/18 07/01/18 07/01/18 06:00 06:11 06:21 Temperature Pulse Rate 100 H 109 H 119 H Pulse Rate [ From Monitor] Pulse Rate [ Right Dorsalis Pedis] Respiratory 20 23 27 H Rate Blood Pressure 127/76 127/76 127/76 O2 Sat by Pulse 98 99 98 Oximetry 07/01/18 07/01/18 07/01/18 06:31 06:41 06:51 Temperature Pulse Rate 110 H 107 H 118 H Pulse Rate [ From Monitor] Pulse Rate [ Right Dorsalis Pedis] Respiratory 22 22 21 Rate Blood Pressure 127/76 127/76 127/76 O2 Sat by Pulse 98 98 98 Oximetry 07/01/18 07/01/18 07/01/18 07:00 07:11 07:21 Temperature Pulse Rate 102 H 113 H 118 H Pulse Rate [ From Monitor] Pulse Rate [ Right Dorsalis Pedis] Respiratory 29 H 21 22 Rate Blood Pressure 131/71 131/71 131/71 O2 Sat by Pulse 98 98 98 Oximetry 07/01/18 07/01/18 07/01/18 07:31 07:41 07:51 Temperature Pulse Rate 109 H 112 H 113 H Pulse Rate [ From Monitor] Pulse Rate [ Right Dorsalis Pedis] Respiratory 23 30 H 33 H Rate Blood Pressure 131/71 131/71 131/71 O2 Sat by Pulse 98 98 98 Oximetry 07/01/18 07/01/18 07/01/18 08:00 08:10 08:20 Temperature 103.9 F H Pulse Rate 120 H 124 H 112 H Pulse Rate [ 128 H From Monitor] Pulse Rate [ 126 H Right Dorsalis Pedis] Respiratory 30 H 35 H 29 H Rate Blood Pressure 121/66 121/66 121/66 O2 Sat by Pulse 98 98 98 Oximetry 07/01/18 07/01/18 07/01/18 08:31 08:41 08:51 Temperature Pulse Rate 124 H 118 H 111 H Pulse Rate [ From Monitor] Pulse Rate [ Right Dorsalis Pedis] Respiratory 34 H 32 H 36 H Rate Blood Pressure 121/66 121/66 O2 Sat by Pulse 98 98 98 Oximetry 07/01/18 07/01/18 07/01/18 09:00 09:11 09:21 Temperature Pulse Rate 126 H 113 H 135 H Pulse Rate [ From Monitor] Pulse Rate [ Right Dorsalis Pedis] Respiratory 39 H 37 H 39 H Rate Blood Pressure 122/77 122/77 122/77 O2 Sat by Pulse 97 99 99 Oximetry 07/01/18 07/01/18 07/01/18 09:31 09:41 09:51 Temperature Pulse Rate 131 H 138 H 124 H Pulse Rate [ From Monitor] Pulse Rate [ Right Dorsalis Pedis] Respiratory 33 H 39 H 32 H Rate Blood Pressure 122/77 122/77 122/77 O2 Sat by Pulse 98 99 98 Oximetry 07/01/18 07/01/18 07/01/18 09:53 10:00 10:11 Temperature Pulse Rate 131 H 122 H Pulse Rate [ From Monitor] Pulse Rate [ Right Dorsalis Pedis] Respiratory 38 H 36 H Rate Blood Pressure 133/69 122/77 O2 Sat by Pulse 99 95 98 Oximetry 07/01/18 07/01/18 07/01/18 10:21 10:31 10:41 Temperature Pulse Rate 129 H 132 H 131 H Pulse Rate [ From Monitor] Pulse Rate [ Right Dorsalis Pedis] Respiratory 32 H 33 H 32 H Rate Blood Pressure 122/77 122/77 133/69 O2 Sat by Pulse 99 98 98 Oximetry 07/01/18 07/01/18 07/01/18 10:51 11:01 11:11 Temperature Pulse Rate 130 H 125 H 131 H Pulse Rate [ From Monitor] Pulse Rate [ Right Dorsalis Pedis] Respiratory 33 H 29 H 39 H Rate Blood Pressure 133/69 131/68 131/68 O2 Sat by Pulse 99 94 98 Oximetry 07/01/18 07/01/18 11:21 11:31 Temperature Pulse Rate 136 H 124 H Pulse Rate [ From Monitor] Pulse Rate [ Right Dorsalis Pedis] Respiratory 32 H 28 H Rate Blood Pressure 131/68 131/68 O2 Sat by Pulse 98 98 Oximetry - General Appearance General appearance: well-developed, appears stated age, other (not in distress) EENT: ATNC Neck: supple Respiratory: Present: Clear to Ascultation Cardiology: S1S2, no murmurs Gastrointestinal: normoactive bowel sounds, no tenderness, no distended Integumentary: no rash Neurologic: obtunded Musculoskeletal: other (no edema) - Lab 06/30/18 04:40 07/01/18 06:10 Most recent lab results Calcium 9.7 mg/dL (8.4-10.2) 07/01/18 06:10 Phosphorus 3.00 mg/dL (2.5-4.5) 06/30/18 04:40 Magnesium 2.70 mg/dL (1.7-2.3) H 06/30/18 04:40 Urine Creatinine 69.3 mg/dL (0.1-20.0) H 06/29/18 17:40 Urine Sodium 89 mmol/L 06/29/18 17:40 Medications & Allergies - Medications Allergies/Adverse Reactions: Allergies nitroglycerin Allergy (Severe, Verified 01/16/16 17:45) Unknown Home Medications: Home Medications Medication Instructions Recorded Confirmed Last Taken Type Insulin Aspart Prot/Aspart(Nf) 25 unit SQ QAM 07/09/13 06/26/18 06/19/18 09:00 History [NovoLOG Mix 70/30 VIAL] Ergocalciferol [Vitamin D2] 1 cap PO QWEEK 01/17/16 06/26/18 06/19/18 08:00 History Aspirin [Aspirin BABY CHEW TAB] 81 mg PO QDAY tab.chew 07/01/18 Unknown Rx AtorvaSTATin [Lipitor] 40 mg PO QHS tablet 07/01/18 Unknown Rx Lispro Insulin [Humalog] 0 unit SUB-Q ACHS units 07/01/18 Unknown Rx Metoprolol [Lopressor TAB] 100 mg PO BID tablet 07/01/18 Unknown Rx Pantoprazole [Protonix TAB] 20 mg PO QDAY tablet.dr 07/01/18 Unknown Rx amLODIPine [Norvasc] 10 mg PO QDAY tablet 07/01/18 Unknown Rx dilTIAZem [Cardizem] 30 mg PO Q6HR tablet 07/01/18 Unknown Rx levETIRAcetam [Keppra] 750 mg PO BID oral.liqd 07/01/18 Unknown Rx Active Medications: Generic Name Dose Route Start Last Admin Trade Name Freq PRN Reason Stop Dose Admin Acetaminophen 650 mg 06/30/18 19:49 06/30/18 20:21 Tylenol FEEDTUBE 650 mg Q4H PRN Administration Pain, Mild (1-3) Amlodipine Besylate 10 mg 06/29/18 11:00 06/30/18 09:27 Norvasc PO 10 mg QDAY MICHEL Administration Lipase/Protease/Amylase 1 each 06/25/18 12:55 Pancreaze 10,500 Unit FEEDTUBE PRN PRN For Clogged Feeding Tube Aspirin 81 mg 06/29/18 10:00 06/30/18 09:26 Baby Aspirin PO 81 mg QDAY MICHEL Administration Atorvastatin Calcium 40 mg 06/24/18 22:00 06/30/18 21:16 Lipitor PO 40 mg QHS MICHEL Administration Bisacodyl 10 mg 06/24/18 08:27 Dulcolax NH QDAY PRN Constipation Dextrose 50 ml 06/24/18 08:29 D50w (25gm) Syringe IV PRN PRN Hypoglycemia Diltiazem HCl 30 mg 07/01/18 12:00 Cardizem PO Q6HR MICHEL Gabapentin 300 mg 06/25/18 10:00 06/30/18 21:16 Neurontin PO 300 mg BID MICHEL Administration Hydralazine HCl 10 mg 06/27/18 08:09 06/27/18 20:39 Apresoline IV 10 mg Q4H PRN Administration BP > 160/100 Sodium Chloride 500 mls @ 50 mls/hr 06/29/18 13:00 06/29/18 16:14 Nacl 0.9% 500 Ml IV 50 mls/hr DIRECT MICHEL Administration Insulin Human Isoph/Insulin Regular 25 unit 06/29/18 11:00 06/30/18 19:01 Humulin 70/30 SUB-Q 25 unit BIDDIAB MICHEL Administration Insulin Human Lispro 0 unit 06/24/18 11:30 06/30/18 21:17 Humalog SUB-Q 3 unit ACHS MICHEL Administration Protocol Levetiracetam 750 mg 06/27/18 10:00 06/30/18 21:15 Keppra PO 750 mg BID MICHEL Administration Magnesium Hydroxide 30 ml 06/24/18 08:27 Milk Of Magnesia PO Q4H PRN Constipation Metoclopramide HCl 10 mg 06/24/18 08:27 Reglan PO Q6H PRN Nausea And Vomiting Metoprolol Tartrate 100 mg 06/29/18 11:00 06/30/18 21:16 Lopressor PO 100 mg BID MICHEL Administration Ondansetron HCl 4 mg 06/24/18 08:27 Zofran IV Q8H PRN Nausea And Vomiting Pantoprazole Sodium 20 mg 06/25/18 10:00 06/30/18 09:27 Protonix PO 20 mg QDAY MICHEL Administration Promethazine HCl 25 mg 06/24/18 08:27 Phenergan NH Q6H PRN Nausea And Vomiting Simple Syrup 15 ml 06/25/18 12:55 Simple Syrup FEEDTUBE PRN PRN Hypoglycemia Simple Syrup 30 ml 06/25/18 12:55 Simple Syrup FEEDTUBE PRN PRN Hypoglycemia Sodium Bicarbonate 325 mg 06/25/18 12:55 Sodium Bicarbonate FEEDTUBE PRN PRN For Clogged Feeding Tube Sodium Chloride 10 ml 06/24/18 08:27 Sodium Chloride Flush Syringe 10 Ml IV PRN PRN LINE FLUSH
[2018-07-01] MEDS ORDERED: CARDIZEM PO SCH (12:00)
[2018-07-01] MEDS: NEURONTIN PO SCH (12:49)
[2018-07-01] MEDS: PROTONIX PO SCH (12:49)
[2018-07-01] MEDS: BABY ASPIRIN PO SCH (12:50)
[2018-07-01] MEDS: LOPRESSOR PO SCH (12:50)
[2018-07-01] MEDS: HumaLOG SUB-Q SCH ×2 (12:51→12:57)
[2018-07-01] MEDS: KEPPRA PO SCH (12:51)
[2018-07-01 13:18] VITALS: BP 110/60
--- NOTE | 2018-07-02 10:28 | Cat Scan Report ---
PROCEDURE: CT HEAD/BRAIN WO CON TECHNIQUE: A noncontrast CT of the head was performed. HISTORY: CVA with AMS COMPARISON: 06/29/2018 FINDINGS: As previously seen there is a very large right cerebral infarct. There is edema and mass effect with midline shift of approximately 5-6 mm, similar to previous. There is increased hyperdensity along the cortical margins and contreras-white interface suggestive of robbie e hemorrhagic transformation. Some of the hyperdensity appears sulcal and could be subarachnoid. IMPRESSION: Large right cerebral infarct with edema and mass effect. Midline shift is now 5-6 mm whic h is similar to the prior. There is some mild worsening of hyperdensity along contreras-white interface and cortical cysts margins. T his is compatible with hemorrhage. Some sulcal hyperdensity could represent subarachnoid blood. This document is electronically signed by Susana Campos MD., Jul 02 2018 10:26:28 AM ET
== END 2018-07-01 14:00 | disposition hospice, inpatient (51) | DRG 64 ==
LOC: ED 05:55 → IMCU 07:50 → CC1 06-29 19:01
PROVIDERS: ADMIT Internal Medicine; ATTEND Internal Medicine
DX: I63.511 Cerebral infarction due to unspecified occlusion or stenosis of right middle cerebral artery (principal); N17.0 Acute kidney failure with tubular necrosis; M62.82 Rhabdomyolysis; G93.40 Encephalopathy, unspecified; E87.2 Acidosis; R65.10 Systemic inflammatory response syndrome (SIRS) of non-infectious origin without acute organ dysfunction; E87.0 Hyperosmolality and hypernatremia; I11.0 Hypertensive heart disease with heart failure; I50.9 Heart failure, unspecified; E11.9 Type 2 diabetes mellitus without complications; M19.90 Unspecified osteoarthritis, unspecified site; J45.909 Unspecified asthma, uncomplicated; E86.0 Dehydration; I48.2 Chronic atrial fibrillation; I25.10 Atherosclerotic heart disease of native coronary artery without angina pectoris; E78.5 Hyperlipidemia, unspecified; F17.210 Nicotine dependence, cigarettes, uncomplicated; R56.9 Unspecified convulsions; Z95.1 Presence of aortocoronary bypass graft; Z85.46 Personal history of malignant neoplasm of prostate; Z79.4 Long term (current) use of insulin
CPT/HCPCS: 36415; 70450; 70544; 70551; 71045; 74018; 76770; 80048; 80053; 80061; 80307; 80320; 81001; 82140; 82550; 82570; 82607; 82962; 83036; 83735; 84100; 84300; 84443; 84484; 85007; 85025; 85610; 87040; 87086; 93005; 93010; 93306; 93880; 94760; 95819; 96365; G0378; A9270-GY; G0480; J0360; J0692; J1815; J1953; J1956; J2060; J2150; J7030; J7040